=== PATIENT | male | born 1960 | race Caucasian/White ===

== ENCOUNTER 2018-09-27 20:49 | Inpatient (IN) | payer BC, OTHER ==
--- NOTE | 2018-09-27 21:46 | ED ---
Headache - HPI Summary HPI Summary: The patient is a 58 year old M transferred to [facility] from [facility] with a chief complaint of a headache that started earlier today. He stated that the headache has been getting better but is still present and is located behind his eyes. He stated that the pain is currently a 2/10 in severity. He stated that he has trouble focusing his vision. He stated that he recently has had a PICC line placed in his left arm on 09/24/18 at 0500. He stated that he is currently taking ABX for an infection on his L foot. He is currently on Eilquis. He was transferred to [facility] for further neurological evaluations and an MRI per [facility]. - History Of Current Complaint Chief Complaint: EDHeadache Stated Complaint: MRI TO RULE OUT A STROKE PER EMS Time Seen by Provider: 09/27/18 21:38 Hx Obtained From: Patient Onset/Duration: Sudden Onset, Still Present Initially Headache Was: Moderate Currently Pain Is: Current Pain Scale(0-10)= - 2/10, Mild Timing: Constant Character: Migraine Location of Headache: Frontal - pt stated that it ws behind his eyes Aggravating Factor: Nothing Allevating Factors: Nothing Associated Signs And Symptoms: Negative - CP, SOB, fevers, chills, abdominal pain, N/V, and diaphoresis., Visual Changes - trouble focusing - Allergies/Home Medications Allergies/Adverse Reactions: Allergies Allergy/AdvReac Type Severity Reaction Status Date / Time niacin Allergy Rash Verified 09/27/18 21:34 Home Medications: Home Medications Apixaban* [Eliquis*] 5 mg PO DAILY 09/28/18 [History Confirmed 09/28/18] Humalog 15 units .ROUTE ACHS 09/28/18 [History Confirmed 09/28/18] Metoprolol Tartrate TAB* 25 mg PO DAILY 09/28/18 [History Confirmed 09/28/18] Toujeo Solostar Pen (NF) 90 units .ROUTE DAILY 09/28/18 [History Confirmed 09/28] Trulicity 1.5 mg PO DAILY 09/28/18 [History Confirmed 09/28/18] dilTIAZem HCl [Diltiazem HCl] 120 mg PO BID 09/28/18 [History Confirmed 09/28/18 ] glipiZIDE [Glipizide] 5 mg PO BID 09/28/18 [History Confirmed 09/28/18] PMH/Surg Hx/FS Hx/Imm Hx Previously Healthy: No Infectious Disease History: No Infectious Disease History: Denies: Traveled Outside the [place] in Last 30 Days - Social History Alcohol Use: None Substance Use Type: Reports: None Smoking Status (MU): Never Smoked Tobacco Review of Systems Negative: Fever, Chills, Skin Diaphoresis Positive: Other - trouble focusing Negative: Chest Pain Negative: Shortness Of Breath Negative: Abdominal Pain, Vomiting, Nausea Positive: Headache - migraine, located frontl behind his eyes All Other Systems Reviewed And Are Negative: Yes Physical Exam - Summary Physical Exam Summary: VITAL SIGNS: Reviewed. GENERAL: Patient is a well-developed and nourished male who is lying comfortable in the stretcher. Patient is not in any acute respiratory distress. HEAD AND FACE: No signs of trauma. No ecchymosis, hematomas or skull depressions. No sinus tenderness. EYES: PERRLA, EOMI x 2, No injected conjunctiva, no nystagmus. EARS: Hearing grossly intact. Ear canals and tympanic membranes are within normal limits. MOUTH: Oropharynx within normal limits. NECK: Supple, trachea is midline, no adenopathy, no JVD, no carotid bruit, no c- spine tenderness, neck with full ROM CHEST: Symmetric, no tenderness at palpation LUNGS: Clear to auscultation bilaterally. No wheezing or crackles. CVS: Regular rate and rhythm, S1 and S2 present, no murmurs or gallops appreciated. ABDOMEN: Soft, non-tender. No signs of distention. No rebound no guarding, and no masses palpated. Bowel sounds are normal. EXTREMITIES: FROM in all major joints, no edema, no cyanosis or clubbing. NEURO: Alert and oriented x 3. No acute neurological deficits. Speech is normal and follows commands. He is neurologically intact. SKIN: Dry and warm, picc line in L upper arm, peripheral arm from [place] in his R hand, ulcer on his L 1st toe. Triage Information Reviewed: Yes Vital Signs On Initial Exam: Initial Vitals Temp Pulse Resp BP Pulse Ox 98.2 F 104 18 151/91 94 09/27/18 20:56 09/27/18 20:56 09/27/18 20:56 09/27/18 20:56 09/27/18 20:56 Vital Signs Reviewed: Yes Diagnostics - Vital Signs Vital Signs Temp Pulse Resp BP Pulse Ox 09/27/18 21:30 106 20 132/99 96 09/27/18 21:01 110 18 94 09/27/18 21:00 105 23 151/98 94 09/27/18 20:56 98.2 F 104 18 151/91 94 - Laboratory Result Diagrams: 09/27/18 21:52 09/27/18 21:52 Lab Statement: Any lab studies that have been ordered have been reviewed, and results considered in the medical decision making process. - Radiology CXR Radiology Interpretation Completed By: ED Physician Summary of Radiographic Findings: No acute processes. Pending official review. - CT Brain MRI CT Interpretation Completed By: Radiologist Summary of CT Findings: 1. Restricted diffusion is identified within the left cerebellar lobe,. consistent with an acute infarct. Additional foci of restricted diffusion are identified within the bilateral occipital lobes, right frontal cortex, and right thalamus, also consistent with acute infarcts. Due to the distribution of ischemic change, embolic disease is considered. 2. There are scattered additional foci of FLAIR hyperintensity within the. cerebral white matter. In a patient this age, this likely represents chronic small vessel ischemic disease. 3. Mild atrophy. 4. There is abnormal signal intensity within the left transverse venous sinus, suggestive of slow flow or thrombosis. This can be further evaluated with MRV. 5. Posterior to the right cerebellar lobe, an extra-axial fluid collection is. identified, consistent with an arachnoid cyst or yang cisterna magna variant. ED physician has reviewed this report. Neck CTA CT Interpretation Completed By: Radiologist Summary of CT Findings: 1. No stenosis or occlusion of the extracranial internal carotid arteries. bilaterally. 2. A dominant left vertebral artery is visualized. 3. Additional findings described above. ED physician has reviewed this report. Head CTA CT Interpretation Completed By: Radiologist Summary of CT Findings: 1. There is a segment of the distal V4 segment of the right vertebral artery. with absence of enhancement, consistent with occlusion. 2. A dominant left vertebral artery is identified. 3. The left transverse venous sinuses poorly visualized medially. When. correlated with the MRI from the same day, thrombosis is considered. - EKG 2144 Cardiac Rate: Tachycardia - 101 BPM EKG Rhythm: Sinus Rhythm ST Segment: Normal Summary of EKG Findings: Sinus tachycardia 101 BPM and Q waves in inferior leads. ST waves are normal. Interpreted by Dr. Colby at 2144 09/27/18. Re-Evaluation - Re-Evaluation First Eval Re-Evaluation Time: 22:12 Change: Unchanged Comment: The pts PICC line was found to be in his artery and was successfully removed under sterile conditions at 2210. After the line was removed there was some active bleeding and the pts arm was bandaged and the wound was sterilized to prepare him for an MRI. The wound was bandaged by an lyle wrap. Second Eval Re-Evaluation Time: 00:01 Change: Improved Comment: Stated that he has no headache, visual changes, or weakness. Pt has L foot drop which the pt reported as old. Headache Course/Dx - Course Course Of Treatment: The patient is a 58 year old M transferred to [facility] from [facility] with a chief complaint of a migraine headache that started earlier today. He stated that the headache has been getting better but is still present and is located behind his eyes. He stated that the pain is currently a 2 /10 in severity. Pryor stated that the pt may need an MRI of his head and further neurological evaluations. His PE shows that the pt is neurologically intact and has a picc line in L upper arm, peripheral arm from [place] in his R hand, ulcer on his L 1st toe. This pt has abnormal lab results in WBC, RBC, MCH, Absolute neuts, and Absoloute monos. His EKG showed that he has Sinus tachycardia 101 BPM and Q waves in inferior leads. ST waves are normal. The pt s PICC line was found to be in his artery and was successfully removed under sterile conditions at 2210. After the line was removed there was some active bleeding and the pts arm was bandaged and the wound was sterilized to prepare him for an MRI. The wound was bandaged by an lyle wrap. CXR showed no acute processes. His Brain MRI shows the followin. Restricted diffusion is identified within the left cerebellar lobe,. consistent with an acute infarct. Additional foci of restricted diffusion are. identified within the bilateral occipital lobes, right frontal cortex, and. right thalamus, also consistent with acute infarcts. Due to the distribution of. ischemic change, embolic disease is considered. 2. There are scattered additional foci of FLAIR hyperintensity within the. cerebral white matter. In a patient this age, this likely represents chronic. small vessel ischemic disease. 3. Mild atrophy. 4. There is abnormal signal intensity within the left transverse venous sinus, suggestive of slow flow or thrombosis. This can be further evaluated with MRV. 5. Posterior to the right cerebellar lobe, an extra-axial fluid collection is. identified, consistent with an arachnoid cyst or yang cisterna magna variant. His head CTA showed the followin. There is a segment of the distal V4 segment of the right vertebral artery. with absence of enhancement, consistent with occlusion. 2. A dominant left vertebral artery is identified. 3. The left transverse venous sinuses poorly visualized medially. When. correlated with the MRI from the same day, thrombosis is considered. His Neck CTA shows the followin. No stenosis or occlusion of the extracranial internal carotid arteries. bilaterally. 2. A dominant left vertebral artery is visualized. 3. Additional findings described above. Dr. Guillen, neurology, was contacted who stated that the pt needed a head and neck CTA. The pt should also be admitted to [facility] for further work-up. Discussed head CTA with Dr. Guillen who reviewed the findings and stated that there was no need for heparin at 0415. Dr. Cooney, Hospitalist, admitted the pt to [facility] for further evaluation at 0439 with a Dx of a CVA. - Diagnoses Differential Diagnosis/HQI/PQRI: CVA Provider Diagnoses: CVA (cerebral vascular accident) Discharge - Sign-Out/Discharge Documenting (check all that apply): Patient Departure - admitted Patient Received Moderate/Deep Sedation with Procedure: No - Discharge Plan Condition: Stable Disposition: ADMITTED TO [facility] - Attestation Statements Document Initiated by Scribe: Yes Documenting Scribe: Mio Reid Provider For Whom Beth is Documenting (Include Credential): Gladis Colby MD Scribe Attestation: Mio Snow, scribed for Gladis Colby MD on 09/28/18 at 0448. Status of Scribe Document: Ready Consult Consult: Dr. Guillen, neurology, was contacted at 0050 who stated that the pt needed a head and neck CTA. The pt should also be admitted to [facility] for further work-up. Discussed head CTA with Dr. Reynoso who reviewed the findings and stated that there was no need for heparin.
[2018-09-27 22:00] LABS: ABS Basophils 0.2 10^3/ul (0-0.2); ABS Lymphocytes 3.7 10^3/ul (1.0-4.8); ABS Neutrophils 11.9 10^3/ul (1.5-7.7); Eosinophil % 0.2 %; Hematocrit 51 % (42-52); Hemoglobin 17.6 g/dL (14.0-18.0); Mean Corpuscular HGB Conc 35 g/dL (31-36); Mean Corpuscular Hemoglobin 32 pg (27-31); Mean Corpuscular Volume 92 fL (80-94); Mean Platelet Volume 10.2 fL (7.4-10.4); Nucleated Red Blood Cells % 0.1; Platelet Count 221 10^3/uL (150-450); Red Blood Count 5.49 10^6 /uL (4.18-5.48); Red Cell Distribution Width 13 % (10-15); White Blood Count 16.7 10^3/uL (3.5-10.8)
[2018-09-27 22:10] LABS: Activated Partial Thrombo Time 34.4 seconds (26.0-38.0); INR 1.01 (0.82-1.09)
[2018-09-27 22:18] LABS: Albumin/Globulin Ratio 1.3 (1-3); BUN/Creatinine Ratio 17.6 (8-20); Calcium 9.8 mg/dL (8.6-10.3); EGFR African American 111.3 (>60); EGFR Non-African American 91.9 (>60); Potassium 3.3 mmol/L (3.5-5.0); Total Bilirubin 0.6 mg/dL (0.2-1.0)
[2018-09-27] MEDS ORDERED: Potassium Chlor TAB* 20 MEQ TAB.ER PO ONE (22:28)
[2018-09-28] MEDS ORDERED: Iodixanol* (CONTRAST) 320 MG/ML 100 ML SDV IV ONE (01:31)
--- OUTSIDE RECORDS SUMMARY | 2018-09-28 03:43 | XMS REPORT | Continuity of Care Document ---
:1960 External Reference #:[id number] Author Name Julisa Montoya M.D. Address [address] [place] [address] Care Team Providers Name Role Phone Oli Lucero MD Care Team Information Private Secretary Unavailable Oli Lucero MD Primary Care Physician Unavailable Payers Date Identification Numbers Payment Provider Subscriber Policy Number: [id number] [place] [employer] Kaleb Kc PayID: [id number] [address] [address] [place] [address] Expires: 2018 Policy Number: [id number] [employer] Kaleb Kc PayID: [id number] [address] [address] [place] [address] Problems Active Problems Provider Date Candidiasis of skin and nails Julisa Montoya M.D. Onset: 09/08/2018 Secondary polycythemia Julisa Montoya M.D. Onset: 09/08/2018 Atrial fibrillation Julisa Montoya M.D. Onset: 06/30/2018 Type 2 diabetes mellitus with ulcer Julisa Montoya M.D. Onset: 06/30/2018 Acute osteomyelitis of ankle and/or Julisa Montoya M.D. Onset: 06/30/2018 foot Type 2 diabetes mellitus Tiffany Morris, NANDA, Onset: 05/21/2012 DISPATCH SPECIALIST Benign essential hypertension Tiffany Morris, MSN, Onset: 05/21/2012 DISPATCH SPECIALIST Premature beats Tiffany Morris, MSN, Onset: 05/21/2012 DISPATCH SPECIALIST Dyspnea Tiffany Morris, MSN, Onset: 05/21/2012 DISPATCH SPECIALIST Family History Date Family Member(s) Observation Comments Father Rheumatic Fever CVAs. at 67. 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 Work Status Not Currently Working ADL's/IADL's Independent with all ADL's Drive Patient drives Tobacco Use Start: Unknown End: Former Cigarette Smoker 1984 Unknown ETOH Use Denies alcohol use Tobacco Use Start: Unknown Patient denies history of smoking Recreational Drug Use Denies Drug Use Smoking Status Reviewed: 09/08/18 Patient denies history of smoking Allergies, Adverse Reactions, Alerts Active Allergies Reaction Severity Comments Date Storm Inhibitor cough 05/21/2012 Inactive Allergies NKDA 05/21/2012 Medications Active Medications SIG Qnty Indications Ordering Date Provider Fluconazole Take 2 tabs po on 43tabs M86.172 Julisa Montoya, 08/05/2018 200mg day one the M.D. Tablets continue with one tab PO daily for 42 days. Daptomycin 6 mg/kg iv x 1 1units M86.172 Julisa Montoya, 08/04/2018 500mg dose M.D. Solution Rec Daptomycin 6 mg/kg iv x 42 6weeksupply M86.172 Julisa Montoya, 08/04/2018 500mg days M.D. Solution Rec PICC Line picc line M86.172 Julisa Montoya, 08/04/2018 Insertion Per insertion per M.D. Protocol protocol [facility] M86.172 Julisa Montoya, 08/04/2018 Agency term IV M.D. antibiotics Flagyl one by mouth three 126tabs M86.172 Julisa Montoya, 08/04/2018 500mg times a day x 42 M.D. Tablets days Toujeo Max Oli Lucero MD Solostar 300Unit/ML Solution Pen-Inject Eliquis Unknown 5mg Tablets Diltiazem HCL Oli Lucero MD 120mg Tablets Metoprolol Unknown Tartrate 25mg Tablets Trulicity Unknown 1.5mg/0.5ML Solution Pen-Inject Glipizide Unknown 5mg Tablets History Medications Glipizide 1 po bid Unknown - 06/30/2018 5mg Tablets Metformin HCL 1 po bid Unknown - 06/30/2018 850mg Tablets Humulin R sliding scale Unknown - 06/30/2018 100Unit/ML Solution Amlodipine Besylate 1 po qd 90tabs Unknown - 06/30/2018 10mg Tablets Aspir-81 1 po qd 60tabs Unknown - 06/30/[address] Fish Oil po qd 90caps Unknown - 06/30/2018 1000mg Capsules Basaglar Jose Alfredopen Unknown - 08/04/2018 100Unit/ML Solution Pen-Inject Sulfamethoxazole/Trimethoprim Unknown - 08/04/2018 DS 800-160mg Tablets Vital Signs Date Vital Result Comment 09/08/2018 2:11pm BP Systolic Sitting Right Arm 165 mmHg BP Diastolic Sitting Right Arm 105 mmHg Body Temperature 97.4 F Heart Rate 75 /min Height 75 inches 6'3" Weight 227.00 lb BMI (Body Mass Index) 28.4 kg/m2 BSA (Body Surface Area) 2.32 m2 [place] body weight in kilograms 89 kg 08/04/2018 2:28pm BP Systolic Sitting Left Arm 161 mmHg BP Diastolic Sitting Left Arm 93 mmHg Body Temperature 97.4 F Heart Rate 89 /min Height 75 inches 6'3" Weight 235.00 lb BMI (Body Mass Index) 29.4 kg/m2 BSA (Body Surface Area) 2.35 m2 [place] body weight in kilograms 89 kg 06/30/2018 1:03pm BP Systolic Sitting Left Arm 150 mmHg BP Diastolic Sitting Left Arm 96 mmHg Body Temperature 97.9 F Heart Rate 90 /min Height 75 inches 6'3" Weight 230.00 lb BMI (Body Mass Index) 28.7 kg/m2 BSA (Body Surface Area) 2.33 m2 [place] body weight in kilograms 89 kg 05/21/2012 9:16am BP Systolic Sitting Right Arm 138 mmHg BP Diastolic Sitting Right Arm 96 mmHg BP Systolic Sitting Left Arm 142 mmHg BP Diastolic Sitting Left Arm 98 mmHg Heart Rate 71 /min Respiratory Rate 16 /min Height 75 inches 6'3" Weight 229.00 lb BMI (Body Mass Index) 28.6 kg/m2 Results Test Date Facility Test Result H/L Range Note CBC 09/06/2018 [facility] White Blood 8.1 K/uL Normal 3.4-10.5 1 W/Automated [address] [place] [address] [phone] Red Blood Count 5.37 M/uL Normal 4.20-5.80 Hemoglobin 17.4 gm/dL High 12.8-17.0 Hematocrit 49.9 % High 38.0-48.0 Mean Cell Volume 92.9 fl Normal 80.0-96.0 Mean Corpuscular HGB 32.4 pg Normal 27.0-33.0 Mean Corpuscular HGB Conc 34.9 g/dL Normal 31.7-36.0 Platelet Count 218 K/uL Normal 155-360 Red Cell Distri Width SD 42.6 fl Normal 36-51 Red Cell Distri Width %CV 12.4 % Normal 11.6-15.8 Mean Platelet Volume 12.4 fl High 6.6-10.6 Neut% 55.7 % Normal 33.0-73.0 Lymph % 34.8 % Normal 20.0-42.0 [place] % 5.9 % Normal 0.0-10.0 Eo% 1.7 % Normal 0.0-6.6 Bas% 1.2 % High 0.0-1.1 Immature Grans 0.7 % Normal 0.0-5.0 NRBC % 0.0 /100WBC < 10/ 100 WBC Neut# 4.52 K/uL Normal 1.8-7.0 Lymph # 2.83 K/uL Normal 1.0-4.0 [place] # 0.48 K/uL Normal 0.0-0.8 Eos # 0.14 K/uL Normal 0.0-0.5 Baso # 0.10 K/uL Normal 0.0-0.1 Immature Grans Absolute 0.06 K/uL NRBC # 0.00 K/uL Comprehensive Metabolic 09/06/2018 [facility] Glucose 233 mg/dL High 74-[address] [place] [address] [phone] BUN 15 mg/dL Normal 7-18 Creatinine 0.8 mg/dL Normal 0.6-1.3 Glom Filtration Rate, Estimate >60 mL/min >60 If >60 mL/min >60 2 BUN/Creat 18.7 ratio Sodium 140 mmol/L Normal 136-145 Potassium 4.1 mmol/L Normal 3.5-5.1 Chloride 105 mmol/L Normal 98-107 Carbon Dioxide 27 mmol/L Normal 21-32 Anion Gap 8 mEq/L Normal 8-16 Calcium 8.7 mg/dL Normal 8.5-10.1 Total Protein 6.9 g/dL Normal 6.4-8.2 Albumin 3.4 g/dL Normal 3.4-5.0 Globulin 3.5 g/dL Normal 1.9-4.3 Alb/Glob 1.0 ratio Bilirubin,Total 0.4 mg/dL Normal 0.2-1.0 Sgot/Ast 62 U/L High 15-37 SGPT/Alt 103 U/L High 12-78 Alkaline Phosphatase 115 U/L Normal 45-117 Laboratory test finding 09/06/2018 [facility] CK 137 U/L Normal 39-308 3 [address] [place], [place] [id number] [phone] C-Reactive Protein,Quant < 3.0 mg/L <3.0 4 Laboratory test finding 08/30/2018 [facility] CK 187 U/L Normal 39-308 5, 6 [address] [place] [address] [phone] C-Reactive Protein,Quant < 3.0 mg/L <3.0 7 Comprehensive Metabolic 08/30/2018 [facility] Glucose 196 mg/dL High 74-106 Panel [address] [place] [address] [phone] BUN 16 mg/dL Normal 7-18 Creatinine 0.9 mg/dL Normal 0.6-1.3 Glom Filtration Rate, Estimate >60 mL/min >60 If >60 mL/min >60 8 BUN/Creat 17.7 ratio Sodium 141 mmol/L Normal 136-145 Potassium 4.1 mmol/L Normal 3.5-5.1 Chloride 105 mmol/L Normal 98-107 Carbon Dioxide 26 mmol/L Normal 21-32 Anion Gap 10 mEq/L Normal 8-16 Calcium 8.6 mg/dL Normal 8.5-10.1 Total Protein 6.9 g/dL Normal 6.4-8.2 Albumin 3.4 g/dL Normal 3.4-5.0 Globulin 3.5 g/dL Normal 1.9-4.3 Alb/Glob 1.0 ratio Bilirubin,Total 0.4 mg/dL Normal 0.2-1.0 Sgot/Ast 60 U/L High 15-37 SGPT/Alt 103 U/L High 12-78 Alkaline Phosphatase 100 U/L Normal 45-117 CBC W/Automated 08/30/2018 [facility] White Blood 7.8 K/uL Normal 3.4-10.[address] Count [place], [place] [id number] [phone] Red Blood Count 5.39 M/uL Normal 4.20-5.80 Hemoglobin 17.5 gm/dL High 12.8-17.0 Hematocrit 50.9 % High 38.0-48.0 Mean Cell Volume 94.4 fl Normal 80.0-96.0 Mean Corpuscular HGB 32.5 pg Normal 27.0-33.0 Mean Corpuscular HGB Conc 34.4 g/dL Normal 31.7-36.0 Platelet Count 212 K/uL Normal 155-360 Red Cell Distri Width SD 43.8 fl Normal 36-51 Red Cell Distri Width %CV 12.8 % Normal 11.6-15.8 Mean Platelet Volume 12.5 fl High 6.6-10.6 Neut% 51.7 % Normal 33.0-73.0 Lymph % 37.7 % Normal 20.0-42.0 [place] % 6.7 % Normal 0.0-10.0 Eo% 1.9 % Normal 0.0-6.6 Bas% 1.4 % High 0.0-1.1 Immature Grans 0.6 % Normal 0.0-5.0 NRBC % 0.0 /100WBC < 10/ 100 WBC Neut# 4.02 K/uL Normal 1.8-7.0 Lymph # 2.93 K/uL Normal 1.0-4.0 [place] # 0.52 K/uL Normal 0.0-0.8 Eos # 0.15 K/uL Normal 0.0-0.5 Baso # 0.11 K/uL High 0.0-0.1 Immature Grans Absolute 0.05 K/uL NRBC # 0.00 K/uL CBC W/Automated 08/23/2018 [facility] White Blood 11.0 K/uL High 3.4-10.[address] Count [place], [place] [id number] [phone] Red Blood Count 5.79 M/uL Normal 4.20-5.80 Hemoglobin 18.7 gm/dL High 12.8-17.0 Hematocrit 55.1 % High 38.0-48.0 Mean Cell Volume 95.2 fl Normal 80.0-96.0 Mean Corpuscular HGB 32.3 pg Normal 27.0-33.0 Mean Corpuscular HGB Conc 33.9 g/dL Normal 31.7-36.0 Platelet Count 227 K/uL Normal 155-360 Red Cell Distri Width SD 45.4 fl Normal 36-51 Red Cell Distri Width %CV 13.1 % Normal 11.6-15.8 Mean Platelet Volume 12.4 fl High 6.6-10.6 Neut% 62.4 % Normal 33.0-73.0 Lymph % 28.9 % Normal 20.0-42.0 [place] % 5.4 % Normal 0.0-10.0 Eo% 1.3 % Normal 0.0-6.6 Bas% 1.5 % High 0.0-1.1 Immature Grans 0.5 % Normal 0.0-5.0 NRBC % 0.0 /100WBC < 10/ 100 WBC Neut# 6.88 K/uL Normal 1.8-7.0 Lymph # 3.19 K/uL Normal 1.0-4.0 [place] # 0.59 K/uL Normal 0.0-0.8 Eos # 0.14 K/uL Normal 0.0-0.5 Baso # 0.16 K/uL High 0.0-0.1 Immature Grans Absolute 0.06 K/uL NRBC # 0.00 K/uL Laboratory test 08/23/2018 [facility] C-Reactive < 3.0 mg/L <3.0 [address] Protein,[place] [address] [phone] CK 117 U/L Normal 39-308 10 Comprehensive Metabolic 08/23/2018 [facility] Glucose 136 mg/dL High 74-[address] [place] [address] [phone] BUN 18 mg/dL Normal 7-18 Creatinine 0.9 mg/dL Normal 0.6-1.3 Glom Filtration Rate, Estimate >60 mL/min >60 If >60 mL/min >60 11 BUN/Creat 20.0 ratio Sodium 142 mmol/L Normal 136-145 Potassium 3.7 mmol/L Normal 3.5-5.1 Chloride 106 mmol/L Normal 98-107 Carbon Dioxide 25 mmol/L Normal 21-32 Anion Gap 11 mEq/L Normal 8-16 Calcium 9.0 mg/dL Normal 8.5-10.1 Total Protein 7.1 g/dL Normal 6.4-8.2 Albumin 3.6 g/dL Normal 3.4-5.0 Globulin 3.5 g/dL Normal 1.9-4.3 Alb/Glob 1.0 ratio Bilirubin,Total 0.5 mg/dL Normal 0.2-1.0 Sgot/Ast 79 U/L High 15-37 SGPT/Alt 118 U/L High 12-78 Alkaline Phosphatase 99 U/L Normal 45-117 Anaerobic Culture 07/29/2018 [facility] Gram Stain RARE GRAM 12, 13 W/ GR Stain [address] POSITI <[place] [address] NOTE> [phone] Gram Stain RARE WHITE BLOOD <SEE NOTE> 14 Anaerobic Culture NO ANAEROBES ISO <SEE NOTE> 15 Tissue Culture W/ 07/29/2018 [facility] Gram Stain RARE GRAM POSITI 16 Gram Stain [address] <SEE NOTE> [place] [address] [phone] Gram Stain RARE WHITE BLOOD <SEE NOTE> 17 Aerobic Culture NO PATHOGENS ISO <SEE NOTE> 18 Blood Culture 06/30/2018 [facility] Blood Culture NO GROWTH: 19, [address] Aerobic FINAL <[place] [address] NOTE> [phone] Blood Culture Anaerobic NO GROWTH: FINAL <SEE NOTE> 21 Protime 06/30/2018 [facility] Protime 14.5 seconds High 12.0-14.[address] [place] [address] [phone] Inr 1.1 Normal 0.9-1.1 22 Anticoagulant Therapy? Unknown Comprehensive Metabolic 06/30/2018 [facility] Glucose 284 mg/dL High 74-[address] [place] [address] [phone] BUN 21 mg/dL High 7-18 Creatinine 1.0 mg/dL Normal 0.6-1.3 Glom Filtration Rate, Estimate >60 mL/min >60 If >60 mL/min >60 23 BUN/Creat 21.0 ratio Sodium 137 mmol/L Normal 136-145 Potassium 4.2 mmol/L Normal 3.5-5.1 Chloride 107 mmol/L Normal 98-107 Carbon Dioxide 22 mmol/L Normal 21-32 Anion Gap 8 mEq/L Normal 8-16 Calcium 9.0 mg/dL Normal 8.5-10.1 Total Protein 7.2 g/dL Normal 6.4-8.2 Albumin 3.7 g/dL Normal 3.4-5.0 Globulin 3.5 g/dL Normal 1.9-4.3 Alb/Glob 1.1 ratio Bilirubin,Total 0.4 mg/dL Normal 0.2-1.0 Sgot/Ast 30 U/L Normal 15-37 SGPT/Alt 81 U/L High 12-78 Alkaline Phosphatase 124 U/L High 45-117 Laboratory test 06/30/2018 [facility] CK 160 U/L Normal 39-[address] [place] [address] [phone] CBC W/Automated 06/30/2018 [facility] White Blood 9.4 K/uL Normal 3.4-10.[address] [place] [address] [phone] Red Blood Count 5.52 M/uL Normal 4.20-5.80 Hemoglobin 17.9 gm/dL High 12.8-17.0 Hematocrit 50.7 % High 38.0-48.0 Mean Cell Volume 91.8 fl Normal 80.0-96.0 Mean Corpuscular HGB 32.4 pg Normal 27.0-33.0 Mean Corpuscular HGB Conc 35.3 g/dL Normal 31.7-36.0 Platelet Count 224 K/uL Normal 155-360 Red Cell Distri Width SD 41.4 fl Normal 36-51 Red Cell Distri Width %CV 12.3 % Normal 11.6-15.8 Mean Platelet Volume 11.6 fl High 6.6-10.6 Neut% 63.5 % Normal 33.0-73.0 Lymph % 27.1 % Normal 20.0-42.0 [place] % 6.3 % Normal 0.0-10.0 Eo% 1.3 % Normal 0.0-6.6 Bas% 1.2 % High 0.0-1.1 Immature Grans 0.6 % Normal 0.0-5.0 NRBC % 0.0 /100WBC < 10/ 100 WBC Neut# 5.94 K/uL Normal 1.8-7.0 Lymph # 2.53 K/uL Normal 1.0-4.0 [place] # 0.59 K/uL Normal 0.0-0.8 Eos # 0.12 K/uL Normal 0.0-0.5 Baso # 0.11 K/uL High 0.0-0.1 Immature Grans Absolute 0.06 K/uL NRBC # 0.00 K/uL Anticoagulant Therapy? Unknown Laboratory test 06/30/2018 [facility] C-Reactive < 3.0 mg/L <3.[address] Protein,[place] [address] [phone] Blood Culture 06/30/2018 [facility] Blood Culture NO GROWTH: [address] Aerobic FINAL <[place] [address] NOTE> [phone] Blood Culture Anaerobic NO GROWTH: FINAL <SEE NOTE> 25 1 HBO THERAPY 2 Note: Persistent reduction for 3 months or more in an eGFR <60 mL/min/1.73 m2 defines CKD. Patients with eGFR values >/=60 mL/min/1.73 m2 may also have CKD if evidence of persistent proteinuria is present. The original MDRD equation for estimated GFR is not valid for patients less than 18 years of age. Additional information may be found at [email or web address]. 3 FAX RESULTS TO HCR [phone] FAX RESULTS TO HCR [phone] 5 M86.172 6 [facility] FAX [phone] [facility] FAX [phone] Note: Persistent reduction for 3 months or more in an eGFR <60 mL/min/1.73 m2 defines CKD. Patients with eGFR values >/=60 mL/min/1.73 m2 may also have CKD if evidence of persistent proteinuria is present. The original MDRD equation for estimated GFR is not valid for patients less than 18 years of age. Additional information may be found at www.[email or web address]. 9 COPY TO BRIOVA [phone] 10 COPY TO BRIOVA [phone] Note: Persistent reduction for 3 months or more in an eGFR <60 mL/min/1.73 m2 defines CKD. Patients with eGFR values >/=60 mL/min/1.73 m2 may also have CKD if evidence of persistent proteinuria is present. The original MDRD equation for estimated GFR is not valid for patients less than 18 years of age. Additional information may be found at [email or web address]. 12 M86.172 OSTEOMYLITIS LEFT FOOT 13 RARE GRAM POSITIVE COCCI 14 RARE WHITE BLOOD CELLS 15 NO ANAEROBES ISOLATED 16 RARE GRAM POSITIVE COCCI 17 RARE WHITE BLOOD CELLS 18 NO PATHOGENS ISOLATED 19 M86.172 20 NO GROWTH: FINAL REPORT 21 NO GROWTH: FINAL REPORT 22 THERAPEUTIC INR RANGE: 2.0 - 3.0 DVT, Pulmonary embolus, prophylaxis against venous thrombosis or systemic embolization in high risk patients. 2.5 - 3.5 Mechanical heart valves 23 Note: Persistent reduction for 3 months or more in an eGFR <60 mL/min/1.73 m2 defines CKD. Patients with eGFR values >/=60 mL/min/1.73 m2 may also have CKD if evidence of persistent proteinuria is present. The original MDRD equation for estimated GFR is not valid for patients less than 18 years of age. Additional information may be found at www.[email or web address]. 24 NO GROWTH: FINAL REPORT 25 NO GROWTH: FINAL REPORT Procedures Date Code Description Status 06/14/2012 56269 ECHO Transthoracic Inc Performance Continuous Completed Electrocardio 05/21/2012 96252 EKG-Tracing And Report Completed 05/21/2012 67489 EKG-Tracing And Report Completed 02/07/2008 82776 Radiology, Hip Complete 2 Views Completed 02/07/2008 60605 Radiology, Pelvis 1 Or 2 Views Completed 12/09/2007 34247 Radiology, Hip Complete 2 Views Completed 12/09/2007 33139 Radiology, Pelvis 1 Or 2 Views Completed 10/28/2007 70068 Radiology, Hip Complete 2 Views Completed 10/28/2007 08386 Radiology, Pelvis 1 Or 2 Views Completed 09/30/2007 87172 Radiology, Hip Complete 2 Views Completed 08/24/2007 06923 Radiology, Hips Min. 2 Views, Including Pelvis Completed 05/19/2007 48600 Percutaneous skeletal fixation femoral fracture proximal Completed end,neck Encounters Type Date Location Provider Dx Diagnosis Office Visit 09/08/2018 Physical Medicine Julisa Montoya M86.172 Other acute 1:45p & Infectious M.D. osteomyelitis, Disease left ankle and foot D75.1 Secondary polycythemia I10 Essential (primary) hypertension E11.621 Type 2 diabetes mellitus with foot ulcer I48.91 Unspecified atrial fibrillation B37.2 Candidiasis of skin and nail Office Visit 08/04/2018 Physical Julisa Montoya M86.172 Other acute 2:00p Medicine & M.D. osteomyelitis, left Infectious ankle and foot Disease E11.621 Type 2 diabetes mellitus with foot ulcer I10 Essential (primary) hypertension I48.91 Unspecified atrial fibrillation Office Visit 06/30/2018 Physical Julisa Montoya M86.172 Other acute 1:00p Medicine & M.D. osteomyelitis, left Infectious ankle and foot Disease I10 Essential (primary) hypertension E11.621 Type 2 diabetes mellitus with foot ulcer I48.91 Unspecified atrial fibrillation Office Visit 05/21/2012 9:30a Cardiology Office Tiffany Morris 786.05 Shortness Of [place], MSN, Breath DISPATCH SPECIALIST 427.69 Premature Beats Other 401.1 Hypertension Benign 250.00 Diabetes Mellitus W/O Compl Type II Or Unspec Controlled Office Visit 02/07/2008 Valery Smith V67.4 Exam Follow Up 9:45a Office MD Keily Treatment Healed Fracture Office Visit 12/09/2007 Valery Smith 820.02 FX Transcervical 9:45a Office MD Keily Midcervical Section Closed Office Visit 10/28/2007 Valery Smith 820.22 FX Pertrochanteric 10:45a Office MD Keily Subtrochanteric Section Closed V67.4 Exam Follow Up Treatment Healed Fracture Office Visit 09/30/2007 Valery Smith 820.02 FX Transcervical 9:30a Office MD Keily Midcervical Section Closed V67.4 Exam Follow Up Treatment Healed Fracture Office Visit 08/24/2007 Valery Smith 820.02 FX Transcervical 8:45a Office MD Keily Midcervical Section Closed Plan of Treatment Future Appointment(s):10/06/2018 1:00 pm - Julisa Montoya M.D. at Physical Medicine & Infectious Lyzkmrt4810/26/2018 9:00 am - Ward Messina DPM at Podiatry Udpfku0809/08/2018 - Julisa Montoya M.D.M86.172 Other acute osteomyelitis, left ankle and footNew Xrays:MRI, Low Extremity, No Joint, W/O Contrast, Ordered : 09/08/18Follow up:3-4 fvebpQ62.1 Secondary polycythemiaReferral:Gayathri Jimenez DO, Hematology & FgowlgirN51 Essential (primary) axjqzsbzfbrjY81.621 Type 2 diabetes mellitus with foot qzfjfZ88.91 Unspecified atrial ftnjleuintuhZ77.2 Candidiasis of skin and nail
[2018-09-28] MEDS ORDERED: NS 0.9% 1000 ML** 1,000 ML IV SCH (06:00)
[2018-09-28] MEDS: Diltiazem TAB* 60 MG PO SCH ×2 (08:50→22:21)
[2018-09-28] MEDS ORDERED: Metoprolol Tartrate TAB* 25 MG PO SCH (09:00)
[2018-09-28] MEDS ORDERED: Insulin GLARGINE(*) 1 UNITS UNIT SUBCUT SCH ×2 (09:00→21:00)
--- NOTE | 2018-09-28 09:07 | PN ---
Subjective - Subjective Reason for Note: Progress Note History: I am Mr Kc's primary care physician and also his attending physician. He has had osteomyelitis and an ulcer of his right hallux. He has been receiving his care in [place]. He has had hyperbaric O2 therapy and parenteral antibacterials. He lives alone and had a PICC line in situ - this fell out when he was repairing his car. A new one was sited in his left brachial artery on 09/24/2018. He had x 2 infusions of antibacterials. He developed severe pain and headache. He did not take his eliquis the next 2 days. He presented with severe headache to [facility] emergency room and was transferred to our ICU. MRI scan suggested multiple areas of diffusion restriction left cerebellar lobe, both occipital lobes and right frontal cortex. His headache has receded. He is feeling much better. In particular, he is not aware of any focal neurological deficits. He has some "floaters" in both eyes - similar to what he has had with migraines. He has managed to walk to and fro the bathroom this morning. Active Problems: Active Problems Acute headache (Acute) R51 Arterial embolism (Acute) I74.9 CVA (cerebral vascular accident) (Acute) I63.9 Cerebrovascular accident (CVA) due to embolism (Acute) I63.9 On continuous oral anticoagulation (Acute) Z79.01 Osteomyelitis of toe of right foot (Acute) M86.9 PICC (peripherally inserted central catheter) removal (Acute) Z45.2 Diabetes mellitus with neuropathy (Chronic) E11.40 History of atrial fibrillation (Chronic) Z86.79 Hypertension, essential (Chronic) I10 Hypertriglyceridemia (Chronic) E78.1 Left hemiparesis (Chronic) G81.94 Poor compliance (Chronic) Z91.19 Type 2 diabetes mellitus with hyperglycemia (Chronic) E11.65 Current Medications: Current Medications Diltiazem HCl (Cardizem Tab*) 120 mg PO BID PENDING SALE TO [facility] Last Admin: 09/28/18 08:50 Dose: 120 mg Sodium Chloride (Ns 0.9% 1000 Ml) 1,000 mls @ 25 mls/hr IV PER RATE PENDING SALE TO [facility] Insulin Glargine (Lantus(*)) 72 units SUBCUT BID PENDING SALE TO [facility] Metoprolol Tartrate (Lopressor Tab*) 25 mg PO DAILY PENDING SALE TO [facility] Last Admin: 09/28/18 08:50 Dose: 25 mg - Review of Systems Pulmonary: Negative: Cough, Wheezing, Respiratory Distress Cardiology: Negative: Chest Pain, Palpitations, Swelling of Ankles Gastroenterology: Negative: Abdominal Pain, Nausea, Vomiting, Heartburn, Change in Bowel Habits Genital - Urinary: Negative: Dysuria, Polyuria Neurology: Positive: Headache, Change in Vision, Hx of Stroke\\TIA Negative: Change in Balancing, Change in Coordination, Change in Memory, Change in Speech, Change in Walking Psychiatry: Positive: Normal Home Medications: Home Medications Medication Instructions Recorded Confirmed Type Apixaban* [Eliquis*] 5 mg PO DAILY 09/28/18 09/28/18 History Humalog 15 units .ROUTE ACHS 09/28/18 09/28/18 History Metoprolol Tartrate TAB* 25 mg PO DAILY 09/28/18 09/28/18 History Toujeo Solostar Pen (NF) 90 units .ROUTE DAILY 09/28/18 09/28/18 History Trulicity 1.5 mg PO DAILY 09/28/18 09/28/18 History dilTIAZem HCl [Diltiazem HCl] 120 mg PO BID 09/28/18 09/28/18 History glipiZIDE [Glipizide] 5 mg PO BID 09/28/18 09/28/18 History Allergies: Allergies Allergy/AdvReac Type Severity Reaction Status Date / Time niacin Allergy Rash Verified 09/27/18 21:34 Objective - Vital Signs Vital Signs: Vital Signs 09/27/18 09/27/18 09/27/18 20:56 21:00 21:01 Temperature 98.2 F Pulse Rate 104 105 110 Respiratory 18 23 18 Rate Blood Pressure 151/91 151/98 (mmHg) O2 Sat by Pulse 94 94 94 Oximetry 09/27/18 09/27/18 09/27/18 21:30 22:00 22:01 Temperature Pulse Rate 106 105 101 Respiratory 20 27 24 Rate Blood Pressure 132/99 136/103 (mmHg) O2 Sat by Pulse 96 94 94 Oximetry 09/27/18 09/27/18 09/27/18 23:00 23:18 23:44 Temperature Pulse Rate 101 107 112 Respiratory 20 Rate Blood Pressure 150/111 138/99 (mmHg) O2 Sat by Pulse 94 96 93 Oximetry 09/27/18 09/28/18 09/28/18 23:59 00:01 00:14 Temperature Pulse Rate 102 103 102 Respiratory 9 14 22 Rate Blood Pressure 157/92 143/89 (mmHg) O2 Sat by Pulse 92 94 95 Oximetry 09/28/18 09/28/18 09/28/18 00:24 00:30 00:34 Temperature Pulse Rate 101 93 98 Respiratory 23 19 22 Rate Blood Pressure 147/86 145/103 147/100 (mmHg) O2 Sat by Pulse 94 95 93 Oximetry 09/28/18 09/28/18 09/28/18 00:39 00:44 00:49 Temperature Pulse Rate 103 100 102 Respiratory 18 7 16 Rate Blood Pressure 144/98 149/99 144/93 (mmHg) O2 Sat by Pulse 93 93 92 Oximetry 09/28/18 09/28/18 09/28/18 00:54 00:59 01:01 Temperature Pulse Rate 102 96 102 Respiratory 16 27 29 Rate Blood Pressure 150/95 146/101 (mmHg) O2 Sat by Pulse 93 92 92 Oximetry 09/28/18 09/28/18 09/28/18 01:04 01:09 01:14 Temperature Pulse Rate 91 103 102 Respiratory 21 22 23 Rate Blood Pressure 144/95 148/103 138/99 (mmHg) O2 Sat by Pulse 92 93 92 Oximetry 09/28/18 09/28/18 09/28/18 01:19 01:24 01:29 Temperature Pulse Rate 101 100 103 Respiratory 19 17 16 Rate Blood Pressure 135/100 155/101 138/103 (mmHg) O2 Sat by Pulse 92 94 92 Oximetry 09/28/18 09/28/18 09/28/18 01:34 01:39 02:00 Temperature Pulse Rate 100 94 Respiratory 14 15 20 Rate Blood Pressure 137/109 140/101 143/98 (mmHg) O2 Sat by Pulse 95 95 Oximetry 09/28/18 09/28/18 09/28/18 02:01 02:05 02:10 Temperature Pulse Rate 94 97 94 Respiratory 22 25 21 Rate Blood Pressure 147/85 149/95 (mmHg) O2 Sat by Pulse 94 93 94 Oximetry 09/28/18 09/28/18 09/28/18 02:15 02:20 02:25 Temperature Pulse Rate 96 97 Respiratory 21 19 21 Rate Blood Pressure 146/106 163/101 152/116 (mmHg) O2 Sat by Pulse 95 93 Oximetry 0809/28/18 09/28/18 02:30 02:35 02:40 Temperature Pulse Rate 98 98 92 Respiratory 16 23 22 Rate Blood Pressure 163/96 155/111 151/102 (mmHg) O2 Sat by Pulse 95 93 93 Oximetry 09/28/18 09/28/18 09/28/18 02:45 02:50 02:55 Temperature Pulse Rate 95 98 103 Respiratory 25 22 23 Rate Blood Pressure 146/106 142/98 148/107 (mmHg) O2 Sat by Pulse 93 93 92 Oximetry 09/28/18 09/28/18 09/28/18 03:00 03:05 03:10 Temperature Pulse Rate 100 101 106 Respiratory 21 23 18 Rate Blood Pressure 139/107 144/99 145/103 (mmHg) O2 Sat by Pulse 93 93 97 Oximetry 09/28/18 09/28/18 09/28/18 03:15 03:20 03:25 Temperature Pulse Rate 104 104 108 Respiratory 30 29 26 Rate Blood Pressure 148/102 153/101 138/103 (mmHg) O2 Sat by Pulse 96 97 99 Oximetry 09/28/18 09/28/18 09/28/18 03:30 03:36 03:40 Temperature Pulse Rate 105 Respiratory 19 16 19 Rate Blood Pressure 156/108 178/126 146/106 (mmHg) O2 Sat by Pulse 98 Oximetry 09/28/18 09/28/18 09/28/18 03:45 03:50 03:55 Temperature Pulse Rate Respiratory 20 15 21 Rate Blood Pressure 142/104 141/106 131/105 (mmHg) O2 Sat by Pulse Oximetry 09/28/18 09/28/18 09/28/18 04:00 04:05 04:10 Temperature Pulse Rate Respiratory 22 20 23 Rate Blood Pressure 143/101 141/103 145/103 (mmHg) O2 Sat by Pulse Oximetry 09/28/18 09/28/18 09/28/18 04:15 04:20 04:25 Temperature Pulse Rate Respiratory 24 23 22 Rate Blood Pressure 142/103 145/104 150/99 (mmHg) O2 Sat by Pulse Oximetry 09/28/18 09/28/18 09/28/18 04:30 04:35 04:40 Temperature Pulse Rate Respiratory 25 22 20 Rate Blood Pressure 140/106 138/100 141/110 (mmHg) O2 Sat by Pulse Oximetry 09/28/18 09/28/18 09/28/18 04:45 04:51 04:56 Temperature Pulse Rate Respiratory 21 21 Rate Blood Pressure 145/101 147/99 127/71 (mmHg) O2 Sat by Pulse Oximetry 09/28/18 09/28/18 09/28/18 05:01 05:05 05:10 Temperature Pulse Rate Respiratory Rate Blood Pressure 131/67 115/75 115/78 (mmHg) O2 Sat by Pulse Oximetry 09/28/18 09/28/18 09/28/18 05:16 05:20 05:25 Temperature Pulse Rate Respiratory Rate Blood Pressure 142/82 144/100 136/74 (mmHg) O2 Sat by Pulse Oximetry 09/28/18 09/28/18 09/28/18 06:08 06:11 06:40 Temperature 97.1 F 98.2 F Pulse Rate 101 96 96 Respiratory 16 15 19 Rate Blood Pressure 162/90 140/103 162/90 (mmHg) O2 Sat by Pulse 94 95 94 Oximetry - Intake and Output Intake and Output: Intake & Output 09/25/18 09/26/18 09/27/18 09/28/18 11:59 11:59 11:59 11:59 Weight 230 lb ADLs: Meal Record Start: 09/28/18 06: 11 Freq: ,13,18 Status: Active Protocol: Created 09/28/18 06:11 System (Rec: 09/28/18 06:11 System [id number]) Intake and Output Start: 09/27/18 21: 00 Freq: Status: Active Protocol: Created 09/27/18 21:00 System (Rec: 09/27/18 21:00 System [id number]) Intake and Output Start: 09/28/18 06: 11 Freq: Q1HR Status: Active Protocol: Created 09/28/18 06:11 System (Rec: 09/28/18 06:11 System [id number]) - Physical Exam General Physical Exam Comment: Poor hygiene/unwashed oil on hands, unkempt blake. Right hallux - mildest erythema and swelling, ulcer is closed. No other ulcers, infections or callouses on feet. Pedal pulses all present. Peripheral neuropathy. Romberg negative. General: No Cyanosis, No Anemia, No Jaundice, No Clubbing Eye Exam: bilateral: PERRLA, Normal Fundi - somewhat obscured by early cataracts , EOMI, Nystagmus - none. No internuclear ophthalmoplegia, Cataract - R>L, Vision Field - intact to confrontation, Retinopathy - I could see no retinopathy , Optic Disk - sharp Skin: Normal: Rash Lungs and Chest: Yes: Chest Expansion Full, Chest Expansion Symetrica, Percussion Note Resonant, Vessicular Breath Sounds. No: Crackles, Wheezes, Respiratory Distress Heart Rate and Rhythm: Regular JVP: Not Elevated Additional Cardiovascular: Yes: Normal Heart Sounds. No: Heart Murmur, Pedal Edema Abdominal Exam: Yes: Soft, Bowel Sounds Present. No: Distention, Abdominal Mass , Hepatomegaly, Abdominal Tenderness, Guarding, Rebound Tenderness - Extremities Cranial Nerves II-XII Intact: Yes Limbs: Normal Power, Normal Tone, Normal Coordination, Normal Sensation Reflexes: Bilateral: Plantar - downgoing - Neuro Orientation: A/O x3 Psychiatric: Normal Speech: Normal Results - Results Lab Results: Laboratory Results - last 24 hr 09/27/18 09/27/18 09/27/18 21:52 21:52 21:52 WBC 16.7 H RBC 5.49 H Hgb 17.6 Hct 51 MCV 92 MCH 32 H MCHC 35 RDW 13 Plt Count 221 MPV 10.2 Neut % (Auto) 71.0 Lymph % (Auto) 22.0 [place] % (Auto) 5.7 Eos % (Auto) 0.2 Baso % (Auto) 1.1 Absolute Neuts (auto) 11.9 H Absolute Lymphs (auto) 3.7 Absolute Monos (auto) 1.0 H Absolute Eos (auto) 0.0 Absolute Basos (auto) 0.2 Absolute Nucleated RBC 0.0 Nucleated RBC % 0.1 INR (Anticoag Therapy) 1.01 APTT 34.4 VBG pH VBG pCO2 VBG pO2 VBG HCO3 VBG O2 Saturation VBG Base Excess Sodium 137 Potassium 3.3 L Chloride 107 Carbon Dioxide 19 L Anion Gap 11 BUN 15 Creatinine 0.85 Est GFR ( Amer) 111.3 Est GFR (Non-Af Amer) 91.9 BUN/Creatinine Ratio 17.6 Glucose 89 Calcium 9.8 Total Bilirubin 0.60 AST 34 ALT 58 H Alkaline Phosphatase 83 Total Protein 7.0 Albumin 4.0 Globulin 3.0 Albumin/Globulin Ratio 1.3 09/27/18 21:58 WBC RBC Hgb Hct MCV MCH MCHC RDW Plt Count MPV Neut % (Auto) Lymph % (Auto) [place] % (Auto) Eos % (Auto) Baso % (Auto) Absolute Neuts (auto) Absolute Lymphs (auto) Absolute Monos (auto) Absolute Eos (auto) Absolute Basos (auto) Absolute Nucleated RBC Nucleated RBC % INR (Anticoag Therapy) APTT VBG pH 7.48 H VBG pCO2 27 L VBG pO2 61.0 H VBG HCO3 23.2 L VBG O2 Saturation 94.2 H VBG Base Excess -2.0 L Sodium Potassium Chloride Carbon Dioxide Anion Gap BUN Creatinine Est GFR ( Amer) Est GFR (Non-Af Amer) BUN/Creatinine Ratio Glucose Calcium Total Bilirubin AST ALT Alkaline Phosphatase Total Protein Albumin Globulin Albumin/Globulin Ratio Radiology Results: Patient Name: ULISES KC Medical Record#: [id number] Ordering Physician: Cha Colby MD Acct.#: [id number] : 1960 Age: 58 Sex: M Location: EMERGENCY DEPARTMENT Exam Date: 09/27/182139 ADM Status: REG ER Order Information: MRI BRAIN W/O Accession Number: [id number] CPT: 91947 ADDENDUM THIS REPORT CONTAINS FINDINGS THAT MAY BE CRITICAL TO PATIENT CARE. The findings were verbally communicated via telephone conference with CHA COLBY at 12:03 AM EDT on 09/28/2018. The findings were acknowledged and understood. To contact [facility] with a general question: Operations Center - [phone] For direct physician to physician contact: Physician Hotline - [phone] [facility] ([facility] Facility ID #[id number]) <Electronically signed by Raz Damian MD in OV>09/28/18 0004 Dictated by: Raz Damian MD Dictated Date/Time:09/28/18 0004 Transcribed Date/Time: Copy to: Cha Colby MD; No Primary Care Phys,NOPCP EXAM: MR Head Without Contrast EXAM DATE/TIME: 09/27/2018 10:26 PM CLINICAL HISTORY: 58 years old, male; Pain; Visual disturbance; Headache not specified; Patient HX: C/O headache and visual changes; Additional info: CVA TECHNIQUE: Imaging protocol: MR of the head without contrast. COMPARISON: CT BRAIN W/O IV CONTRAST 09/27/2018 5:54 PM FINDINGS: Brain: Restricted diffusion is identified within the left cerebellar lobe, consistent with an acute infarct. Additional foci of restricted diffusion are identified within the bilateral occipital lobes, right frontal cortex, and right thalamus, also consistent with acute infarcts. Due to the distribution of ischemic change, embolic disease is considered. FLAIR hyperintense edema is associated with the areas of restricted diffusion. There are scattered additional foci of FLAIR hyperintensity within the cerebral white matter. There is no mass effect or restricted diffusion associated with these foci. In a patient this age, this likely represents chronic small vessel ischemic disease. Posterior to the right cerebellar lobe, an extra-axial T2 hyperintense fluid collection is identified measuring 3.9 x 1.1 x 4.7 cm. This is consistent with an arachnoid cyst or yang cisterna magna variant. Ventricles: There is mild prominence of the ventricles and sulci, compatible with atrophy. [facility] Patient Name:ULISES KC MR:[id number] : 1960 Bones/joints: Unremarkable, as visualized. Soft tissues: Multiple foci of magnetic susceptibility are visualized involving the scalp. Sinuses: Normal as visualized. No acute sinusitis. Mastoid air cells: No mastoid effusion. Orbits: No acute abnormality visualized. Dural sinuses/cerebral veins: There is abnormal signal intensity within the left transverse venous sinus, suggestive of slow flow or thrombosis. IMPRESSION: 1. Restricted diffusion is identified within the left cerebellar lobe, consistent with an acute infarct. Additional foci of restricted diffusion are identified within the bilateral occipital lobes, right frontal cortex, and right thalamus, also consistent with acute infarcts. Due to the distribution of ischemic change, embolic disease is considered. 2. There are scattered additional foci of FLAIR hyperintensity within the cerebral white matter. In a patient this age, this likely represents chronic small vessel ischemic disease. 3. Mild atrophy. 4. There is abnormal signal intensity within the left transverse venous sinus, suggestive of slow flow or thrombosis. This can be further evaluated with MRV. 5. Posterior to the right cerebellar lobe, an extra-axial fluid collection is identified, consistent with an arachnoid cyst or yang cisterna magna variant. To contact [facility] with a general question: [facility] - [phone] For direct physician to physician contact: Physician Hotline - [phone] [facility] ([facility] Facility ID #[id number]) <Electronically signed by Raz Damian MD in OV> 09/27/182353 Dictated By: Raz Damian MD Dictated Date/Time: 09/27/182353 Transcribed Date/Time: Copy to: CC:Cha Colby MD; No Primary Care Phys,NOPCP Imaging - [facility] Imaging - [facility] Imaging - [place] [facility] [address] [address] ph ([phone]) ph ([phone]) ph ([phone]) Patient Name: ULISES KC Medical Record#: [id number] Ordering Physician: Cha Colby MD Acct.#: [id number] : 1960 Age: 58 Sex: M Location: EMERGENCY DEPARTMENT Exam Date: 09/28/1846 ADM Status: REG ER Order Information: CTA HEAD/NECK Accession Number: [id number] CPT: 03905 ADDENDUM THIS REPORT CONTAINS FINDINGS THAT MAY BE CRITICAL TO PATIENT CARE. The findings were verbally communicated via telephone conference with CHA COLBY at 3:17 AM EDT on 09/28/2018. The findings were acknowledged and understood. To contact [facility] with a general question: Operations Center - [phone] For direct physician to physician contact: Physician Hotline - [phone] [facility] ([facility] Facility ID #[id number]) <Electronically signed by Raz Damian MD in OV>09/28/18317 Dictated by: Raz Damian MD Dictated Date/Time:09/28/18317 Transcribed Date/Time: Copy to: Cha Colby MD; No Primary Care Phys,NOPCP EXAM: CT Angiography Head With Contrast EXAM DATE/TIME: 09/28/2018 1:52 AM CLINICAL HISTORY: 58 years old, male; Weakness; Additional info: CVA TECHNIQUE: Imaging protocol: Computed tomographic angiography images of the head with intravenous contrast using CT angiography protocol. Coronal and sagittal reformatted images were created and reviewed. 3D rendering: MIP reconstructed images were created and reviewed. Radiation optimization: All CT scans at this facility use at least one of these dose optimization techniques: automated exposure control; mA and/or kV adjustment per patient size (includes targeted exams where dose is matched to clinical indication); or iterative reconstruction. Contrast material: VISIPAQUE 320;Contrast volume: 80 ml;Contrast route: IV; COMPARISON: CT BRAIN W/O IV CONTRAST 09/27/2018 5:54 PM FINDINGS: Right internal carotid artery: Intracranial segment is patent with no significant stenosis. No aneurysm. Right anterior cerebral artery: No occlusion or significant stenosis. No aneurysm. Right middle cerebral artery: No occlusion or significant stenosis. No aneurysm. This report is only to be considered final once signed by the Provider(s) as displayed in the "<Electronically Signed by >" field (s). Absence of a signature indicates the report is in a draft status and still needs to be finalized. In the event this document was created by someone other than the signing Provider, the individual initiating the document will be listed in the "Entered by:" or "Dictated by:" king. [facility] Patient Name:ULISES KC MR: [id number] : 1960 Right posterior cerebral artery: No occlusion or significant stenosis. No aneurysm. Right vertebral artery: There is a segment of the distal V4 segment of the right vertebral artery with absence of enhancement, consistent with occlusion. Left internal carotid artery: Intracranial segment is patent with no significant stenosis. No aneurysm. Left anterior cerebral artery: No occlusion or significant stenosis. No aneurysm. Left middle cerebral artery: No occlusion or significant stenosis. No aneurysm. Left posterior cerebral artery: No occlusion or significant stenosis. No aneurysm. Left vertebral artery: A dominant left vertebral artery is identified. Basilar artery: No occlusion or significant stenosis. No aneurysm. Dural sinuses/cerebral veins: The left transverse venous sinuses poorly visualized medially. When correlated with the MRI from the same day, thrombosis is considered. IMPRESSION: 1. There is a segment of the distal V4 segment of the right vertebral artery with absence of enhancement, consistent with occlusion. 2. A dominant left vertebral artery is identified. 3. The left transverse venous sinuses poorly visualized medially. When correlated with the MRI from the same day, thrombosis is considered. EXAM: CT Angiography Neck With Contrast EXAM DATE/TIME: 09/28/2018 1:52 AM CLINICAL HISTORY: 58 years old, male; Weakness; Additional info: CVA TECHNIQUE: Imaging protocol: Axial computed tomographic angiography images of the neck with intravenous contrast using CT angiography protocol. Coronal and sagittal reformatted images were created and reviewed. 3D rendering: MIP reconstructed images were created and reviewed. Radiation optimization: All CT scans at this facility use at least one of these dose optimization techniques: automated exposure control; mA and/or kV adjustment per patient size (includes targeted exams where dose is matched to clinical indication); or iterative reconstruction. Contrast material: VISIPAQUE 320;Contrast volume: 80 ml;Contrast route: IV; COMPARISON: CT BRAIN W/O IV CONTRAST 09/27/2018 5:54 PM FINDINGS: VASCULATURE: Right common carotid artery: Artifact limits evaluation of the brachiocephalic artery and proximal right common carotid artery. No significant stenosis or occlusion of the remaining right common carotid artery. Right internal carotid artery: Extracranial segment is patent with no significant stenosis. No dissection or occlusion. Right external carotid artery: No occlusion or significant stenosis. Right vertebral artery: No significant stenosis or occlusion of the extracranial right vertebral artery. Left common carotid artery: Artifact limits evaluation of the proximal left common carotid artery. No significant stenosis or occlusion of the remaining left common carotid artery. This report is only to be considered final once signed by the Provider(s) as displayed in the "<Electronically Signed by >" field (s). Absence of a signature indicates the report is in a draft status and still needs to be finalized. In the event this document was created by someone other than the signing Provider, the individual initiating the document will be listed in the "Entered by:" or "Dictated by:" king. [facility] Patient Name:ULISES KC MR: [id number] : 1960 Left internal carotid artery: Extracranial segment is patent with no significant stenosis. No dissection or occlusion. Left external carotid artery: No occlusion or significant stenosis. Left vertebral artery: A dominant left vertebral artery is visualized. No significant stenosis or occlusion of the left vertebral artery. Subclavian arteries: Artifact limits evaluation of the right subclavian artery. The left subclavian artery is patent. NECK: Bones/joints: Spondylosis is identified within the cervical and upper thoracic spine. Soft tissues: No significant soft tissue swelling. IMPRESSION: 1. No stenosis or occlusion of the extracranial internal carotid arteries bilaterally. 2. A dominant left vertebral artery is visualized. 3. Additional findings described above. COMMENT: Reference per NASCET criteria for degree of stenosis: Mild: less than 50% stenosis. Moderate: 50-69% stenosis. Severe: 70-94% stenosis. Near occlusion: 95-99% stenosis. To contact [facility] with a general question: Operations Center - [phone] For direct physician to physician contact: Physician Hotline - [phone] [facility] ([facility] Facility ID #[id number]) <Electronically signed by Raz Damian MD in OV> 09/28/18299 Dictated By: Raz Damian MD Dictated Date/Time: 09/28/18299 Transcribed Date/Time: Copy to: Patient Name: ULISES KC Medical Record#: [id number] Ordering Physician: Cha Colby MD Acct.#: [id number] : 1960 Age: 58 Sex: M Location: INTENSIVE CARE UNIT Exam Date: 09/27/182138 ADM Status: ADM IN Order Information: CHEST AP OR PORT Accession Number: [id number] CPT: 93403 HISTORY: Picc line COMPARISONS: None relevant available at the time of dictation. VIEWS: 1: frontal AP view of the chest at 10:35 PM FINDINGS: LINES AND TUBES: None. CARDIOMEDIASTINAL SILHOUETTE: The cardiomediastinal silhouette is normal for portable technique. PLEURA: The costophrenic angles are sharp. No pleural abnormalities are noted. LUNG PARENCHYMA: The lungs are clear. ABDOMEN: The upper abdomen is clear. There is no subphrenic gas. BONES AND SOFT TISSUES: No bone or soft tissue abnormalities are noted. IMPRESSION: NO ACTIVE CARDIOPULMONARY DISEASE. NO PICC LINE IS NOTED. R0 Preliminary Imaging Read R0 <Electronically signed by Rusty Gomez MD in OV> 09/28/18800 Dictated By: Rusty Gomez MD Dictated Date/Time: 09/28/18800 Transcribed Date/Time: 09/28/18800 Copy to: CC:Cha Colby MD; Jovany Cooney MD; No Primary Care Phys,NOP Imaging - [facility] Imaging - [facility] Imaging - [facility] [address] 10 [facility] [address] [address] [address] ph [phone]) ph [phone]) ph [phone]) EKG Report: Sinus tachycardia 101 OR 163 QTc 506 Brandon 7. LVH. Long QTc Assessment - Problem List Assessment: Patient Problems Acute headache (Acute) Arterial embolism (Acute) CVA (cerebral vascular accident) (Acute) Cerebrovascular accident (CVA) due to embolism (Acute) On continuous oral anticoagulation (Acute) Osteomyelitis of toe of right foot (Acute) PICC (peripherally inserted central catheter) removal (Acute) Diabetes mellitus with neuropathy (Chronic) History of atrial fibrillation (Chronic) Hypertension, essential (Chronic) Hypertriglyceridemia (Chronic) Left hemiparesis (Chronic) Poor compliance (Chronic) Type 2 diabetes mellitus with hyperglycemia (Chronic) Plan: Acute headache (Acute)Arterial embolism (Acute) PICC (peripherally inserted central catheter) removal (Acute) CVA (cerebral vascular accident) (Acute) Cerebrovascular accident (CVA) due to embolism (Acute) He had x 2 infusions of IV antibiotic via an ectopic PICC line in his left brachial artery. He developed severe headache and some disorientation. The PICC line is removed. He has abnormal MRI scan suggesting acute multi-embolic strokes - but no physical signs. I will review this paradox with neurology/neuro-radiology. I will observe him neurologically and mobilize him On continuous oral anticoagulation (Acute) I will restore this Osteomyelitis of toe of right foot (Acute) I will find out the antibacterial and restore it. He declines another PICC line Diabetes mellitus with neuropathy (Chronic) Type 2 diabetes mellitus with hyperglycemia (Chronic) I will start him on a basal/bolus regimen in the hospital. I will check his A1c History of atrial fibrillation (Chronic) At present in sinus rhythm Hypertension, essential (Chronic) He is markedly hypertensive - I will re- introduce his antihypertensives Hypertriglyceridemia (Chronic) continue current Rx Left hemiparesis (Chronic) from prior CVA Poor compliance (Chronic) Long-term issue I discussed the above with the patient. He agrees with the management plan. He can be transferred to a regular medical bed when it is available
--- NOTE | 2018-09-28 09:15 | PN ---
Date of Service: 09/28/18 Critical Care Services: Patient with hx of KELLY on DOAC. Also, apparently hx of CVA Now, no focal JAILER deficits. No HARRISON's. No visual Complaints. No new neuro deficits. Patient without complaints. states has remote hx of Migraines when much younger. HARRISON's began after insertion of PICC line in artery. Dx'd with OM and had been taking ABX for six weeks at home. Does not know which ABX was taking. "blacked out at home"after taking aBX through PICC line. PICC line now out. Patient sent from [place] for neuro w/u. D/Case with PCP at bedside. Denies IVDA. No Tobacco hx. Unclear if compliant with DOAC Vital Signs: Temp Pulse Resp BP SpO2 FiO2 98.2 F 96 19 162/90 94 09/28/18 06:40 09/28/18 06:40 09/28/18 06:40 09/28/18 06:40 09/28/18 06:40 Physical Exam: Gen: NAD HEENT: EOMI Lungs:cTA b/l Cardiac: RRR Abdomen: +BS's, soft, NTP. No rebound or guarding Extremities: No BHAVYA's. Right toe with remnant fungal infection. no erythema, warm, no discharge from great toe. well healed lesion with good scab formation. good ROM. Neuro: No focal deficits, Motor and sensory 5/5 globally. CN II-XII intact Fluid Balance (Past 24 Hours): I= O= Net Intake & Output 09/26/18 09/27/18 09/28/18 09/29/18 06:59 06:59 06:59 06:59 Weight 230 lb ADLs: Meal Record Start: 09/28/18 06: 11 Freq: 09,13,18 Status: Active Protocol: Created 09/28/18 06:11 System (Rec: 09/28/18 06:11 System [id number]) Intake and Output Start: 09/27/18 21: 00 Freq: Status: Active Protocol: Created 09/27/18 21:00 System (Rec: 09/27/18 21:00 System [id number]) Intake and Output Start: 09/28/18 06: 11 Freq: Q1HR Status: Active Protocol: Created 09/28/18 06:11 System (Rec: 09/28/18 06:11 System [id number]) Labs: Laboratory Results - last 24 hr 09/27/18 09/27/18 09/27/18 21:52 21:52 21:52 WBC 16.7 H RBC 5.49 H Hgb 17.6 Hct 51 MCV 92 MCH 32 H MCHC 35 RDW 13 Plt Count 221 MPV 10.2 Neut % (Auto) 71.0 Lymph % (Auto) 22.0 Shackelford % (Auto) 5.7 Eos % (Auto) 0.2 Baso % (Auto) 1.1 Absolute Neuts (auto) 11.9 H Absolute Lymphs (auto) 3.7 Absolute Monos (auto) 1.0 H Absolute Eos (auto) 0.0 Absolute Basos (auto) 0.2 Absolute Nucleated RBC 0.0 Nucleated RBC % 0.1 INR (Anticoag Therapy) 1.01 APTT 34.4 VBG pH VBG pCO2 VBG pO2 VBG HCO3 VBG O2 Saturation VBG Base Excess Sodium 137 Potassium 3.3 L Chloride 107 Carbon Dioxide 19 L Anion Gap 11 BUN 15 Creatinine 0.85 Est GFR ( Amer) 111.3 Est GFR (Non-Af Amer) 91.9 BUN/Creatinine Ratio 17.6 Glucose 89 Calcium 9.8 Total Bilirubin 0.60 AST 34 ALT 58 H Alkaline Phosphatase 83 Total Protein 7.0 Albumin 4.0 Globulin 3.0 Albumin/Globulin Ratio 1.3 09/27/18 21:58 WBC RBC Hgb Hct MCV MCH MCHC RDW Plt Count MPV Neut % (Auto) Lymph % (Auto) Shackelford % (Auto) Eos % (Auto) Baso % (Auto) Absolute Neuts (auto) Absolute Lymphs (auto) Absolute Monos (auto) Absolute Eos (auto) Absolute Basos (auto) Absolute Nucleated RBC Nucleated RBC % INR (Anticoag Therapy) APTT VBG pH 7.48 H VBG pCO2 27 L VBG pO2 61.0 H VBG HCO3 23.2 L VBG O2 Saturation 94.2 H VBG Base Excess -2.0 L Sodium Potassium Chloride Carbon Dioxide Anion Gap BUN Creatinine Est GFR ( Amer) Est GFR (Non-Af Amer) BUN/Creatinine Ratio Glucose Calcium Total Bilirubin AST ALT Alkaline Phosphatase Total Protein Albumin Globulin Albumin/Globulin Ratio Studies: CT and MRI reviewed Head reviewed Impression: Embolic CVA ? without focal deficits in patient with KELLY on DOAC and with hx of CVA's DM Healed R OM great toe Hypokalemia Plan Neurology consult TTE vs NADER Another MRI pending Continue DOAC. Unclear if patient compliant with medications or had breakthrough embolic CVA? Replenish K Insulin SC would beneift to compare old MRI's or CT scans of head Plan: Critical Care Time: 45
[2018-09-28] MEDS ORDERED: Potassium Chlor TAB* 20 MEQ TAB.ER PO ONE (09:20)
[2018-09-28] MEDS ORDERED: Perflutren Lipid Microsphere* 3 ML VIAL ONE (09:25)
[2018-09-28] MEDS ORDERED: Dextrose 50% Syringe 50 ML* 25 GM/50 ML SYRINGE IV PUSH PRN (09:29)
[2018-09-28] MEDS ORDERED: Dextrose 50% VIAL 50 ml IV PUSH PRN (09:30)
--- NOTE | 2018-09-28 09:35 | HP ---
CC: Dr. Oli Lucero * ADMISSION HISTORY AND PHYSICAL: DATE OF ADMISSION: 09/28/18 PRIMARY CARE PHYSICIAN: Dr. Oli Lucero INFECTIOUS DISEASE: Dr. Dobson. HISTORY OF PRESENT ILLNESS: This is a 58-year-old gentleman with past medical history of diabetes; AFib, on Eliquis; hypertension; recently diagnosed left big toe osteomyelitis, on IV antibiotics via PICC line for the last few months being managed by Dr. Dobson. On Thursday, he had a PICC line changed from his right upper extremity to left upper extremity and ever since the PICC line change, he has been having severe migraine-type headache and felt like his vision was very foggy. He was seen by his home health nurse, who told him that the PICC line appears to be in the artery and suggested him to be evaluated for that. So, he went to [facility], where he gets most of his care primarily and he was told that he has been feeling fuzzy for the last few days, his sugars have been elevated, and his PICC line catheter was bleeding quite a bit initially. He also had some nausea along with his headache, but no vomiting. He otherwise denies any numbness, tingling or weakness. While in the [place] [facility], he had a CT head performed for his severe headache. He had a low suspicion for subarachnoid hemorrhage and meningitis and due to him being on anticoagulation, he had a CT head performed. CT brain was suggestive of a right occipital lobe hypodensity, which could be involving stroke and an MRI was requested. Since the [facility] did not have an MRI capability and [facility] being on reversion, the patient was sent to [facility] for MRI evaluation. Upon arrival to [facility], the patient was noted to be have an ABG, which was suggestive of arterial PICC line. So, this PICC line was safely removed by Dr. Colby and the patient was dressed and after which he had a chest x-ray and an MRI of the brain and hospitalist team was requested for admitting the patient for his acute stroke. PAST MEDICAL HISTORY: As mentioned, 1. History of diabetes. 2. AFib, on anticoagulation. 3. History of diabetic ulcer versus osteomyelitis of the left foot, especially the great toe, on IV antibiotics. 4. History of hypertension. PAST SURGICAL HISTORY: He states that he has had a right hip fracture, repaired with some screws in 2007, but otherwise no other surgical interventions. HOME MEDICATIONS: The patient is currently on, 1. Humalog 15 units subcu a.c. and h.s. 2. Eliquis 5 mg oral daily. 3. Toujeo 90 units subcutaneous twice a day. 4. Metoprolol 25 mg oral daily. 5. Diltiazem 120 mg p.o. b.i.d. 6. Trulicity 1.5 mg p.o. daily. 7. Glipizide 5 mg p.o. b.i.d. ALLERGIES: The patient is documented to have allergies to NIACIN which causes rash. FAMILY HISTORY: Father of stroke. He had 4 strokes in his lifetime and at age 67. Mother at age 82, had history of hypertension and diabetes , but no other coronary event or strokes in the mother. SOCIAL HISTORY: The patient quit smoking in 1983. Prior to that had 4-year history of smoking. Denies any alcohol use. 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 He is , has one child who is also his healthcare proxy. The patient is otherwise full code. REVIEW OF SYSTEMS: A 14-point review of systems did not reveal any new information other than what is stated in the HPI. PHYSICAL EXAMINATION GENERAL: In general, the patient is awake, alert, oriented x3, did not appear to be in any acute respiratory distress. VITAL SIGNS: In the ER, BP was noted to be 138/100, heart rate 99, respiration rate 22, saturating 98% on room air, temperature was documented at 98 degrees Fahrenheit. HEAD AND NECK: Atraumatic, normocephalic. Bilateral pupils were reactive. Oral mucosa was moist. Neck supple. No jugular venous distention. LUNGS: Clear to auscultation bilaterally. No wheezing or rhonchi. HEART: S1, S2. Regular rate and rhythm. ABDOMEN: Soft, nontender, nondistended. EXTREMITIES: No cyanosis, clubbing, or edema. There was some erythema on the left great toe, which was limited to the toe itself. The nail bed was removed on that left great toe. DIAGNOSTIC STUDIES/LAB DATA: CBC was showing minimally elevated white count of 16.7, hemoglobin/hematocrit stable. Platelet count was stable at 221. Coagulation profile which showed INR of 1.01. Blood gas shows pH of 7.48 via the PICC line and oxygen saturation of 94.2%, suggesting this is an arterial bleed. Comprehensive metabolic panel was unremarkable except for a minimally decreased potassium at 3.3 and LFTs within normal limits except for a minimally elevated ALT at 58. MRI of the brain was read as restricted diffusion, is identified within the left cerebellar lobe consistent with acute infarct. Additional foci of restricted diffusion are identified within the bilateral occipital lobe, right frontal cortex and right thalamus, also consistent with acute infarct due to distribution of ischemic change, embolic disease is considered. There is scattered additional foci of FLAIR hyperintensity within the cerebellar white matter in a patient of this age likely represents chronic small vessel ischemic disease, mild atrophy. There is abnormal signal intensity within the left transverse venous sinus suggestive of slow flow or thrombosis. This can be further evaluated with an MRV. Posterior to the right cerebellar lobe an extra axial fluid collection is identified consistent with arachnoid cyst or yang cisterna magna variant. EKG shows sinus tachycardia at 101 beats per minute. There was no old EKG to compare. IMPRESSION: This is a 58-year-old gentleman here due to vague neurological symptoms such as headache and vision changes without any other neurological deficit at this point with an NIH stroke scale of 0, performed both at the [facility] and here. His vision has partially recovered and the patient otherwise was doing well, was able to ambulate, was able to show good speech pattern, but MRI was consistent with multiple infarcts. This could be secondary to the PICC line being in the artery, which was removed. We will consult Neurology in the morning and in the meantime, we will get A1c, lipid panel, echocardiogram and carotid Dopplers along with MRV of the brain to rule out the possibility of left transverse venous sinus thrombosis. ASSESSMENT: 1. Multiple acute strokes likely embolic in nature. Could be secondary to arterial PICC line. We will get neuro checks q.2 hours. Echo, carotids and MRV as mentioned. Further treatment would be based on the neurological evaluation by inhouse neurologist. 2. History of diabetes. Restart home medication. 3. History of left foot possible osteomyelitis. We will try to check with Dr. Lucero regarding his home antibiotics, as the patient is unable to recollect it and we will consider restarting that. 4. History of atrial fibrillation. For now we will hold the Eliquis until Neurology is okay with restarting the Eliquis as the patient does have multiple infarcts and he is at risk of further aggravating or causing any bleeding to those. 5. History of hypertension. Restart home medication. 6. DVT prophylaxis with sequential compression device. [id number]/[facility] #: [id number] MTDD
[2018-09-28] MEDS ORDERED: Insulin LISPRO* 1 UNITS UNIT SUBCUT SCH ×2 (11:30)
[2018-09-28] MEDS ORDERED: Vancomycin per Pharmacy* NOTE FOLLOW UP PRN (11:37)
[2018-09-28] MEDS ORDERED: Vancomycin(*) 1,500 MG in NS 0.9% 250 ML* 250 ML IVPB ONE (12:00)
[2018-09-28] MEDS ORDERED: DAPTOMYCIN IVPB SCH (12:00)
[2018-09-28] MEDS ORDERED: NS 0.9% IVPB SCH (12:00)
[2018-09-28 12:07] LABS: HDL Cholesterol 22.7 mg/dL
--- NOTE | 2018-09-28 12:27 | ECHO ---
*[facility]* [place] [address] Fax #: [phone] Transthoracic Echocardiogram Patient: Kaleb Kc : 1960 Study Date: 09/28/2018 Age: 58 Gender: M HR: 94 bpm Height: 75 in /190.5 cm BSA: 2.37 m^2 Weight: 229.5 lb /104.3 kg BMI: 28.7 kg/m^2 *Certified Phlebotomy Technician: * Nikki Bethea [facility] *Referring Physician: * Jovany Cooney *Reading Physician: * Alvaro Barnard MD Indications: CVA. History: PICC line inserted into artery at another facility. Atrial fibrillation. Cerebrovascular accident. Risk factors: Diabetes mellitus. Conclusions Summary: - Left ventricle: Systolic function is hyperdynamic. The estimated ejection fraction is 60-65%. Wall motion is normal; there are no regional wall motion abnormalities. - Right ventricle: Systolic function is normal. - Atrial septum: A PFO is demonstrated by agitated saline contrast. Positive bubble study. There is a septal aneurysm. - Mitral valve: There is no significant regurgitation. - Aortic valve: There is no evidence of stenosis. - Tricuspid valve: There is no significant regurgitation. - Pericardium, extracardiac: There is no significant pericardial effusion. - Study data: No prior study is available for comparison. Study data: Transthoracic echocardiogram. Procedure: Transthoracic echocardiography was performed. Image quality was adequate. Intravenous Definity , 2 mlswas administered. A bubble study was performed. Complete 2D, spectral Doppler, and color flow Doppler. Location: ICU Patient status: Inpatient. Patient room number: 7. No prior study is available for comparison. Rhythm: Normal sinus rhythm with PVC's. Findings Left ventricle: The cavity size is normal. Wall thickness is mildly increased. Systolic function is hyperdynamic. The estimated ejection fraction is 60-65%. Wall motion is normal; there are no regional wall motion abnormalities. There is no consistent Doppler evidence of clinically significant diastolic dysfunction. Right ventricle: The cavity size is normal. Systolic function is normal. Left atrium: The atrium is normal in size. Right atrium: The atrium is normal in size. Atrial septum: A PFO is demonstrated by agitated saline contrast. Positive bubble study. There is a septal aneurysm. Mitral valve: The leaflets are normal thickness. There is no evidence of stenosis. There is no significant regurgitation. Aortic valve: The leaflets are normal thickness. There is no evidence of stenosis. There is no significant regurgitation. Tricuspid valve: The leaflets are normal thickness. There is no evidence of stenosis. There is no significant regurgitation. Pulmonic valve: Not well visualized. There is no significant regurgitation. Aorta: Aortic root: The aortic root is mildly dilated. Ascending aorta: The ascending aorta is poorly visualized. Aortic arch: The aortic arch is appears normal. Pericardium: There is no significant pericardial effusion. Pulmonary arteries: Not well visualized. Systolic pressure can not be accurately estimated. Systemic veins: Inferior vena cava: The vessel is normal in size. There is (>= 50%) respiratory change in the IVC dimension. Measurements Left ventricle Value Ref Right atrium Value Ref SHARMAINE, LAX (L) 3.6 cm 4.2 - 5.8 SI dim, ES 4.8 cm 3.4 - 5.3 ESD, LAX 3.6 cm 2.5 - 4.0 ML dim, ES, A4C 3.6 cm 2.6 - 4.4 FS, LAX (L) -1 % 25 - 43 Estimated RAP 8 mm Hg --------- PW, ED, LAX (H) 1.3 cm 0.6 - 1.0 EF (L) -3 % 52 - 72 Aortic valve Value Ref E', lat margy, TDI 13.1 cm/sec >=10.0 Margy diam, ED 2.5 cm ---- ----- E/e', lat margy, 3 Peak v, S 1.3 m/sec ------- -- TDI VTI, S 20.2 cm --------- E', med margy, TDI 7.0 cm/sec >=7.0 Mean grad, S 4.3 mm Hg ---- ----- E/e', med margy, 6 Peak grad, S 6.7 mm Hg ------- -- TDI LVOT/AV, VTI ratio 0.82 --------- E', avg, TDI 10.0 cm/sec E/e', avg, TDI 4 <=14 Mitral valve Value Ref Peak E 0.39 m/sec --------- LVOT Value Ref Peak A 0.62 m/sec --------- Peak arash, S 0.9 m/sec Decel time 116 ms --------- VTI, S 16.6 cm Peak E/A ratio 0.63 --------- Peak grad, S 3 mm Hg Mean grad, S 2 mm Hg Pulmonic valve Value Ref Peak v, S 0.55 m/sec --------- Ventricular septum Value Ref IVS, ED (H) 1.2 cm 0.6 - 1.0 Aortic root Value Ref Root diam 3.7 cm <4.4 Right ventricle Value Ref SHARMAINE, LAX 3.2 cm Aortic arch Value Ref SHARMAINE major ax, (L) 2.9 cm 5.9 - 8.3 Arch diam 2.5 cm --------- A4C Inferior vena cava Value Ref Left atrium Value Ref Diam 1.6 cm --------- AP dim, ES 3.00 cm 3.00 - 4.00 ML dim, A4C 3.5 cm SI dim, A4C 5.4 cm Vol/bsa, ES, 2-p 18 ml/m^2 16 - 34 Legend: (L) and (H) arnulfo values outside specified reference range. Prepared and electronically signed by Alvaro Barnard MD 09/28/2018 12:27
[2018-09-28] MEDS: Insulin GLARGINE(*) 1 UNITS UNIT SUBCUT SCH ×2 (13:38→22:22)
[2018-09-28] MEDS: Acetaminophen TAB* 325 MG PO PRN (13:42)
[2018-09-28] MEDS ORDERED: Insulin LISPRO* 1 UNITS UNIT SUBCUT ONE ×2 (14:00→17:00)
--- NOTE | 2018-09-28 17:06 | CONS ---
CONSULTATION REPORT: DATE OF CONSULT: 09/28/18 PATIENT OF: Dr. Lucero. HISTORY OF PRESENT ILLNESS: This is a 58-year-old right-handed man who I am asked to evaluate for abnormal MRI scan. He has a history of atrial fibrillation and in May, he was up at [facility] for what he describes as a left footdrop and they said it was not a stroke, but told him to continue the Eliquis indefinitely. From what is described, I wonder whether he had a peroneal neuropathy then, but an abnormal MRI scan. In any event, he was having IV antibiotics through PICC line in the last few months' time and on Thursday, he had a PICC line change which may have became an arterial PICC line. He had a severe migraine type of headache and very foggy vision. He notes that on both sides the vision closed and he can only see centrally and had central sparing. This lasted for a couple days' time. He has had no change in his gait or clumsiness that he detects himself. He was at [place] and he was transferred here for an MRI scan evaluation. PAST MEDICAL HISTORY: He has a history of diabetes; atrial fibrillation, on anticoagulation; history of diabetic ulcer versus osteomyelitis, on IV antibiotics; history of hypertension. PAST SURGICAL HISTORY: He is status post a right hip fracture in 2007, but no other surgeries. MEDICATIONS: Include: 1. Humalog 15 units subcu with meals and at bedtime. 2. He is on Toujeo 90 units subcu twice a day. 3. Metoprolol 25 mg daily. 4. Diltiazem 120 b.i.d. 5. Trulicity 1.5 p.o. daily. 6. Glipizide 5 mg daily. ALLERGIES: He is allergic to NIACIN, which causes a rash. FAMILY HISTORY: His father of a stroke. The father had 4 strokes in his lifetime. Mom at age 82 and had hypertension, diabetes. SOCIAL HISTORY: He quit smoking in 1983 and has a 4-year history of smoking. He does not use alcohol and he has had a 34-year history of marijuana smoking, but is clean for 6 years' time. REVIEW OF SYSTEMS: Negative in all 14 spheres other than HPI. PHYSICAL EXAM: Blood pressure 154/98, pulse 80, respirations 12, temperature 97.8. He is alert and oriented with normal speech and comprehension. He says that he has little bit of fuzzy vision all over. He could see fingers in all visual king and there was no specific area of blurring. Cranial nerves II through XII were intact including facies. Motor exam revealed normal tone and strength other than left footdrop, which is old. His gait reflected his left footdrop. [id number] was slightly clumsy on the left side as was rapid alternating movement. He is right- handed. He is not sure if this is a change , but did think it was a little bit clumsy. Sensation is decreased in glove stocking distribution to touch. Reflexes were 1 and equal. Toes were equivocal to downgoing. Chest: Clear. Cardiovascular: Irregular rate and rhythm. Abdomen is soft with positive bowel sounds. DIAGNOSTIC STUDIES/LAB DATA: I reviewed his MRI scan, which showed acute to subacute since it was seen on FLAIR as well as DWI bioccipital stroke, left cerebellar wedge-shaped stroke and a right thalamic stroke. I did not appreciate the small right frontal stroke that the radiologist read as acute. He also had numerous white matter lesions, some of them in the subcortical white matter junction. His CTA and MRA showed a right vertebral occlusion. There was some slow flow coming from the neck. He had an echo that showed a septal aneurysm and a PFO. His LDL was normal. White count 16.7, normal CBC otherwise. INR and PTT normal. Blood gas was venous. His LDL was 42. He had normal CMP other than potassium of 3.3, bicarb of 19, ALT 58. IMPRESSION AND PLAN: I discussed with Kaleb, his son and Dr. Lucero that he has had subacute stroke, which may have occurred on Thursday with bioccipital stroke with new onset of visual symptoms on both sides and this could go along with his bioccipital stroke. He has a small cerebellar stroke and I think the clumsiness on the left side which is mild may relate to this, it is harder to be sure of. The etiology of the stroke may well be cardiac given his atrial fibrillation and also his patent foramen ovale. The bulk of the stroke other than if there is right frontal would come from posterior circulation, so it is possible that the right vertebral occlusion was instead the culprit and I think that this is less likely. It is possible but unclear from the information I have that the arterial line may have played a role here. The other thing that needs to be checked which was discussed is that he has difference in pedal pulses according to the nurse and it is possible that he could have a deep venous thrombosis that could have gone through the patent foramen ovale and caused the stroke. We would not change what we did right now in terms of we would continue the Eliquis, but if he had repeated deep venous thromboses on Eliquis, especially given his patent foramen ovale, we would consider closing it. He has been on Eliquis and he is only 5 days status post stroke, but he has tolerated the Eliquis without any further bleeding. If this is from the atrial fibrillation, it would have been multiple emboli and it would be riskier to stop the Eliquis at this point than to continue it. Dr. Lay is assuming care of the neurological service beginning 5 o'clock tonight. Thank you for sharing his case. [id number]/[facility] #: [id number] MELISA
[2018-09-28] MEDS: Insulin LISPRO* 1 UNITS UNIT SUBCUT SCH ×2 (17:17→22:23)
[2018-09-28] MEDS: Vancomycin(*) 1,000 MG in NS 0.9% 250 ML* 250 ML IVPB SCH ×2 (17:23→23:09)
[2018-09-28] MEDS: Apixaban* 5 MG TAB PO SCH (22:21)
[2018-09-28] MEDS: Metoprolol Tartrate TAB* 25 MG PO SCH (22:22)
[2018-09-29] MEDS: Vancomycin(*) 1,000 MG in NS 0.9% 250 ML* 250 ML IVPB SCH ×3 (06:11→19:47)
--- NOTE | 2018-09-29 08:12 | PN ---
Subjective Length of Stay: 1 Days Interval History: No problems overnight. He feels that his headache is better, notes "0.5/10." No new neurologic deficits overnight. The patient has not walked much but feels that he could. No acute cardiac issues overnight. He feels that his clumsiness is better on the left side. Tele: Some bigeminy. RRR Studies: CXR: no acute processes. Brain MRI: --1. Restricted diffusion is identified within the left cerebellar lobe,. consistent with an acute infarct. Additional foci of restricted diffusion are. identified within the bilateral occipital lobes, right frontal cortex, and. right thalamus, also consistent with acute infarcts. Due to the distribution of. ischemic change, embolic disease is considered. --2. There are scattered additional foci of FLAIR hyperintensity within the. cerebral white matter. In a patient this age, this likely represents chronic. small vessel ischemic disease. --3. Mild atrophy. --4. There is abnormal signal intensity within the left transverse venous sinus , suggestive of slow flow or thrombosis. This can be further evaluated with MRV. --5. Posterior to the right cerebellar lobe, an extra-axial fluid collection is. identified, consistent with an arachnoid cyst or yang cisterna magna variant. MRV: Slow flow in left laroxhaaqq-zeivuhv-oxtecxy venous system, no clot appreciated Head CTA: Impression: 1. There is a segment of the distal V4 segment of the right VA with anbsence of enhancement consistent with occlusion 2. Dominant left vertebral arter is identified 3. Left transverse sinuses poorly visualized medially. When correlated with the MRI from the same day, thrombosis is considered. Neck CTA: Impression: 1. No stenosis or occlusion of the extracranial ICA bilaterally 2. Dominant left VA visualized Carotid U/S: 1. 1-49% stenosis origin of ICA bilaterally 2. Bilateral VA flow --1. No stenosis or occlusion of the extracranial internal carotid arteries. bilaterally. --2. A dominant left vertebral artery is visualized. --3. Additional findings described above. Dr. Guillen, neurology, was contacted who stated that the pt needed a head and neck CTA. TTE: Summary: --Left ventricle: EF 60-65%. Wall motion normal. --Right ventricle systolic function is normal --Atrial septum: A PFO is demonstrated by agitated saline contrast. Possible bubble study. Septal aneurysm --No significnat valvular issues LE Dopplers: Negative bilaterally for DVT Objective Active Medications: Acetaminophen (Tylenol Tab*) 650 mg PO Q4H PRN PRN Reason: PAIN - MILD Last Admin: 09/28/18 13:42 Dose: 650 mg Apixaban (Eliquis*) 5 mg PO BID [facility] Last Admin: 09/28/18 22:21 Dose: 5 mg Dextrose (Dextrose 50% Vial 50 Ml*) 25 ml IV PUSH .FOR FS < 60 - SS PRN PRN Reason: FS < 60 Diltiazem HCl (Cardizem Tab*) 120 mg PO BID [facility] Last Admin: 09/28/18 22:21 Dose: 120 mg Vancomycin HCl 1,000 mg/ (Sodium Chloride) 250 mls @ 166.667 mls/hr IVPB Q6H [facility] Last Admin: 09/29/18 06:11 Dose: 166.667 mls/hr Insulin Glargine (Lantus(*)) 60 units SUBCUT BID [facility] Last Admin: 09/28/18 22:22 Dose: 60 units Insulin Human Lispro (Humalog*) 0 units SUBCUT ACHS [facility]; Protocol Last Admin: 09/28/18 22:23 Dose: 9 units Metoprolol Tartrate (Lopressor Tab*) 25 mg PO BID [facility] Last Admin: 09/28/18 22:22 Dose: 25 mg Pharmacy Consult (Vancomycin Per Pharmacy*) 1 note FOLLOW UP . PRN PRN Reason: PER PROTOCOL Pharmacy Profile Note (Vancomycin Trough Check) 1 note FOLLOW UP ONCE ONE Stop: 09/30/18 05:31 Vital Signs 09/28/18 09/28/18 09/28/18 08:15 08:32 09:00 Temperature Pulse Rate 91 102 97 Respiratory 20 21 19 Rate Blood Pressure 150/106 137/106 176/114 (mmHg) O2 Sat by Pulse 94 92 94 Oximetry 09/28/18 09/28/18 09/28/18 09:02 09:15 09:30 Temperature Pulse Rate 98 92 91 Respiratory 20 25 21 Rate Blood Pressure 159/111 162/110 (mmHg) O2 Sat by Pulse 93 93 94 Oximetry 09/28/18 09/28/18 09/28/18 09:45 09:55 10:00 Temperature Pulse Rate 103 94 78 Respiratory 22 19 23 Rate Blood Pressure 139/110 139/110 157/114 (mmHg) O2 Sat by Pulse 94 94 93 Oximetry 09/28/18 09/28/18 09/28/18 10:01 11:00 11:18 Temperature Pulse Rate 100 Respiratory 35 20 31 Rate Blood Pressure 150/97 (mmHg) O2 Sat by Pulse 93 Oximetry 09/28/18 09/28/18 09/28/18 12:00 12:01 12:02 Temperature Pulse Rate 80 85 79 Respiratory 20 13 22 Rate Blood Pressure 148/136 154/98 (mmHg) O2 Sat by Pulse 95 93 96 Oximetry 09/28/18 09/28/18 09/28/18 13:00 14:00 15:00 Temperature Pulse Rate 93 77 95 Respiratory 23 22 28 Rate Blood Pressure 164/110 126/83 (mmHg) O2 Sat by Pulse 95 94 94 Oximetry 09/28/18 09/28/18 09/28/18 16:00 16:01 16:06 Temperature 98.9 F Pulse Rate 95 92 Respiratory 19 22 Rate Blood Pressure 158/116 (mmHg) O2 Sat by Pulse 96 96 Oximetry 09/28/18 09/28/18 09/28/18 17:01 18:01 19:07 Temperature 98.2 F Pulse Rate 76 74 98 Respiratory 20 25 16 Rate Blood Pressure 147/95 (mmHg) O2 Sat by Pulse 96 95 98 Oximetry 09/28/18 09/28/18 09/29/18 20:00 23:37 03:53 Temperature 98.7 F 98.7 F Pulse Rate 82 80 Respiratory 16 20 16 Rate Blood Pressure 132/84 141/88 (mmHg) O2 Sat by Pulse 97 95 Oximetry Intake and Output Last 24 Hours 09/27/18 09/28/18 09/29/18 09/30/18 06:59 06:59 06:59 06:59 Intake Total 1260 Output Total 0 Balance 1260 Weight 230 lb 213 lb 6.519 oz Intake: IV Fluids 126 ABX - VANCOMYCIN 12 NS (0.9%) 114 IVPB 654 ABX - VANCOMYCIN 654 Oral 480 Output: Urine 0 Other: Estimated Void Medium Oxygen Devices in Use Now: None Neurology Exam: General: Disheveled. Well-developed HEENT: Normocephalic/atraumatic, sclera anicteric, mucous membranes moist Neck: Supple. No bruits Chest: Clear to auscultation bilaterally Cardiovascular: Regular rate and rhythm without murmurs, rubs, gallops Abdomen: Soft, non-tender/non-distended Extremities: No clubbing, cyanosis, or edema. Loss of hair on the legs with some venous changes Neurological Findings: Awake, alert, and oriented to person, place, and time. Speech: fluent without dysarthria, repetition intact Cranial Nerve: PERRL, EOM intact, VFF(no peripheral deficits), no nystagmus, face symmetric bilaterally, facial sensation intact, hearing intact to finger rub bilaterally, palate elevates symmetrically, tongue midline Motor: 5/5 throughout, proximal and distal extremities x4 tone/bulk normal, no drift Sensation: Loss of LT/PP/Vib in the feet to ankles bilaterally Deep Tendon Reflex: Trace-none throughout, symmetric Finger to nose, heel to davey, rapid alternating movements intact without ataxia. Mild intention tremors bilaterally. No resting tremor Result Diagrams: 09/27/18 21:52 09/27/18 21:52 Microbiology and Other Data: Microbiology 09/29/18 03:45 Nasal Screen MRSA (PCR) - Final Nasal Mrsa Not Detected Diagnostic Imaging: CXR: no acute processes. Brain MRI: --1. Restricted diffusion is identified within the left cerebellar lobe,. consistent with an acute infarct. Additional foci of restricted diffusion are. identified within the bilateral occipital lobes, right frontal cortex, and. right thalamus, also consistent with acute infarcts. Due to the distribution of. ischemic change, embolic disease is considered. --2. There are scattered additional foci of FLAIR hyperintensity within the. cerebral white matter. In a patient this age, this likely represents chronic. small vessel ischemic disease. --3. Mild atrophy. --4. There is abnormal signal intensity within the left transverse venous sinus , suggestive of slow flow or thrombosis. This can be further evaluated with MRV. --5. Posterior to the right cerebellar lobe, an extra-axial fluid collection is. identified, consistent with an arachnoid cyst or yang cisterna magna variant. MRV: Slow flow in left ilicjpudkz-zwrfxwp-emskznk venous system, no clot appreciated Head CTA: Impression: 1. There is a segment of the distal V4 segment of the right VA with anbsence of enhancement consistent with occlusion 2. Dominant left vertebral arter is identified 3. Left transverse sinuses poorly visualized medially. When correlated with the MRI from the same day, thrombosis is considered. Neck CTA: Impression: 1. No stenosis or occlusion of the extracranial ICA bilaterally 2. Dominant left VA visualized Carotid U/S: 1. 1-49% stenosis origin of ICA bilaterally 2. Bilateral VA flow --1. No stenosis or occlusion of the extracranial internal carotid arteries. bilaterally. --2. A dominant left vertebral artery is visualized. --3. Additional findings described above. Dr. Guillen, neurology, was contacted who stated that the pt needed a head and neck CTA. TTE: Summary: --Left ventricle: EF 60-65%. Wall motion normal. --Right ventricle systolic function is normal --Atrial septum: A PFO is demonstrated by agitated saline contrast. Possible bubble study. Septal aneurysm --No significnat valvular issues LE Dopplers: Negative bilaterally for DVT Assessment/Plan 58 year old gentleman with a history of Diabetes, poorly controlled with diabetic foot ulcer vs. osteo being treated with IV Daptomycin, history of A.fib on Eliquis with possible compliance issues, may have missed several days last week, presents with a history of severe headache with vision changes, possibly some clumsiness on the left side, vision changes which began last Thursday, MRI findings as noted in the HPI with evidence of bi-occipital stroke, left cerebellar stroke, right frontal cortex and right thalamus concerning for embolic stroke. MRI also showed possible left transverse venous sinus slow flow vs. obstruction, MRV shows slow flow but notes no obstruction. TTE showed evidence of PFO with atrial septal aneurysm. LE Dopplers negative. The etiology of the patient's stroke(s) is broad but includes: 1. Embolic from cardiac source given history of A.fib on Eliquis. He may have been non-compliant. 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 --Continue Eliquis, now over 5 days out, chance of hemorrhagic conversion is low at this point. 2. Thomboembolic: possible acute thrombosis of the right vertebral with embolus. It is unclear if VA is acute or chronic --This would not explain right frontal/thalamic strokes 3. PICC line: with PFO, a thrombus around PICC line is possible with paradoxical embolus vs. intra-arterial PICC with thrombus 4. The possibility of intra-arterial PICC exists, could have been acute thrombus on the PICC line, air-embolus vs. some reaction to Dapto (vasospasm) or medication embolus 5. LE DVT could have been paradoxical source, although Dopps negative. 6. Possible vasculitis, although low suspicion: will send labs 7. Acute thromboembolic stroke distal to VA stenosis (basilar artery). Impossible to know if VA is acutely or chronically occluded. --Would not explain right frontal/thalamic stroke Plan: Given the location of the embolic strokes in multiple vascular distributions, cardioembolic or paradoxical embolic source is favored. --Check labs to rule out vasculitis and/or other causes of stroke. --I would continue his Eliquis at this point now 5+ days out, I think the risk of hemorrhagic conversion is low and the benefits are high given history of A.fib. Given the risks of bleeding, I think it is ok to hold on ASA for now in the light of no severe arterial stenosis/plaques. --Continue tight DM and Blood pressure control. LDL cholesterol 42. Given history of possible non-compliance, I think it is ok to hold statin and simplify regimen. --I spoke with radiologist and I am going to check a CT of the chest with contrast to look for more proximal causes of slow venous flow, especially in light of prior venous PICC.
[2018-09-29] MEDS: Apixaban* 5 MG TAB PO SCH ×2 (08:24→20:49)
[2018-09-29] MEDS: Insulin GLARGINE(*) 1 UNITS UNIT SUBCUT SCH ×2 (08:24→20:50)
[2018-09-29] MEDS: Metoprolol Tartrate TAB* 25 MG PO SCH ×2 (08:26→20:49)
--- NOTE | 2018-09-29 08:26 | PN ---
Subjective - Subjective Reason for Note: Progress Note History: He is feeling better today. He has no headache. His vision continues to have some abnormalities - but he is unable to explain this clearly. He can read normally. He has no other new symptoms. He is hyperglycemic. Active Problems: Active Problems Acute headache (Acute) R51 Arterial embolism (Acute) I74.9 CVA (cerebral vascular accident) (Acute) I63.9 Cerebrovascular accident (CVA) due to embolism (Acute) I63.9 Left hallux osteomyelitis (Acute) M86.9 On continuous oral anticoagulation (Acute) Z79.01 PICC (peripherally inserted central catheter) removal (Acute) Z45.2 Diabetes mellitus with neuropathy (Chronic) E11.40 History of atrial fibrillation (Chronic) Z86.79 Hypertension, essential (Chronic) I10 Hypertriglyceridemia (Chronic) E78.1 Left hemiparesis (Chronic) G81.94 Poor compliance (Chronic) Z91.19 Type 2 diabetes mellitus with hyperglycemia (Chronic) E11.65 Current Medications: Current Medications Acetaminophen (Tylenol Tab*) 650 mg PO Q4H PRN PRN Reason: PAIN - MILD Last Admin: 09/28/18 13:42 Dose: 650 mg Apixaban (Eliquis*) 5 mg PO BID [facility] Last Admin: 09/28/18 22:21 Dose: 5 mg Dextrose (Dextrose 50% Vial 50 Ml*) 25 ml IV PUSH .FOR FS < 60 - SS PRN PRN Reason: FS < 60 Diltiazem HCl (Cardizem Tab*) 120 mg PO BID [facility] Last Admin: 09/28/18 22:21 Dose: 120 mg Vancomycin HCl 1,000 mg/ (Sodium Chloride) 250 mls @ 166.667 mls/hr IVPB Q6H [facility] Last Admin: 09/29/18 06:11 Dose: 166.667 mls/hr Insulin Glargine (Lantus(*)) 60 units SUBCUT BID [facility] Last Admin: 09/28/18 22:22 Dose: 60 units Insulin Human Lispro (Humalog*) 0 units SUBCUT ACHS [facility]; Protocol Last Admin: 09/28/18 22:23 Dose: 9 units Metoprolol Tartrate (Lopressor Tab*) 25 mg PO BID [facility] Last Admin: 09/28/18 22:22 Dose: 25 mg Pharmacy Consult (Vancomycin Per Pharmacy*) 1 note FOLLOW UP . PRN PRN Reason: PER PROTOCOL Pharmacy Profile Note (Vancomycin Trough Check) 1 note FOLLOW UP ONCE ONE Stop: 09/30/18 05:31 - Review of Systems Pulmonary: Negative: Cough, Sputum, Respiratory Distress, Shortness of Breath Cardiology: Negative: Chest Pain, Palpitations Gastroenterology: Negative: Abdominal Pain, Nausea, Vomiting, Change in Bowel Habits Genital - Urinary: Negative: Dysuria Neurology: Positive: Migraines, Change in Vision, Hx of Stroke\TIA Negative: Headache, Diplopia, Dizziness, Unexplained Weakness Home Medications: Home Medications Medication Instructions Recorded Confirmed Type Apixaban* [Eliquis*] 5 mg PO DAILY 09/28/18 09/28/18 History Humalog 15 units .ROUTE ACHS 09/28/18 09/28/18 History Metoprolol Tartrate TAB* 25 mg PO DAILY 09/28/18 09/28/18 History Toujeo Solostar Pen (NF) 90 units .ROUTE DAILY 09/28/18 09/28/18 History Trulicity 1.5 mg PO DAILY 09/28/18 09/28/18 History dilTIAZem HCl [Diltiazem HCl] 120 mg PO BID 09/28/18 09/28/18 History glipiZIDE [Glipizide] 5 mg PO BID 09/28/18 09/28/18 History Allergies: Allergies Allergy/AdvReac Type Severity Reaction Status Date / Time niacin Allergy Rash Verified 09/27/18 21:34 Objective - Vital Signs Vital Signs: Vital Signs 09/28/18 09/28/18 09/28/18 08:32 09:00 09:02 Temperature Pulse Rate 102 97 98 Respiratory 21 19 20 Rate Blood Pressure 137/106 176/114 (mmHg) O2 Sat by Pulse 92 94 93 Oximetry 09/28/18 09/28/18 09/28/18 09:15 09:30 09:45 Temperature Pulse Rate 92 91 103 Respiratory 25 21 22 Rate Blood Pressure 159/111 162/110 139/110 (mmHg) O2 Sat by Pulse 93 94 94 Oximetry 09/28/18 09/28/18 09/28/18 09:55 10:00 10:01 Temperature Pulse Rate 94 78 100 Respiratory 19 23 35 Rate Blood Pressure 139/110 157/114 (mmHg) O2 Sat by Pulse 94 93 93 Oximetry 09/28/18 09/28/18 09/28/18 11:00 11:18 12:00 Temperature Pulse Rate 80 Respiratory 20 31 20 Rate Blood Pressure 150/97 (mmHg) O2 Sat by Pulse 95 Oximetry 09/28/18 09/28/18 09/28/18 12:01 12:02 13:00 Temperature Pulse Rate 85 79 93 Respiratory 13 22 23 Rate Blood Pressure 148/136 154/98 164/110 (mmHg) O2 Sat by Pulse 93 96 95 Oximetry 09/28/18 09/28/18 09/28/18 14:00 15:00 16:00 Temperature 98.9 F Pulse Rate 77 95 Respiratory 22 28 Rate Blood Pressure 126/83 (mmHg) O2 Sat by Pulse 94 94 Oximetry 09/28/18 09/28/18 09/28/18 16:01 16:06 17:01 Temperature Pulse Rate 95 92 76 Respiratory 19 22 20 Rate Blood Pressure 158/116 (mmHg) O2 Sat by Pulse 96 96 96 Oximetry 09/28/18 09/28/18 09/28/18 18:01 19:07 20:00 Temperature 98.2 F Pulse Rate 74 98 Respiratory 25 16 16 Rate Blood Pressure 147/95 (mmHg) O2 Sat by Pulse 95 98 Oximetry 09/28/18 09/29/18 23:37 03:53 Temperature 98.7 F 98.7 F Pulse Rate 82 80 Respiratory 20 16 Rate Blood Pressure 132/84 141/88 (mmHg) O2 Sat by Pulse 97 95 Oximetry - Intake and Output Intake and Output: Intake & Output 09/26/18 09/27/18 09/28/18 09/29/18 11:59 11:59 11:59 11:59 Intake Total 1260 Output Total 0 0 Balance 0 1260 Weight 213 lb 6.519 oz Intake: IV Fluids 126 ABX - VANCOMYCIN 12 NS (0.9%) 114 IVPB 654 ABX - VANCOMYCIN 654 Oral 480 Output: Urine 0 0 Other: Estimated Void Medium Medium ADLs: Meal Record Start: 09/28/18 06: 11 Freq: ,, Status: Inactive Protocol: Created 09/28/18 06:11 System (Rec: 09/28/18 06:11 System ICU-C25) Document 09/28/18 13:00 [id number] (Rec: 09/28/18 14:03 [id number] ICU-C12) Document 09/28/18 18:00 [id number] (Rec: 09/28/18 19:00 [id number] ICU-C12) ADLs: Meal Record Start: 09/28/18 20: 15 Freq: Status: Active Protocol: Created 09/28/18 20:15 [id number] (Rec: 09/28/18 20:15 [id number] TELE-C09) Document 09/28/18 21:59 [id number] (Rec: 09/28/18 22:01 [id number] TELE-C09) Intake and Output Start: 09/27/18 21: 00 Freq: Status: Active Protocol: Created 09/27/18 21:00 System (Rec: 09/27/18 21:00 System [id number]) Document 09/29/18 05:55 [id number] (Rec: 09/29/18 05:55 [id number] TELE-C05) Intake and Output Start: 09/28/18 06: 11 Freq: 06,14,2200 Status: Inactive Protocol: Created 09/28/18 06:11 System (Rec: 09/28/18 06:11 System ICU-C25) Document 09/28/18 07:00 [id number] (Rec: 09/28/18 13:59 [id number] ICU-C12) Document 09/28/18 08:00 [id number] (Rec: 09/28/18 13:59 [id number] ICU-C12) Document 09/28/18 09:00 [id number] (Rec: 09/28/18 13:59 [id number] ICU-C12) Document 09/28/18 10:00 [id number] (Rec: 09/28/18 13:59 [id number] ICU-C12) Document 09/28/18 11:00 [id number] (Rec: 09/28/18 13:59 [id number] ICU-C12) Document 09/28/18 12:00 [id number] (Rec: 09/28/18 14:00 [id number] ICU-C12) Document 09/28/18 13:00 [id number] (Rec: 09/28/18 14:00 [id number] ICU-C12) Document 09/28/18 13:59 [id number] (Rec: 09/28/18 14:00 [id number] ICU-C12) - Physical Exam General Physical Exam Comment: Warm and well perfused - in no acute distress. Left hallux mild swelling and redness, no cellulitis. General: No Cyanosis, No Anemia, No Jaundice, No Clubbing Lungs and Chest: Yes: Chest Expansion Full, Chest Expansion Symetrica, Percussion Note Resonant, Vessicular Breath Sounds. No: Crackles, Wheezes Heart Rate and Rhythm: Regular Additional Cardiovascular: Yes: Normal Heart Sounds. No: Heart Murmur, Pedal Edema Abdominal Exam: Yes: Soft, Bowel Sounds Present. No: Distention, Hepatomegaly, Abdominal Tenderness Results - Results Lab Results: Laboratory Results - last 24 hr 09/28/18 09/28/18 09/28/18 11:21 11:32 11:37 POC Glucose (mg/dL) > 444 H* > 444 H* Glucose Meter Confirm Hemoglobin A1c C-Reactive Protein Triglycerides 293 Cholesterol 123 LDL Cholesterol 42 HDL Cholesterol 22.7 09/28/18 09/28/18 09/28/18 11:42 14:54 15:07 POC Glucose (mg/dL) > 444 H* Glucose Meter Confirm 453 H 552 H* Hemoglobin A1c C-Reactive Protein Triglycerides Cholesterol LDL Cholesterol HDL Cholesterol 09/28/18 09/28/18 09/28/18 15:07 17:28 22:08 POC Glucose (mg/dL) > 444 H* 341 H 252 H Glucose Meter Confirm Hemoglobin A1c C-Reactive Protein Triglycerides Cholesterol LDL Cholesterol HDL Cholesterol 09/29/18 09/29/18 09/29/18 05:33 05:33 07:50 POC Glucose (mg/dL) 186 H Glucose Meter Confirm Hemoglobin A1c 9.8 H C-Reactive Protein 3.09 Triglycerides Cholesterol LDL Cholesterol HDL Cholesterol Radiology Results: Patient Name: ULISES MCCAIN Medical Record#: [id number] Ordering Physician: Oli Lucero MD Acct.#: [id number] : 1960 Age: 58 Sex: M Location: [address] [place] [address]/TELEMETRY Exam Date: 09/28/181843 ADM Status: ADM IN Order Information: VL LOWER EXT VEINS BILATERAL Accession Number: [id number] CPT: 35632 EXAM: US Duplex Bilateral Lower Extremity Veins EXAM DATE/TIME: 09/28/2018 8:40 PM CLINICAL HISTORY: 58 years old, male; Other: TIA, HTN, diabetic; Additional info: R/O dvt TECHNIQUE: Imaging protocol: Real-time duplex ultrasound of the Bilateral Lower Extremities with 2-D coronado scale, color Doppler flow and spectral waveform analysis with image documentation. Complete exam focused on the bilateral lower extremity veins. COMPARISON: No relevant prior studies available. FINDINGS: Right deep veins: Unremarkable. The common femoral, femoral, proximal profunda femoral and popliteal veins are patent without thrombus. Normal Doppler waveforms. Normal compressibility and/or augmentation response. The posterior tibial and peroneal veins are also patent. Right superficial veins: Saphenofemoral junction is patent without thrombus. Left deep veins: Unremarkable. The common femoral, femoral, proximal profunda femoral and popliteal veins are patent without thrombus. Normal Doppler waveforms. Normal compressibility and/or augmentation response. The posterior tibial and peroneal veins are also patent. Left superficial veins: Saphenofemoral junction is patent without thrombus. Soft tissues: Unremarkable. No popliteal cyst. IMPRESSION: No evidence of left or right lower extremity DVT. To contact [facility] with a general question: [facility] - [phone] For direct physician to physician contact: Physician Hotline - [phone] [facility] ([facility] Facility ID #[id number]) <Electronically signed by Nikki Morel MD in [place]> 09/28/182150 Dictated By: Nikki Morel MD Dictated Date/Time: 09/28/182150 Transcribed Date/Time: Patient Name: ULISES MCCAIN Medical Record#: [id number] Ordering Physician: Jovany Cooney MD Acct.#: [id number] : 1960 Age: 58 Sex: M Location: [facility] Exam Date: 09/28/18 0600 ADM Status: ADM IN Order Information: VL CAROTID BILATERAL Accession Number: [id number] CPT: 06246 INDICATION: Recent cardioembolic pattern of supratentorial infratentorial infarcts. COMPARISON: September 27, [address], head and neck CTA and brain MRI TECHNIQUE: Multiple grayscale, color and Doppler tracings of the common, internal and external carotid and vertebral arteries were obtained. Stenosis estimations reflect velocity criteria that it been correlated to angiographic stenosis calculations based on the distal internal carotid diameter. RIGHT CAROTID: There is minimal if atherosclerotic plaque near the common carotid artery bifurcation. The peak systolic velocity in the proximal right internal carotid artery is 59 cm/s and the maximum end-diastolic velocity is 72 cm/s. The peak systolic velocity in the distal right common carotid artery is 70 cm/s and the maximum end-diastolic velocity is 24 cm /s. The internal to common carotid artery ratio is 0.9. This would be consistent with a 1-49% stenosis. LEFT CAROTID: There is minimal atherosclerotic plaque near the common carotid artery bifurcation. The peak systolic velocity in the proximal left internal carotid artery is 69 cm/s and the maximum end-diastolic velocity is 34 cm/s. The peak systolic velocity in the distal left common carotid artery is 73 cm/s and the maximum end-diastolic velocity is 23 cm/s. The internal to common carotid artery ratio is 0.9. This would be consistent with a 1-49% stenosis. VERTEBRALS: There is antegrade flow in both vertebral arteries. IMPRESSION: ONLY 1-49% STENOSIS NEAR THE ORIGINS OF THE INTERNAL CAROTID ARTERIES BILATERALLY. CPT II Codes: 3100F <Electronically signed by Andrzej Hernandez MD in [place]> 09/28/18 1131 Dictated By: Andrzej Hernandez MD Dictated Date/Time: 09/28/18 1131 Transcribed Date/Time: 09/28/18 1123 Copy to: Other Results/Reports: *[facility]* [place] [address] Fax #: [phone] Transthoracic Echocardiogram Summary: - Left ventricle: Systolic function is hyperdynamic. The estimated ejection fraction is 60-65%. Wall motion is normal; there are no regional wall motion abnormalities. - Right ventricle: Systolic function is normal. - Atrial septum: A PFO is demonstrated by agitated saline contrast. Positive bubble study. There is a septal aneurysm. - Mitral valve: There is no significant regurgitation. - Aortic valve: There is no evidence of stenosis. - Tricuspid valve: There is no significant regurgitation. - Pericardium, extracardiac: There is no significant pericardial effusion. - Study data: No prior study is available for comparison. ] Assessment - Problem List Assessment: Patient Problems Acute headache (Acute) Arterial embolism (Acute) CVA (cerebral vascular accident) (Acute) Cerebrovascular accident (CVA) due to embolism (Acute) Left hallux osteomyelitis (Acute) On continuous oral anticoagulation (Acute) PICC (peripherally inserted central catheter) removal (Acute) Diabetes mellitus with neuropathy (Chronic) History of atrial fibrillation (Chronic) Hypertension, essential (Chronic) Hypertriglyceridemia (Chronic) Left hemiparesis (Chronic) Poor compliance (Chronic) Type 2 diabetes mellitus with hyperglycemia (Chronic) Plan: Acute headache (Acute)Arterial embolism (Acute)CVA (cerebral vascular accident) (Acute)Cerebrovascular accident (CVA) due to embolism (Acute) I have discussed his case with both Dr. Harris and Dr. Lay for neurology. They are exploring a number of issues. His headache has resolved. He has some visual disturbance - though he is unable to explain this clearly - he is able to read. I defer the continuing work up and evaluation of these neurological abnormalities to neurology. For PT and OT Left hallux osteomyelitis (Acute) We have substituted vancomycin for daptomycin. I wonder if he needs this at all as he has completed 6 weeks of antibacterial treatment - I will get a clear record from Dr. Dobson's office in [place]. I called them to confirm the treatment with daptomycin On continuous oral anticoagulation (Acute) I think this is important - the benefits outweigh the risks PICC (peripherally inserted central catheter) removal (Acute) Diabetes mellitus with neuropathy (Chronic) Type 2 diabetes mellitus with hyperglycemia (Chronic) His control is not perfect - but better than at home Secondary diagnoses History of atrial fibrillation (Chronic) regular pulse today Hypertension, essential (Chronic) Hypertriglyceridemia (Chronic) Left hemiparesis (Chronic) Poor compliance (Chronic) I discussed the above with the patient. He agrees with the management plan
[2018-09-29] MEDS: Diltiazem TAB* 60 MG PO SCH ×2 (08:27→20:49)
[2018-09-29] MEDS ORDERED: Dextrose 50% VIAL 50 ml IV PUSH PRN (08:32)
[2018-09-29] MEDS ORDERED: Iodixanol* (CONTRAST) 320 MG/ML 100 ML SDV IV ONE (09:02)
[2018-09-29 09:26] LABS: TSH (Thyroid Stimulating Horm) 1.97 mcIU/mL (0.34-5.60)
[2018-09-29 09:28] LABS: Free T4 0.8 ng/dL (0.61-1.12)
[2018-09-29 09:37] LABS: Folate 9.88 ng/mL (>3.99)
[2018-09-29] MEDS: Insulin LISPRO* 1 UNITS UNIT SUBCUT SCH ×6 (10:19→20:51)
[2018-09-29] MEDS: Acetaminophen TAB* 325 MG PO PRN (12:27)
[2018-09-30] MEDS: Vancomycin(*) 1,000 MG in NS 0.9% 250 ML* 250 ML IVPB SCH ×5 (01:27→23:43)
[2018-09-30] MEDS ORDERED: Vancomycin Trough Check NOTE FOLLOW UP ONE (05:30)
[2018-09-30 05:55] LABS: ABS Eosinophils 0.2 10^3/ul (0-0.6); ABS Lymphocytes 2.7 10^3/ul (1.0-4.8); ABS Monocytes 0.5 10^3/ul (0-0.8); Eosinophil % 2.4 %; Hematocrit 45 % (42-52); Hemoglobin 15.4 g/dL (14.0-18.0); Lymphocyte % 31.7 %; Mean Corpuscular HGB Conc 35 g/dL (31-36); Mean Corpuscular Hemoglobin 32 pg (27-31); Mean Corpuscular Volume 93 fL (80-94); Mean Platelet Volume 9.6 fL (7.4-10.4); Platelet Count 176 10^3/uL (150-450); Red Blood Count 4.84 10^6 /uL (4.18-5.48); Red Cell Distribution Width 14 % (10-15); White Blood Count 8.4 10^3/uL (3.5-10.8)
[2018-09-30 06:14] LABS: C Reactive Protein 1.57 mg/L (<8.01); Calcium 8.5 mg/dL (8.6-10.3); EGFR African American 128.5 (>60); EGFR Non-African American 106.2 (>60); Potassium 3.4 mmol/L (3.5-5.0)
--- NOTE | 2018-09-30 07:43 | PN ---
Subjective Date of Service: 09/30/18 Length of Stay: 2 Days Interval History: Overnight, the patient reports no new issues. He has not been walking much but states he has seen PT. He states that his headache is gone and his vision is much improved. He denies any current vision symptoms. He has a mild lower back ache but feels it is from lying in bed all this time. No new neurologic symptoms. New Studies: CT Chest: Impression: 1. Left IJ is diminutive which is likely an anatomic variant. There is no evidence of stenosis or occlusion of the left brachiocephalic vein or within the superior vena cava. 2. Ill-efined 2.9 cm low-attenuation lesion of the right lobe of the liver. This is incompletely evaluated on ecurrent exmination. Recommend consideration of further evaluation with U/S of the Abdomen Objective Active Medications: Acetaminophen (Tylenol Tab*) 650 mg PO Q4H PRN PRN Reason: PAIN - MILD Last Admin: 09/29/18 12:27 Dose: 650 mg Apixaban (Eliquis*) 5 mg PO BID [facility] Last Admin: 09/29/18 20:49 Dose: 5 mg Dextrose (Dextrose 50% Vial 50 Ml*) 25 ml IV PUSH .FOR FS < 60 - SS PRN PRN Reason: FS < 60 Diltiazem HCl (Cardizem Tab*) 120 mg PO BID [facility] Last Admin: 09/29/18 20:49 Dose: 120 mg Vancomycin HCl 1,000 mg/ (Sodium Chloride) 250 mls @ 166.667 mls/hr IVPB Q6H [facility] Last Admin: 09/30/18 01:27 Dose: 166.667 mls/hr Insulin Glargine (Lantus(*)) 60 units SUBCUT BID [facility] Last Admin: 09/29/18 20:50 Dose: 60 units Insulin Human Lispro (Humalog*) 0 units SUBCUT ACHS [facility]; Protocol Last Admin: 09/29/18 20:51 Dose: 12 units Insulin Human Lispro (Humalog*) 15 units SUBCUT AC [facility]; Protocol Last Admin: 09/29/18 17:51 Dose: 15 unit Metoprolol Tartrate (Lopressor Tab*) 25 mg PO BID [facility] Last Admin: 09/29/18 20:49 Dose: 25 mg Pharmacy Consult (Vancomycin Per Pharmacy*) 1 note FOLLOW UP . PRN PRN Reason: PER PROTOCOL Vital Signs 09/29/18 09/29/18 09/29/18 07:59 08:00 11:47 Temperature 97.3 F 97.8 F Pulse Rate 78 84 Respiratory 20 14 18 Rate Blood Pressure 120/84 119/50 (mmHg) O2 Sat by Pulse 96 97 Oximetry 09/29/18 09/29/18 09/29/18 15:13 19:44 20:00 Temperature 97.7 F 98.2 F Pulse Rate 73 87 Respiratory 16 18 18 Rate Blood Pressure 149/82 175/97 (mmHg) O2 Sat by Pulse 96 97 Oximetry 09/29/18 09/30/18 23:40 03:42 Temperature 98.2 F 98.1 F Pulse Rate 70 71 Respiratory 18 18 Rate Blood Pressure 141/74 129/63 (mmHg) O2 Sat by Pulse 96 96 Oximetry Intake and Output Last 24 Hours 09/28/18 09/29/18 09/30/18 10/01/18 06:59 06:59 06:59 06:59 Intake Total 1260 719.4 Output Total 0 Balance 1260 719.4 Weight 230 lb 213 lb 6.519 oz Intake: IV Fluids 126 56.4 ABX - VANCOMYCIN 12 56.4 NS (0.9%) 114 IVPB 654 543 ABX - VANCOMYCIN 654 543 Oral 480 120 Output: Urine 0 Other: Estimated Void Medium Oxygen Devices in Use Now: None Neurology Exam: General: Disheveled. Sitting up in bed. NAD HEENT: Normocephalic/atraumatic, sclera anicteric, mucous membranes moist Neck: Supple. Chest: Clear to auscultation bilaterally Cardiovascular: Regular rate and rhythm without murmurs, rubs, gallops Abdomen: Soft, non-tender/non-distended Extremities: No clubbing, cyanosis, or edema. Loss of hair on the legs with some venous changes, unchanged Neurological Findings: Awake, alert, and oriented to person, place, and time. Speech: fluent without dysarthria, repetition intact Cranial Nerve: PERRL, EOM intact, VFF(no deficits), no nystagmus, face symmetric bilaterally, facial sensation intact, hearing intact to finger rub bilaterally, palate elevates symmetrically, tongue midline Motor: 5/5 throughout, proximal and distal extremities x4 tone/bulk normal, no drift Sensation: Loss of LT/PP/Vib in the feet to ankles bilaterally Deep Tendon Reflex: Down throughout Finger to nose, heel to davey, rapid alternating movements intact without ataxia. No intention tremor today I did stand him today, stable, no sway with eyes open/closed Result Diagrams: 09/30/18 05:45 09/30/18 05:45 Additional Lab and Data: ANCA, Homocysteine, C3, C4 Pending Microbiology and Other Data: Microbiology 09/29/18 03:45 Nasal Screen MRSA (PCR) - Final Nasal Mrsa Not Detected Diagnostic Imaging: CXR: no acute processes. Brain MRI: --1. Restricted diffusion is identified within the left cerebellar lobe,. consistent with an acute infarct. Additional foci of restricted diffusion are. identified within the bilateral occipital lobes, right frontal cortex, and. right thalamus, also consistent with acute infarcts. Due to the distribution of. ischemic change, embolic disease is considered. --2. There are scattered additional foci of FLAIR hyperintensity within the. cerebral white matter. In a patient this age, this likely represents chronic. small vessel ischemic disease. --3. Mild atrophy. --4. There is abnormal signal intensity within the left transverse venous sinus , suggestive of slow flow or thrombosis. This can be further evaluated with MRV. --5. Posterior to the right cerebellar lobe, an extra-axial fluid collection is. identified, consistent with an arachnoid cyst or yang cisterna magna variant. MRV: Slow flow in left tswgllqoxr-ktibxuq-ujhiqqt venous system, no clot appreciated Head CTA: Impression: 1. There is a segment of the distal V4 segment of the right VA with anbsence of enhancement consistent with occlusion 2. Dominant left vertebral arter is identified 3. Left transverse sinuses poorly visualized medially. When correlated with the MRI from the same day, thrombosis is considered. Neck CTA: Impression: 1. No stenosis or occlusion of the extracranial ICA bilaterally 2. Dominant left VA visualized Carotid U/S: 1. 1-49% stenosis origin of ICA bilaterally 2. Bilateral VA flow --1. No stenosis or occlusion of the extracranial internal carotid arteries. bilaterally. --2. A dominant left vertebral artery is visualized. --3. Additional findings described above. Dr. Guillen, neurology, was contacted who stated that the pt needed a head and neck CTA. TTE: Summary: --Left ventricle: EF 60-65%. Wall motion normal. --Right ventricle systolic function is normal --Atrial septum: A PFO is demonstrated by agitated saline contrast. Possible bubble study. Septal aneurysm --No significnat valvular issues LE Dopplers: Negative bilaterally for DVT CT Chest: Impression: 1. Left IJ is diminutive which is likely an anatomic variant. There is no evidence of stenosis or occlusion of the left brachiocephalic vein or within the superior vena cava. 2. Ill-efined 2.9 cm low-attenuation lesion of the right lobe of the liver. This is incompletely evaluated on ecurrent exmination. Recommend consideration of further evaluation with U/S of the Abdomen Assessment/Plan 58 year old gentleman with a history of Diabetes, poorly controlled with diabetic foot ulcer vs. osteo being treated with IV Daptomycin, history of A.fib on Eliquis with possible compliance issues, may have missed several days last week, presents with a history of severe headache with vision changes, possibly some clumsiness on the left side, vision changes which began last Thursday, MRI findings as noted in the HPI with evidence of bi-occipital stroke, left cerebellar stroke, right frontal cortex and right thalamus concerning for embolic stroke. MRI also showed possible left transverse venous sinus slow flow vs. obstruction, MRV shows slow flow but notes no obstruction. TTE showed evidence of PFO with atrial septal aneurysm. LE Dopplers negative. The etiology of the patient's stroke(s) is broad but includes: 1. Embolic from cardiac source given history of A.fib on Eliquis. He may have been non-compliant. 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 --Continue Eliquis, now over 5 days out, chance of hemorrhagic conversion is low at this point. 2. Thomboembolic: possible acute thrombosis of the right vertebral with embolus. It is unclear if VA is acute or chronic --This would not explain right frontal/thalamic strokes 3. PICC line: with PFO, a thrombus around PICC line is possible with paradoxical embolus vs. intra-arterial PICC with thrombus 4. The possibility of intra-arterial PICC exists, could have been acute thrombus on the PICC line, air-embolus vs. some reaction to Dapto (vasospasm) or medication embolus 5. LE DVT could have been paradoxical source, although Dopps negative. 6. Possible vasculitis, although low suspicion: will send labs 7. Acute thromboembolic stroke distal to VA stenosis (basilar artery). Impossible to know if VA is acutely or chronically occluded. --Would not explain right frontal/thalamic stroke Plan: I continue to suspect cardioembolic stroke vs. paradoxical embolus --Would continue Eliquis, hold on ASA/Plavix for now given small but real risk of bleeding. He has no worrisome large vessel disease at this point --Should he have another stroke on Eliquis, I think that closure of the PFO would be warranted. I recommend outpatient appointment with Cardiology assess this. --Follow up vasculitic labs although my suspicion is very low --Continue secondary stroke risk factor reduction: Tight DM control, blood pressure control. His LDL is good. No statin for now given history of possible non-compliance, I think keeping his medication regimen as simple as possible is important --No evidence of either DVT or venous thrombosus. History of PICC line, now removed. No obvious cause for the slow flow in the transverse since but appears to be an incidental finding at this point. --Recommend continued PT/OT. --Recommend further workup of liver lesion noted on Chest CT per PCP. This can likely happen as an outpatient --Antibiotics per PCP for his ulcer/osteo. --We will plan to follow up as outpatient as well. We will sign off for now but remain available for any further concerns. Thank you for the opportunity to participate in his care.
[2018-09-30] MEDS: Acetaminophen TAB* 325 MG PO PRN (07:50)
[2018-09-30] MEDS: Insulin LISPRO* 1 UNITS UNIT SUBCUT SCH ×8 (08:21→21:07)
[2018-09-30] MEDS: Insulin GLARGINE(*) 1 UNITS UNIT SUBCUT SCH ×2 (08:26→21:06)
--- NOTE | 2018-09-30 08:26 | PN ---
Subjective - Subjective Reason for Note: Progress Note History: He continues to feel a little "fuzzy", but his headache has gone and his vision has improved. He has a few "floaties", but is able to read. He has not mobilized much and wants to do more. His left hallux has improved with antibacterial treatment. Active Problems: Active Problems Acute headache (Acute) R51 Arterial embolism (Acute) I74.9 CVA (cerebral vascular accident) (Acute) I63.9 Cerebrovascular accident (CVA) due to embolism (Acute) I63.9 Left hallux osteomyelitis (Acute) M86.9 On continuous oral anticoagulation (Acute) Z79.01 PICC (peripherally inserted central catheter) removal (Acute) Z45.2 Diabetes mellitus with neuropathy (Chronic) E11.40 History of atrial fibrillation (Chronic) Z86.79 Hypertension, essential (Chronic) I10 Hypertriglyceridemia (Chronic) E78.1 Left hemiparesis (Chronic) G81.94 Poor compliance (Chronic) Z91.19 Type 2 diabetes mellitus with hyperglycemia (Chronic) E11.65 Current Medications: Current Medications Acetaminophen (Tylenol Tab*) 650 mg PO Q4H PRN PRN Reason: PAIN - MILD Last Admin: 09/30/18 07:50 Dose: 650 mg Apixaban (Eliquis*) 5 mg PO BID [facility] Last Admin: 09/29/18 20:49 Dose: 5 mg Dextrose (Dextrose 50% Vial 50 Ml*) 25 ml IV PUSH .FOR FS < 60 - SS PRN PRN Reason: FS < 60 Diltiazem HCl (Cardizem Tab*) 120 mg PO BID [facility] Last Admin: 09/29/18 20:49 Dose: 120 mg Vancomycin HCl 1,000 mg/ (Sodium Chloride) 250 mls @ 166.667 mls/hr IVPB Q6H [facility] Last Admin: 09/30/18 07:35 Dose: 166.667 mls/hr Insulin Glargine (Lantus(*)) 60 units SUBCUT BID [facility] Last Admin: 09/29/18 20:50 Dose: 60 units Insulin Human Lispro (Humalog*) 0 units SUBCUT ACHS [facility]; Protocol Last Admin: 09/29/18 20:51 Dose: 12 units Insulin Human Lispro (Humalog*) 15 units SUBCUT AC [facility]; Protocol Last Admin: 09/29/18 17:51 Dose: 15 unit Metoprolol Tartrate (Lopressor Tab*) 25 mg PO BID [facility] Last Admin: 09/29/18 20:49 Dose: 25 mg Pharmacy Consult (Vancomycin Per Pharmacy*) 1 note FOLLOW UP . PRN PRN Reason: PER PROTOCOL Home Medications: Home Medications Medication Instructions Recorded Confirmed Type Apixaban* [Eliquis*] 5 mg PO DAILY 09/28/18 09/28/18 History Humalog 15 units .ROUTE ACHS 09/28/18 09/28/18 History Metoprolol Tartrate TAB* 25 mg PO DAILY 09/28/18 09/28/18 History Toujeo Solostar Pen (NF) 90 units .ROUTE DAILY 09/28/18 09/28/18 History Trulicity 1.5 mg PO DAILY 09/28/18 09/28/18 History dilTIAZem HCl [Diltiazem HCl] 120 mg PO BID 09/28/18 09/28/18 History glipiZIDE [Glipizide] 5 mg PO BID 09/28/18 09/28/18 History Allergies: Allergies Allergy/AdvReac Type Severity Reaction Status Date / Time niacin Allergy Rash Verified 09/27/18 21:34 Objective - Vital Signs Vital Signs: Vital Signs 09/29/18 09/29/18 09/29/18 11:47 15:13 19:44 Temperature 97.8 F 97.7 F 98.2 F Pulse Rate 84 73 87 Respiratory 18 16 18 Rate Blood Pressure 119/50 149/82 175/97 (mmHg) O2 Sat by Pulse 97 96 97 Oximetry 09/29/18 09/29/18 09/30/18 20:00 23:40 03:42 Temperature 98.2 F 98.1 F Pulse Rate 70 71 Respiratory 18 18 18 Rate Blood Pressure 141/74 129/63 (mmHg) O2 Sat by Pulse 96 96 Oximetry - Intake and Output Intake and Output: Intake & Output 09/27/18 09/28/18 09/29/18 09/30/18 11:59 11:59 11:59 11:59 Intake Total 1260 719.4 Output Total 0 0 Balance 0 1260 719.4 Weight 213 lb 6.519 oz Intake: IV Fluids 126 56.4 ABX - VANCOMYCIN 12 56.4 NS (0.9%) 114 IVPB 654 543 ABX - VANCOMYCIN 654 543 Oral 480 120 Output: Urine 0 0 Other: Estimated Void Medium Medium ADLs: Meal Record Start: 09/28/18 06: 11 Freq: ,,18 Status: Inactive Protocol: Created 09/28/18 06:11 System (Rec: 09/28/18 06:11 System [id number]) Document 09/28/18 13:00 [id number] (Rec: 09/28/18 14:03 [id number] ICU-C12) Document 09/28/18 18:00 [id number] (Rec: 09/28/18 19:00 [id number] ICU-C12) ADLs: Meal Record Start: 09/28/18 20: 15 Freq: Status: Active Protocol: Created 09/28/18 20:15 [id number] (Rec: 09/28/18 20:15 [id number] TELE-C09) Document 09/28/18 21:59 [id number] (Rec: 09/28/18 22:01 [id number] TELE-C09) Document 09/29/18 18:02 [id number] (Rec: 09/29/18 18:02 [id number] TELE-C13) Intake and Output Start: 09/27/18 21: 00 Freq: Status: Active Protocol: Created 09/27/18 21:00 System (Rec: 09/27/18 21:00 System [id number]) Document 09/29/18 05:55 [id number] (Rec: 09/29/18 05:55 [id number] TELE-C05) Intake and Output Start: 09/28/18 06: 11 Freq: 06,14,2200 Status: Inactive Protocol: Created 09/28/18 06:11 System (Rec: 09/28/18 06:11 System ICU-C25) Document 09/28/18 07:00 [id number] (Rec: 09/28/18 13:59 [id number] ICU-C12) Document 09/28/18 08:00 [id number] (Rec: 09/28/18 13:59 [id number] ICU-C12) Document 09/28/18 09:00 [id number] (Rec: 09/28/18 13:59 [id number] ICU-C12) Document 09/28/18 10:00 [id number] (Rec: 09/28/18 13:59 [id number] ICU-C12) Document 09/28/18 11:00 [id number] (Rec: 09/28/18 13:59 [id number] ICU-C12) Document 09/28/18 12:00 [id number] (Rec: 09/28/18 14:00 [id number] ICU-C12) Document 09/28/18 13:00 [id number] (Rec: 09/28/18 14:00 [id number] ICU-C12) Document 09/28/18 13:59 [id number] (Rec: 09/28/18 14:00 [id number] ICU-C12) - Physical Exam General: No Cyanosis, No Anemia, No Jaundice, No Clubbing Lungs and Chest: Yes: Chest Expansion Full, Chest Expansion Symetrica, Percussion Note Resonant, Vessicular Breath Sounds. No: Crackles, Wheezes Heart Rate and Rhythm: Regular Additional Cardiovascular: Yes: Normal Heart Sounds. No: Heart Murmur, Pedal Edema Abdominal Exam: Yes: Soft. No: Distention, Abdominal Tenderness, Bowel Sounds Present - Extremities Cranial Nerves II-XII Intact: Yes Limbs: Normal Power, Normal Tone - Neuro Orientation: A/O x3 Psychiatric: Normal Speech: Normal Results - Results Lab Results: Laboratory Results - last 24 hr 09/29/18 09/29/18 09/29/18 08:15 11:55 17:06 WBC RBC Hgb Hct MCV MCH MCHC RDW Plt Count MPV Neut % (Auto) Lymph % (Auto) [place] % (Auto) Eos % (Auto) Baso % (Auto) Absolute Neuts (auto) Absolute Lymphs (auto) Absolute Monos (auto) Absolute Eos (auto) Absolute Basos (auto) Absolute Nucleated RBC Nucleated RBC % Sodium Potassium Chloride Carbon Dioxide Anion Gap BUN Creatinine Est GFR ( Amer) Est GFR (Non-Af Amer) BUN/Creatinine Ratio Glucose POC Glucose (mg/dL) 326 H 224 H Calcium C-Reactive Protein Vitamin B12 530 Folate 9.88 TSH 1.97 Free T4 0.80 Vancomycin Trough 09/29/18 09/30/18 09/30/18 20:01 05:45 05:45 WBC 8.4 RBC 4.84 Hgb 15.4 Hct 45 MCV 93 MCH 32 H MCHC 35 RDW 14 Plt Count 176 MPV 9.6 Neut % (Auto) 59.3 Lymph % (Auto) 31.7 [place] % (Auto) 6.1 Eos % (Auto) 2.4 Baso % (Auto) 0.5 Absolute Neuts (auto) 5.0 Absolute Lymphs (auto) 2.7 Absolute Monos (auto) 0.5 Absolute Eos (auto) 0.2 Absolute Basos (auto) 0.0 Absolute Nucleated RBC 0.0 Nucleated RBC % 0.0 Sodium Potassium Chloride Carbon Dioxide Anion Gap BUN Creatinine Est GFR ( Amer) Est GFR (Non-Af Amer) BUN/Creatinine Ratio Glucose POC Glucose (mg/dL) 302 H Calcium C-Reactive Protein Vitamin B12 Folate TSH Free T4 Vancomycin Trough 16.0 09/30/18 05:45 WBC RBC Hgb Hct MCV MCH MCHC RDW Plt Count MPV Neut % (Auto) Lymph % (Auto) [place] % (Auto) Eos % (Auto) Baso % (Auto) Absolute Neuts (auto) Absolute Lymphs (auto) Absolute Monos (auto) Absolute Eos (auto) Absolute Basos (auto) Absolute Nucleated RBC Nucleated RBC % Sodium 139 Potassium 3.4 L Chloride 111 Carbon Dioxide 23 Anion Gap 5 BUN 15 Creatinine 0.75 Est GFR ( Amer) 128.5 Est GFR (Non-Af Amer) 106.2 BUN/Creatinine Ratio 20.0 Glucose 84 POC Glucose (mg/dL) Calcium 8.5 L C-Reactive Protein 1.57 Vitamin B12 Folate TSH Free T4 Vancomycin Trough Radiology Results: Patient Name: ULISES MCCAIN Medical Record#: [id number] Ordering Physician: Carlos Lay MD Acct.#: [id number] : 1960 Age: 58 Sex: M Location: [address] [place] [address]/TELEMETRY Exam Date: 09/29/18 0853 ADM Status: ADM IN Order Information: CT CHEST W Accession Number: [id number] CPT: 22206 HISTORY: R/O venous stenosis. Spoke with Dr. Gomez COMPARISONS: MRV dated September 28, 2018 TECHNIQUE: Multiple contiguous axial CT scans of the chest were obtained with intravenous contrast. Coronal and sagittal multiplanar reformations are also submitted for review. FINDINGS: NECK AND THYROID: The lower neck and thyroid are unremarkable. CHEST WALL: There is no lower cervical, axillary, or supraclavicular lymphadenopathy by size criteria. HEART AND PERICARDIUM: The heart is unremarkable. AORTA AND PULMONARY VASCULATURE: The aorta and pulmonary vasculature are normal. The left internal jugular vein is diminutive, though this may be an anatomic variant. There is mixing artifact in the left brachiocephalic vein without evidence of stenosis or occlusion. MEDIASTINUM: There is no mediastinal lymphadenopathy by size criteria. RADHA: There is no hilar lymphadenopathy by size criteria. AIRWAY AND ESOPHAGUS: The airway is unremarkable, without endobronchial filling defect. The esophagus is grossly normal. LUNG PARENCHYMA: The lungs are clear. PLEURA: No pleural abnormalities are noted. UPPER ABDOMEN: There is ill-defined low-attenuation lesion of the right lobe of liver measuring 2.9 cm in size. BONES AND SOFT TISSUES: Mild degenerative changes are noted. OTHER: None. IMPRESSION: 1. 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 THERE IS NO EVIDENCE OF STENOSIS OR OCCLUSION OF THE LEFT BRACHIOCEPHALIC VEIN OR WITHIN THE SUPERIOR VENA CAVA. 2. THERE IS AN ILL-DEFINED 2.9 CM LOW-ATTENUATION LESION OF THE RIGHT LOBE OF LIVER. THIS IS INCOMPLETELY EVALUATED ON THE CURRENT EXAMINATION. RECOMMEND CONSIDERATION OF FURTHER EVALUATION WITH ULTRASOUND OF THE ABDOMEN. <Electronically signed by Rusty Gomez MD in OV> 09/29/18953 Dictated By: Rusty Gomez MD Dictated Date/Time: 09/29/18953 Transcribed Date/Time: 09/29/18941 This report is only to be considered final once signed by the Provider(s) as displayed in the "<Electronically Signed by >" field (s). Absence of a signature indicates the report is in a draft status and still needs to be finalized. In the event this document was created by someone other than the signing Provider, the individual initiating the document will be listed in the "Entered by:" or "Dictated by:" king. 1 of 2 Assessment - Problem List Assessment: Patient Problems Acute headache (Acute) Arterial embolism (Acute) CVA (cerebral vascular accident) (Acute) Cerebrovascular accident (CVA) due to embolism (Acute) Left hallux osteomyelitis (Acute) On continuous oral anticoagulation (Acute) PICC (peripherally inserted central catheter) removal (Acute) Diabetes mellitus with neuropathy (Chronic) History of atrial fibrillation (Chronic) Hypertension, essential (Chronic) Hypertriglyceridemia (Chronic) Left hemiparesis (Chronic) Poor compliance (Chronic) Type 2 diabetes mellitus with hyperglycemia (Chronic) Plan: Arterial embolism (Acute) CVA (cerebral vascular accident) (Acute) Cerebrovascular accident (CVA) due to embolism (Acute)Acute headache (Acute) He has improved greatly - he has no further headache, his vision is improved. He feels a little "fuzzy". I spoke with Dr. Lay - he feels the work up is complete. We are not sure of the pathophysiology of this multiterritorial stroke - it clearly is embolic. He had not taken eliquis for 2 days. It may be due to the effect of daptomycin delivered into his subclavian artery Left hallux osteomyelitis (Acute) I obtained records from Dr. Julisa Dobson , his infectious disease child welfare consultant. She prescribed daptomycin and metronidazole on 08/04/2018 and according to her notes and the patient's recollection, it started August 16, 2018. His last IV dose via the PICC was 2018. Hence he completed 40/42 days of planned therapy. He also completed the metronidazole to that date. Together with the vancomycin in the hospital he has completed 42 days. I will obtain an MRI of his left hallux - it this is resolved, then I will stop antibacterials (this was planned by Dr. Dobson). I will consider oral therapy with linezolid and metronidazole otherwise. On continuous oral anticoagulation (Acute) ongoing Type 2 diabetes mellitus with hyperglycemia (Chronic) - he has labile glycemic control - continue current Rx secondary diagnoses PICC (peripherally inserted central catheter) removal (Acute) Diabetes mellitus with neuropathy (Chronic) History of atrial fibrillation (Chronic) Hypertension, essential (Chronic) Hypertriglyceridemia (Chronic) Left hemiparesis (Chronic) Poor compliance (Chronic) I discussed the above with the patient and he agrees with this management plan.
[2018-09-30] MEDS: Diltiazem TAB* 60 MG PO SCH ×2 (08:33→21:05)
[2018-09-30] MEDS: Apixaban* 5 MG TAB PO SCH ×2 (08:33→21:05)
[2018-09-30] MEDS: Metoprolol Tartrate TAB* 25 MG PO SCH ×2 (08:34→21:05)
[2018-09-30] MEDS: metroNIDAZOLE TAB* 250 MG PO SCH ×3 (08:53→21:05)
[2018-09-30] MEDS ORDERED: Gadoteridol* (CONTRAST) 279.3 MG/ML 10 ML IV ONE (10:50)
[2018-09-30 11:58] LABS: Complement C3 127 mg/dL (75 - 175)
[2018-10-01 06:39] LABS: ABS Basophils 0.1 10^3/ul (0-0.2); ABS Eosinophils 0.2 10^3/ul (0-0.6); ABS Lymphocytes 2.1 10^3/ul (1.0-4.8); ABS Monocytes 0.4 10^3/ul (0-0.8); Eosinophil % 2.5 %; Hematocrit 44 % (42-52); Hemoglobin 15.5 g/dL (14.0-18.0); Lymphocyte % 30.7 %; Mean Corpuscular HGB Conc 36 g/dL (31-36); Mean Corpuscular Hemoglobin 33 pg (27-31); Mean Corpuscular Volume 93 fL (80-94); Mean Platelet Volume 10.3 fL (7.4-10.4); Nucleated Red Blood Cells % 0.1; Platelet Count 170 10^3/uL (150-450); Red Blood Count 4.69 10^6 /uL (4.18-5.48); Red Cell Distribution Width 13 % (10-15); White Blood Count 6.7 10^3/uL (3.5-10.8)
[2018-10-01 06:52] LABS: Anion Gap 7 mmol/L (2-11); CO2 Carbon Dioxide 22 mmol/L (22-32); Chloride 110 mmol/L (101-111); Potassium 3.7 mmol/L (3.5-5.0); Sodium 139 mmol/L (135-145)
[2018-10-01 06:57] LABS: BUN/Creatinine Ratio 14.9 (8-20); Blood Urea Nitrogen 11 mg/dL (6-24); C Reactive Protein < 1.00 mg/L (<8.01); EGFR African American 130.5 (>60); EGFR Non-African American 107.9 (>60); Glucose 164 mg/dL (70-100)
[2018-10-01] MEDS: Vancomycin(*) 1,000 MG in NS 0.9% 250 ML* 250 ML IVPB SCH (07:30)
[2018-10-01 07:31] VITALS: BP 144/84
--- NOTE | 2018-10-01 08:19 | PN ---
Subjective - Subjective Reason for Note: Discharge Note History: Discharge Summary He is feeling close to baseline this morning. He has no headache and his visual deficit is minimal. He has no pain in his left hallux. He has no adverse effects from the antibacterial - in particular no diarrhea. Active Problems: Active Problems Acute headache (Acute) R51 Arterial embolism (Acute) I74.9 CVA (cerebral vascular accident) (Acute) I63.9 Cerebrovascular accident (CVA) due to embolism (Acute) I63.9 Left hallux osteomyelitis (Acute) M86.9 On continuous oral anticoagulation (Acute) Z79.01 PICC (peripherally inserted central catheter) removal (Acute) Z45.2 Diabetes mellitus with neuropathy (Chronic) E11.40 History of atrial fibrillation (Chronic) Z86.79 Hypertension, essential (Chronic) I10 Hypertriglyceridemia (Chronic) E78.1 Left hemiparesis (Chronic) G81.94 Poor compliance (Chronic) Z91.19 Type 2 diabetes mellitus with hyperglycemia (Chronic) E11.65 Current Medications: Current Medications Acetaminophen (Tylenol Tab*) 650 mg PO Q4H PRN PRN Reason: PAIN - MILD Last Admin: 09/30/18 07:50 Dose: 650 mg Apixaban (Eliquis*) 5 mg PO BID [facility] Last Admin: 09/30/18 21:05 Dose: 5 mg Dextrose (Dextrose 50% Vial 50 Ml*) 25 ml IV PUSH .FOR FS < 60 - SS PRN PRN Reason: FS < 60 Diltiazem HCl (Cardizem Tab*) 120 mg PO BID [facility] Last Admin: 09/30/18 21:05 Dose: 120 mg Vancomycin HCl 1,000 mg/ (Sodium Chloride) 250 mls @ 166.667 mls/hr IVPB Q6H [facility] Last Admin: 10/01/18 07:30 Dose: 166.667 mls/hr Insulin Glargine (Lantus(*)) 60 units SUBCUT BID [facility] Last Admin: 09/30/18 21:06 Dose: 60 units Insulin Human Lispro (Humalog*) 0 units SUBCUT ACHS [facility]; Protocol Last Admin: 09/30/18 21:07 Dose: 6 units Insulin Human Lispro (Humalog*) 20 units SUBCUT AC [facility]; Protocol Last Admin: 09/30/18 17:40 Dose: 20 units Metoprolol Tartrate (Lopressor Tab*) 25 mg PO BID [facility] Last Admin: 09/30/18 21:05 Dose: 25 mg Metronidazole (Flagyl Tab*) 500 mg PO TID [facility] Last Admin: 09/30/18 21:05 Dose: 500 mg Pharmacy Consult (Vancomycin Per Pharmacy*) 1 note FOLLOW UP . PRN PRN Reason: PER PROTOCOL Home Medications: Home Medications Medication Instructions Recorded Confirmed Type Apixaban* [Eliquis*] 5 mg PO DAILY 09/28/18 09/28/18 History Humalog 15 units .ROUTE ACHS 09/28/18 09/28/18 History Metoprolol Tartrate TAB* 25 mg PO DAILY 09/28/18 09/28/18 History Toujeo Solostar Pen (NF) 90 units .ROUTE DAILY 09/28/18 09/28/18 History Trulicity 1.5 mg PO DAILY 09/28/18 09/28/18 History dilTIAZem HCl [Diltiazem HCl] 120 mg PO BID 09/28/18 09/28/18 History Linezolid TAB* [Zyvox 600 MG TAB*] 600 mg PO BID #60 tab 10/01/18 Rx metroNIDAZOLE TAB* [Flagyl 250 mg 500 mg PO TID tab 10/01/18 Rx TAB*] Allergies: Allergies Allergy/AdvReac Type Severity Reaction Status Date / Time niacin Allergy Rash Verified 09/27/18 21:34 Objective - Vital Signs Vital Signs: Vital Signs 09/30/18 09/30/18 09/30/18 08:37 11:44 12:51 Temperature 97.7 F 97.7 F Pulse Rate 90 71 Respiratory 16 16 Rate Blood Pressure 153/82 167/108 138/82 (mmHg) O2 Sat by Pulse 98 97 Oximetry 09/30/18 09/30/18 09/30/18 15:42 20:00 23:15 Temperature 98.1 F 98 F 97.1 F Pulse Rate 74 74 69 Respiratory 18 18 18 Rate Blood Pressure 147/80 140/82 138/64 (mmHg) O2 Sat by Pulse 98 97 96 Oximetry 10/01/18 10/01/18 03:32 07:30 Temperature 98.4 F 97.9 F Pulse Rate 69 71 Respiratory 18 16 Rate Blood Pressure 142/71 144/84 (mmHg) O2 Sat by Pulse 96 98 Oximetry - Intake and Output Intake and Output: Intake & Output 09/28/18 09/29/18 09/30/18 10/01/18 11:59 11:59 11:59 11:59 Intake Total 1260 719.4 1996 Output Total 0 0 Balance 0 1260 719.4 1996 Weight 213 lb 6.519 oz Intake: IV Fluids 126 56.4 60 ABX - VANCOMYCIN 12 56.4 60 NS (0.9%) 114 IVPB 654 543 510 ABX - VANCOMYCIN 654 543 510 Oral 549 649 4588 Output: Urine 0 0 Other: Estimated Void Medium Medium ADLs: Meal Record Start: 09/28/18 06: 11 Freq: ,,18 Status: Inactive Protocol: Created 09/28/18 06:11 System (Rec: 09/28/18 06:11 System ICU-C25) Document 09/28/18 13:00 [id number] (Rec: 09/28/18 14:03 [id number] ICU-C12) Document 09/28/18 18:00 [id number] (Rec: 09/28/18 19:00 [id number] ICU-C12) ADLs: Meal Record Start: 09/28/18 20: 15 Freq: Status: Active Protocol: Created 09/28/18 20:15 [id number] (Rec: 09/28/18 20:15 [id number] TELE-C09) Document 09/28/18 21:59 [id number] (Rec: 09/28/18 22:01 [id number] TELE-C09) Document 09/29/18 18:02 [id number] (Rec: 09/29/18 18:02 [id number] TELE-C13) Document 09/30/18 15:03 [id number] (Rec: 09/30/18 15:04 [id number] TELE-C01) Document 09/30/18 20:31 [id number] (Rec: 09/30/18 20:32 [id number] TELE-C11) Intake and Output Start: 09/27/18 21: 00 Freq: Status: Active Protocol: Created 09/27/18 21:00 System (Rec: 09/27/18 21:00 System [id number]) Document 09/29/18 05:55 [id number] (Rec: 09/29/18 05:55 [id number] TELE-C05) Document 09/30/18 15:04 [id number] (Rec: 09/30/18 15:04 [id number] TELE-C01) Intake and Output Start: 09/28/18 06: 11 Freq: 06,14,2200 Status: Inactive Protocol: Created 09/28/18 06:11 System (Rec: 09/28/18 06:11 System ICU-C25) Document 09/28/18 07:00 [id number] (Rec: 09/28/18 13:59 [id number] ICU-C12) Document 09/28/18 08:00 [id number] (Rec: 09/28/18 13:59 [id number] ICU-C12) Document 09/28/18 09:00 [id number] (Rec: 09/28/18 13:59 [id number] ICU-C12) Document 09/28/18 10:00 [id number] (Rec: 09/28/18 13:59 [id number] ICU-C12) Document 09/28/18 11:00 [id number] (Rec: 09/28/18 13:59 [id number] ICU-C12) Document 09/28/18 12:00 [id number] (Rec: 09/28/18 14:00 [id number] ICU-C12) Document 09/28/18 13:00 [id number] (Rec: 09/28/18 14:00 [id number] ICU-C12) Document 09/28/18 13:59 [id number] (Rec: 09/28/18 14:00 [id number] ICU-C12) - Physical Exam General Physical Exam Comment: Left great toe, mild swelling. See clinical photos take today. No cellulitis General: No Cyanosis, No Anemia, No Jaundice, No Clubbing Eye Exam: bilateral: EOMI - full, Nystagmus - one, Vision Field - full Skin: Normal: Rash Lungs and Chest: Yes: Chest Expansion Full, Chest Expansion Symetrica, Percussion Note Resonant, Vessicular Breath Sounds. No: Crackles, Wheezes Heart Rate and Rhythm: Regular JVP: Not Elevated Additional Cardiovascular: Yes: Normal Heart Sounds, Present Pedal Pulse. No: Heart Murmur, Pedal Edema Abdominal Exam: Yes: Soft, Bowel Sounds Present. No: Distention, Abdominal Tenderness - Extremities Cranial Nerves II-XII Intact: Yes Limbs: Normal Tone, Normal Coordination - finger-nose/heel-davey, Abnormal Power - subtle left hemiparesis (old) - Neuro Orientation: A/O x3 Psychiatric: Normal Speech: Normal Results - Results Lab Results: Laboratory Results - last 24 hr 09/29/18 09/29/18 09/30/18 08:15 08:15 08:19 WBC RBC Hgb Hct MCV MCH MCHC RDW Plt Count MPV Neut % (Auto) Lymph % (Auto) Toole % (Auto) Eos % (Auto) Baso % (Auto) Absolute Neuts (auto) Absolute Lymphs (auto) Absolute Monos (auto) Absolute Eos (auto) Absolute Basos (auto) Absolute Nucleated RBC Nucleated RBC % Sodium Potassium Chloride Carbon Dioxide Anion Gap BUN Creatinine Est GFR ( Amer) Est GFR (Non-Af Amer) BUN/Creatinine Ratio Glucose POC Glucose (mg/dL) 91 Glucose Meter Confirm Calcium C-Reactive Protein Anti-Nuclear Antibody 0.4 Proteinase 3 (PR3) 0.2 Myeloperoxidase Ab < 0.2 Complement C3 127 Complement C4 24 09/30/18 09/30/18 09/30/18 12:35 16:11 20:08 WBC RBC Hgb Hct MCV MCH MCHC RDW Plt Count MPV Neut % (Auto) Lymph % (Auto) Toole % (Auto) Eos % (Auto) Baso % (Auto) Absolute Neuts (auto) Absolute Lymphs (auto) Absolute Monos (auto) Absolute Eos (auto) Absolute Basos (auto) Absolute Nucleated RBC Nucleated RBC % Sodium Potassium Chloride Carbon Dioxide Anion Gap BUN Creatinine Est GFR ( Amer) Est GFR (Non-Af Amer) BUN/Creatinine Ratio Glucose POC Glucose (mg/dL) 251 H 212 H Glucose Meter Confirm 314 H Calcium C-Reactive Protein Anti-Nuclear Antibody Proteinase 3 (PR3) Myeloperoxidase Ab Complement C3 Complement C4 10/01/18 10/01/18 10/01/18 06:16 06:16 07:34 WBC 6.7 RBC 4.69 Hgb 15.5 Hct 44 MCV 93 MCH 33 H MCHC 36 RDW 13 Plt Count 170 MPV 10.3 Neut % (Auto) 58.9 Lymph % (Auto) 30.7 Toole % (Auto) 5.8 Eos % (Auto) 2.5 Baso % (Auto) 2.1 Absolute Neuts (auto) 4.0 Absolute Lymphs (auto) 2.1 Absolute Monos (auto) 0.4 Absolute Eos (auto) 0.2 Absolute Basos (auto) 0.1 Absolute Nucleated RBC 0.0 Nucleated RBC % 0.1 Sodium 139 Potassium 3.7 Chloride 110 Carbon Dioxide 22 Anion Gap 7 BUN 11 Creatinine 0.74 Est GFR ( Amer) 130.5 Est GFR (Non-Af Amer) 107.9 BUN/Creatinine Ratio 14.9 Glucose 164 H POC Glucose (mg/dL) 161 H Glucose Meter Confirm Calcium 8.0 L C-Reactive Protein < 1.00 Anti-Nuclear Antibody Proteinase 3 (PR3) Myeloperoxidase Ab Complement C3 Complement C4 Radiology Results: Patient Name: ULISES MCCAIN Medical Record#: [id number] Ordering Physician: Oli Lucero MD Acct.#: [id number] : 1960 Age: 58 Sex: M Location: [address] [place] [address]/TELEMETRY Exam Date: 09/30/18825 ADM Status: ADM IN Order Information: MRI LOWER EXTREMITY LEFT W/WO Accession Number: [id number] CPT: 88260 Indication: Osteoarthritis LEFT great toe. Post course of IV antibiotics. Pre and postcontrast MRI requested to assess for persistence and extent of disease. Comparison: June 16, 2018 radiographs. Technique: [employer] [place] 1.5 Nella [id number]. Pre and postcontrast MRI LEFT great toe. 20 mL ProHance contrast administered IV. Report: There is bone marrow edema at the distal phalanx of the great toe with suha osteolysis at the tuft. The bone marrow edema extends to the base of the distal phalanx. Corresponding partial loss of normal T1 marrow intensity in the same distribution. Corresponding mild osseous enhancement at the distal phalanx. Bone marrow signal is otherwise normal throughout the [id number]. Surrounding soft tissue inflammatory change without evidence for a loculated abscess collection. IMPRESSION: #. Osteomyelitis involving the distal phalanx of the great toe with suha osteolysis at the tuft. Surrounding soft tissue inflammatory change without evidence for a loculated abscess collection. Exam reviewed with Dr. Lucero 09/30/2018 12:49 PM EDT <Electronically signed by Torito Zamora MD in OV> 09/30/18 1253 Dictated By: Torito Zamora MD Dictated Date/Time: 09/30/18 1253 Transcribed Date/Time: 09/30/18 1206 Copy to: CC:Oli Lucero MD; Tim Cobos MD; Jovany Cooney MD; Carlos Lay MD; Diogo Harris MD; Fer Parsons MD; Blaine Euceda MSN,IS SUPPORT ANALYST,DAIRY PROCESSING EQUIPMENT OPERATOR-C; Kory Youngblood MD; Ward Ramos MD; Lorrie Donis MD; Kaden Mallory RISK CONTROL CONSULTANT; Juan Soliz MD; Carrie Henley RISK CONTROL CONSULTANT; Branden Robles MD; Branden Zavala MD; Aryan Carrion MD; Preston Belle MD; Abraham Cade MD; Nikki Fountain RISK CONTROL CONSULTANT; Nikki Alarcon MD; Juaquin Lo MD Imaging - [facility] - [facility] This report is only to be considered final once signed by the Provider(s) as displayed in the "<Electronically Signed by >" field (s). Absence of a signature indicates the report is in a draft status and still needs to be finalized. In the event this document was created by someone other than the signing Provider, the individual initiating the document will be listed in the "Entered by:" or "Dictated by:" king. 1 of 2 Other Results/Reports: Assessment - Problem List Assessment: Patient Problems Acute headache (Acute) Arterial embolism (Acute) CVA (cerebral vascular accident) (Acute) Cerebrovascular accident (CVA) due to embolism (Acute) Left hallux osteomyelitis (Acute) On continuous oral anticoagulation (Acute) PICC (peripherally inserted central catheter) removal (Acute) Diabetes mellitus with neuropathy (Chronic) History of atrial fibrillation (Chronic) Hypertension, essential (Chronic) Hypertriglyceridemia (Chronic) Left hemiparesis (Chronic) Poor compliance (Chronic) Type 2 diabetes mellitus with hyperglycemia (Chronic) Plan: Acute headache (Acute)Arterial embolism (Acute)CVA (cerebral vascular accident) (Acute) Cerebrovascular accident (CVA) due to embolism (Acute) He has multiple territory strokes. He has minimal clinical signs from this. He can manage his activities of daily living. He will follow with me as an outpatient. He has restarted his eliquis. Left hallux osteomyelitis (Acute) His MRI suggests ongoing inflammation in the left hallux, but whether it is infected is difficult to tell. His CRP is not elevated. He has received 42 days of IV daptomycin and 3 days of IV vancomycin. I have switched him to oral linezolid 600 mg bid and continued his metronidazole 500 mg tid. Linezolid has excellent tissue penetration, metronidazole - not particularly. He knows not to drink ethanol. He will follow with Dr. Julisa Dobson, his infectious disease consultat, next week ( he has an ongoing appt). On continuous oral anticoagulation (Acute) continue PICC (peripherally inserted central catheter) removal (Acute) This was ectopically placed (subclavian artery), he declines PICC line Diabetes mellitus with neuropathy (Chronic)Type 2 diabetes mellitus with hyperglycemia (Chronic) He will take lantus and admelog insulin. He will restart his Freestyle Alphonso glucometer secondary diagnoses: History of atrial fibrillation (Chronic) Hypertension, essential (Chronic) Hypertriglyceridemia (Chronic) Left hemiparesis (Chronic) Poor compliance (Chronic) Disposition: Home Condition: Fair.' Discharge medication: 1. Linezolid TAB* [Zyvox 600 MG TAB*] Oli Lucero MD 600 mg oral twice daily Last Taken: New Rx 2. metroNIDAZOLE TAB* [Flagyl 250 mg TAB*] Oli Lucero MD 500 mg oral three times daily Last Taken: 09/30/18 21:05 500 mg 3. dilTIAZem HCl [Diltiazem HCl] 120 mg oral twice daily Last Taken: 09/30/18 21:05 120 mg 4. Trulicity 1.5 mg oral every day Last Taken: Unknown 5. Toujeo Solostar Pen (NF) 60 units twice daily subcut Last Taken: 09/30/18 21:06 60 units 6. Metoprolol Tartrate TAB* 25 mg oral every day Last Taken: 09/30/18 21:05 25 mg 7. Humalog/Admelog 20 units route before meals and at bedtime Last Taken: Unknown 8. Apixaban* [Eliquis*] 5 mg oral every day Last Taken: Unknown
[2018-10-01] MEDS: Insulin GLARGINE(*) 1 UNITS UNIT SUBCUT SCH (08:40)
[2018-10-01] MEDS: Metoprolol Tartrate TAB* 25 MG PO SCH (08:41)
[2018-10-01] MEDS: metroNIDAZOLE TAB* 250 MG PO SCH (08:41)
[2018-10-01] MEDS: Diltiazem TAB* 60 MG PO SCH (08:41)
[2018-10-01] MEDS: Insulin LISPRO* 1 UNITS UNIT SUBCUT SCH ×4 (08:41→12:33)
[2018-10-01] MEDS: Apixaban* 5 MG TAB PO SCH (08:41)
[2018-10-01] MEDS: Acetaminophen TAB* 325 MG PO PRN (08:53)
--- NOTE | 2018-10-02 13:13 | DS ---
CC: Dr. Carlos Lay DISCHARGE SUMMARY: DATE OF ADMISSION: DATE OF DISCHARGE: DISCHARGE DIAGNOSES: 1. Multiple territory acute cerebrovascular accident. 2. Ectopic placement of PICC line in left subclavian artery with x2 IV infusions of daptomycin. 3. Osteomyelitis of left hallux, on parenteral treatment with daptomycin and metronidazole also unique vicente received x10 treatments with hyperbaric oxygen. 4. Acute comorbidities of severe headache, visual disturbances. SECONDARY DIAGNOSES: 1. Type 2 diabetes mellitus with chronic poor control. 2. History of peripheral neuropathy. 3. Atrial fibrillation. 4. Essential hypertension. 5. Hypertriglyceridemia. 6. Prior right-sided cerebrovascular accident with subtle remaining left hemiparesis, chronic poor c ompliance with psychosocial barriers. DISPOSITION: Home. CONDITION AT DISCHARGE: Fair. HISTORY: Kaleb Kc is a 58-year-old right-handed white male. His presentation is documented in Hugo Cooney's admitting history and physical. In short, he has been treated for 40 days with IV a ntibiotics and 10 treatments with hyperbaric oxygen for osteomyelitis of a left hallux. He has been using daptomycin and this has been managed by Dr. Julisa Dobson. He commenced the IV daptomycin o n 08/16/18. On 09/24/18, he was working on his truck and the PICC line came out. He had a new one p laced and he developed blinding headache and some disorientation and visual changes. He gave himself 2 doses of daptomycin. Visiting nurse on a day of admission noted arterial pulsations in the PICC l ine and sent him to the emergency room. Apparently, the PICC line was removed from his subclavian ar coreen and he was transferred to the [facility] with a diagnosis of cerebrovascular accident . PHYSICAL EXAMINATION: At admission, blood pressure was 138/100, heart rate 99, respiratory rate 22, saturation 98% on room air, temperature 98 degrees Fahrenheit. He had a benign examination. INITIAL DIAGNOSTIC STUDIES: White count 16.7, hemoglobin 17.6, hematocrit 51, platelets 221, normal differential, INR 1.01, APTT 34.4. Chemistry at presentation, abnormals; potassium 3.3, CO2 of 19, g lucose greater than 444, ALT 58. VBGs; pH 7.48, pCO2 of 27, pO2 of 61, base excess -2. Imaging: Chest x-ray; no active cardiopulmonary disease, no PICC line. Brain MRI; restricted diffus ion left cerebellar lobe consistent with acute infarct, additional foci of restricted diffusion, bila teral occipital lobes, right frontal lobe, right thalamus, also consistent with acute infarction, emb olic disease was considered due to distribution of changes in both the anterior and posterior circula tions. INITIAL IMPRESSION: Multiple strokes, embolic in nature, perhaps due to arterial PICC line for neuro logical evaluation, medication to be restarted; osteomyelitis, consider further treatment; atrial fib rillation, holding Eliquis until seen by Neurology. CONSULTATIONS: On 09/28/18, Dr. Diogo Harris from Neurology. Subacute stroke, etiology possibility is cardiac due to atrial fibrillation, patent foramen ovale, arterial PICC line may have had a role. FURTHER IMAGING STUDIES: Carotid duplex on 09/28/18, only 1% to 49% stenosis near the origins of the internal carotids bilaterally. Venous Doppler study, no evidence of left or right lower extremity d eep venous thrombosis. Chest CAT scan on 09/29/18, left internal jugular vein diminutive, likely an anatomic variant. No evidence of stenosis or occlusion of left brachiocephalic vein within the super ior vena cava. A 2.9 low attenuation lesion in right lobe of the liver. On 09/30/18, MRI of left leg osteomyelitis involving distal phalanx of the great toe with suha osteo lysis of the tuft surrounding soft tissue inflammatory change, no evidence of abscess collection. OTHER LAB TESTS: On 09/28/18, triglycerides 293, cholesterol 123, LDL 42, HDL 22.7, vitamin B12 of 5 30, TSH 1.97, free T4 of 0.8, homocysteine 7. C-reactive protein on 09/29/18 of 3.09, on 09/30/18 of 1.57 and on 10/01/18 less than 1. IMMUNOLOGY: GARRETT 0.4, proteinase 3 of 0.2, myeloperoxidase less than 0.2, C3 and C4 within normal colbert its. HOSPITAL COURSE: Kaleb Kc presented with a severe headache, this improved during the course of h is hospital stay and was gone by the day of discharge. He had problems with his vision, which he marlyn cribed as "floaties," these improved also over the course of his hospitalization. He noted that his thinking was a little fuzzy. Other than that, he had remarkably few symptoms or signs of his multipl e territory strokes. His neurological state was stable during his hospitalization. I restarted his E liquis on the basis of his high risk of embolic disease. I got his type 2 diabetes under control. H is long-term control was poor. His A1c was 9.8%. On the day of discharge, he was feeling well, still slightly fuzzy headed, no other focal symptoms of neurological nature. He had tolerated the vancomycin during the hospitalization substituted for the daptomycin he was receiving as an outpatient. He also tolerated reintroduction of the metronidazole. He had no pain in his left hallux. He had no diarrhea. He was eating and drinking well. PHYSICAL EXAMINATION: Vital Signs: Temperature 97.9 degrees Fahrenheit, pulse 71, respirations 16, blood pressure 144/84, oxygen saturation on room air 98%. He had no cyanosis, anemia, jaundice, or c lubbing. His left great toe had some mild swelling. I took a clinical photograph of the ulcer on th e plantar surface, was closed. Cardiovascular System: Pulse regular. Normal character and volume. Venous pressure not elevated. Heart sounds normal. No added sounds or murmurs. No pedal edema. Ped al pulses present. Respiratory System: His chest was clear. Abdomen: No distention, masses, tender ness, or organomegaly. Nervous System: He was alert and oriented x3, walking independently. He had conjugate eye movements. Visual king are full to confrontation. He had no internuclear ophthalmop legia. Cranial nerves II through XII intact. Speech was intact. Arms and legs, slight subtle left h emiparesis, which is chronic. No other focal deficits. His finger-to- nose test was normal. ASSESSMENT AND PLAN: 1. Multiple territory cerebrovascular accident. The exact pathogenesis of the stroke is not clear, it involves both the anterior and posterior circulations. My own suspicion is that he had an ectopic ally placed PICC line in his left subclavian artery. He had given himself manually by injection 2 do ses as an outpatient of daptomycin which was associated with severe headache, I suspect this caused a rterial spasm and that the susceptible territories underwent infarction; however, this is supposition . There are other possibilities, which have been mentioned by Neurology, which include the fact that he did not take his Eliquis for 2 days after this PICC line was replaced, this may have led to an em bolic strokes, which could have been from his left atrium. He also has a PFO on echocardiogram and t his may have led to paradoxical emboli, though there was no evidence of deep venous thrombosis. I no te that his carotids were more or less clear, making embolism from there less likely. He has had a g ood recovery from this both in terms of his headache and functionally, he appears to have no new jakub r deficits, perhaps some subtle changes in his vision and cognition. He is fit and safe to go home w here he lives independently and will follow up with me as an outpatient as I am his primary care prov ider and his in home nanny. 2. Osteomyelitis, left great toe. I placed him on linezolid 600 mg twice daily and metronidazole 50 0 mg t.i.d. Linezolid has excellent penetration of bone and is close to the equivalence of an IV britt khris. He will follow up with Dr. Dobson as an outpatient. I reviewed the left hallux with Radiolog y. They did not have a comparison film from prior to the treatment; however, it is consistent with o ngoing osteomyelitis and he may still end up with an amputation. The patient understands this. 3. Uncontrolled type 2 diabetes mellitus. In the hospital, we established that he needs higher dose s of both bolus insulin and perhaps slightly lower doses of basal insulin. I discussed the changes w ith the patient for his outpatient management. 4. Oral anticoagulation. He is now back on his Eliquis. 5. Atrial fibrillation. His rate is controlled. 6. Essential hypertension. This is controlled. 7. He has mild hypertriglyceridemia, will remain on his lipid treatment. 8. History of cerebrovascular accident with mild left hemiparesis. This is stable. 9. Poor compliance. He has been part of care coordination by [facility] and as an outpatient, we will jamison tablish this. He is to have a transition of care visit at my office within a week. DISCHARGE MEDICATIONS: 1. Linezolid 600 mg p.o. b.i.d. 2. Metronidazole 500 mg t.i.d. 3. Diltiazem 120 mg daily. 4. Trulicity (dulaglutide) 1.5 mg every weekly. 5. Toujeo 90 units daily. 6. Metoprolol 25 mg daily. 7. Humalog 20 units a.c. 8. Apixaban 5 mg twice daily. He has an outpatient transition of care visit that is booked. [id number]/[facility] #: [id number]
== END 2018-10-01 12:58 | disposition home or self-care (01) | DRG 45 ==
LOC: ED 20:49 → ICU 09-28 05:46 → MEDTELE 09-28 19:00
PROVIDERS: ADMIT Internal Medicine; ATTEND Internal Medicine
DX: I63.9 Cerebral infarction, unspecified (principal); M86.172 Other acute osteomyelitis, left ankle and foot; I69.954 Hemiplegia and hemiparesis following unspecified cerebrovascular disease affecting left non-dominant side; Q21.1 Atrial septal defect; R51 Headache; E11.42 Type 2 diabetes mellitus with diabetic polyneuropathy; I10 Essential (primary) hypertension; E78.1 Pure hyperglyceridemia; R41.0 Disorientation, unspecified; I65.23 Occlusion and stenosis of bilateral carotid arteries; K76.89 Other specified diseases of liver; E11.65 Type 2 diabetes mellitus with hyperglycemia; M21.372 Foot drop, left foot; H53.9 Unspecified visual disturbance; I48.2 Chronic atrial fibrillation; E87.6 Hypokalemia; R00.8 Other abnormalities of heart beat; Z91.19 Patient's noncompliance with other medical treatment and regimen; Z82.3 Family history of stroke; Z82.49 Family history of ischemic heart disease and other diseases of the circulatory system; Z88.8 Allergy status to other drugs, medicaments and biological substances; Z83.3 Family history of diabetes mellitus; Z53.20 Procedure and treatment not carried out because of patient's decision for unspecified reasons; Z87.891 Personal history of nicotine dependence
CPT/HCPCS: 36415; 70496; 70498; 70544; 70551; 71045; 71260; 80048; 80053; 80061; 80202; 82607; 82746; 82803; 82947; 83036; 83090; 83516; 84439; 84443; 85025; 85610; 85730; 86038; 86140; 86160; 87641; 93005; 93306; 93880; 93970; 99285; A9270-GY; A9579; C8929; G8978-GP-CH; G8979-GP-CH; G8980-GP-CH; J3370; Q9967

== ENCOUNTER 2020-08-25 12:07 | Inpatient (IN) ==
[2020-08-25] MEDS ORDERED: Vancomycin 1,000 MG in NS 0.9% 250 ml 250 ML IVPB ONE ×2 (16:48→20:51)
[2020-08-25] MEDS ORDERED: Piperacillin/Tazobac ADVAN 3.375 GM in NS 0.9% 100 ml BAG 100 ML IVPB ONE (16:48)
[2020-08-25] MEDS ORDERED: NS 0.9% 1000 ml BAG 1,000 ML IV ONE (16:49)
[2020-08-25 17:02] LABS: ABS Basophils 0.1 10^3/ul (0-0.2); ABS Lymphocytes 2.1 10^3/ul (1.0-4.8); ABS Monocytes 0.7 10^3/ul (0-0.8); ABS Neutrophils 10.8 10^3/ul (1.5-7.7); Eosinophil % 0.3 %; Hematocrit 47 % (42-52); Lymphocyte % 15.4 %; Mean Corpuscular HGB Conc 34 g/dL (31-36); Mean Corpuscular Hemoglobin 32 pg (27-31); Mean Corpuscular Volume 94 fL (80-94); Mean Platelet Volume 8.7 fL (7.4-10.4); Nucleated Red Blood Cells % 0.1; Platelet Count 473 10^3/uL (150-450); Red Blood Count 5.04 10^6 /uL (4.18-5.48); Red Cell Distribution Width 13 % (10-15); White Blood Count 13.7 10^3/uL (3.5-10.8)
[2020-08-25 17:19] LABS: Albumin 3.7 g/dL (3.2-5.2); Albumin/Globulin Ratio 0.7 (1-3); C Reactive Protein 68.23 mg/L (<8.01); Calcium 10.1 mg/dL (8.6-10.3); EGFR African American 103.5 (>60); EGFR Non-African American 85.5 (>60); Potassium 4.1 mmol/L (3.5-5.0); Total Bilirubin 0.5 mg/dL (0.2-1.0); Total Protein 8.7 g/dL (6.4-8.9); Troponin I 0.01 ng/mL (<0.03)
[2020-08-25 17:20] LABS: Activated Partial Thrombo Time 36.7 seconds (26.0-38.0); INR 1.4 (0.86-1.15)
[2020-08-25] MEDS: Lactated Ringers 1000 ml BAG 1,000 ML IV SCH ×2 (19:20→20:28)
[2020-08-25] MEDS ORDERED: Dextrose 50% Syringe 50 ml 25 GM/50 ML SYRINGE IV PUSH PRN ×2 (20:48→21:25)
[2020-08-25] MEDS ORDERED: Vancomycin per Pharmacy 1 EA NOTE FOLLOW UP SCH (21:00)
[2020-08-25 21:30] LABS: Urine Appearance Clear; Urine Bilirubin Negative (Negative); Urine Blood 3+ (Negative); Urine Color Yellow; Urine Glucose 3+(>=500 mg/dL) (Negative); Urine Ketones Trace (Negative); Urine Nitrite Negative (Negative); Urine Protein 2+(100 mg/dL) (Negative); Urine Specific Gravity 1.025 (1.002-1.030); Urine Urobilinogen Negative (Negative)
[2020-08-25 21:32] LABS: Urine Bacteria Absent (Absent); Urine Red Blood Cell 2+(6-10/hpf) (Absent); Urine Squamous Epithelial Cell Present (Absent); Urine White Blood Cell Trace(0-5/hpf) (Absent)
[2020-08-25] MEDS ORDERED: Cefepime 2 GM IV - ED ONCE IV ONE (22:00)
[2020-08-25] MEDS ORDERED: Vancomycin 500 MG in NS 0.9% 250 ML IVPB ONE (22:30)
[2020-08-26 06:49] LABS: ABS Basophils 0.1 10^3/ul (0-0.2); ABS Eosinophils 0.1 10^3/ul (0-0.6); ABS Lymphocytes 2.1 10^3/ul (1.0-4.8); ABS Monocytes 0.7 10^3/ul (0-0.8); ABS Neutrophils 8.5 10^3/ul (1.5-7.7); Eosinophil % 0.6 %; Hematocrit 37 % (42-52); Hemoglobin 12.9 g/dL (14.0-18.0); Lymphocyte % 18.4 %; Mean Corpuscular HGB Conc 35 g/dL (31-36); Mean Corpuscular Hemoglobin 32 pg (27-31); Mean Corpuscular Volume 92 fL (80-94); Mean Platelet Volume 8.7 fL (7.4-10.4); Platelet Count 343 10^3/uL (150-450); Red Blood Count 4.03 10^6 /uL (4.18-5.48); Red Cell Distribution Width 13 % (10-15); White Blood Count 11.5 10^3/uL (3.5-10.8)
[2020-08-26 07:03] LABS: Calcium 8.6 mg/dL (8.6-10.3); EGFR African American 138.3 (>60); EGFR Non-African American 114.3 (>60); Potassium 3.6 mmol/L (3.5-5.0)
[2020-08-26] MEDS: Vancomycin 1,250 MG in NS 0.9% 250 ml 250 ML IVPB SCH ×2 (08:48→20:40)
[2020-08-26] MEDS: Insulin GLARGINE 100 un/ml 10 ml VIAL SUBCUT SCH (08:50)
[2020-08-26] MEDS: Cefepime 2 GM in Dextrose 2 GM/50 ML BAG IV SCH (12:16)
[2020-08-27] MEDS: Cefepime 2 GM in Dextrose 2 GM/50 ML BAG IV SCH ×2 (00:02→12:43)
[2020-08-27 05:59] LABS: ABS Basophils 0.1 10^3/ul (0-0.2); ABS Eosinophils 0.1 10^3/ul (0-0.6); ABS Lymphocytes 1.9 10^3/ul (1.0-4.8); ABS Monocytes 0.6 10^3/ul (0-0.8); ABS Neutrophils 7.2 10^3/ul (1.5-7.7); Hematocrit 39 % (42-52); Hemoglobin 13.5 g/dL (14.0-18.0); Lymphocyte % 19.4 %; Mean Corpuscular HGB Conc 34 g/dL (31-36); Mean Corpuscular Hemoglobin 32 pg (27-31); Mean Corpuscular Volume 94 fL (80-94); Mean Platelet Volume 8.9 fL (7.4-10.4); Platelet Count 337 10^3/uL (150-450); Red Cell Distribution Width 13 % (10-15); White Blood Count 9.8 10^3/uL (3.5-10.8)
[2020-08-27 06:14] LABS: Calcium 8.9 mg/dL (8.6-10.3); EGFR African American 171.8 (>60); Potassium 3.6 mmol/L (3.5-5.0)
[2020-08-27] MEDS ORDERED: Vancomycin Trough Check NOTE FOLLOW UP ONE (08:30)
[2020-08-27] MEDS: Insulin GLARGINE 100 un/ml 10 ml VIAL SUBCUT SCH (09:00)
[2020-08-27] MEDS: Vancomycin 1,250 MG in NS 0.9% 250 ml 250 ML IVPB SCH ×2 (11:50→17:26)
[2020-08-28] MEDS: Vancomycin 1,250 MG in NS 0.9% 250 ml 250 ML IVPB SCH ×3 (02:01→18:04)
[2020-08-28] MEDS: Insulin GLARGINE 100 un/ml 10 ml VIAL SUBCUT SCH (09:09)
[2020-08-28 12:02] LABS: C Reactive Protein 19.58 mg/L (<8.01)
[2020-08-28] MEDS ORDERED: Gadoteridol (CONTRAST) 279.3 MG/ML 10 ML IV ONE (17:44)
[2020-08-28] MEDS: Enoxaparin 80 MG/0.8 ML SYR SUBCUT SCH (20:04)
[2020-08-29] MEDS: Vancomycin 1,250 MG in NS 0.9% 250 ml 250 ML IVPB SCH ×2 (02:38→12:00)
[2020-08-29] MEDS ORDERED: Senna TAB 8.6 mg TAB PO PRN (07:11)
[2020-08-29] MEDS ORDERED: Vancomycin Trough Check NOTE FOLLOW UP ONE (09:30)
[2020-08-29] MEDS ORDERED: Morphine 2 MG/ML SYRINGE ONE (09:32)
[2020-08-29] MEDS: Insulin GLARGINE 100 un/ml 10 ml VIAL SUBCUT SCH (10:24)
[2020-08-29 10:38] LABS: EGFR African American 153.3 (>60); EGFR Non-African American 126.7 (>60)
[2020-08-29 11:01] LABS: Vancomycin Trough 15.5 mcg/mL
[2020-08-29] MEDS: Vancomycin 1000 MG in NS 0.9% 250 ML IVPB SCH ×3 (12:10→19:47)
[2020-08-29 13:31] LABS: Body Fluid Source Synovial Fluid
[2020-08-29 16:45] LABS: Body Fluid Appearance Bloody; Body Fluid Mono 5 %; Body Fluid Total Cells Counted 200
[2020-08-29 16:46] LABS: Body Fluid Color Pink
[2020-08-29 17:02] LABS: Body Fluid WBC 698 /mcL
[2020-08-29] MEDS: Enoxaparin 80 MG/0.8 ML SYR SUBCUT SCH (19:47)
[2020-08-30] MEDS: Vancomycin 1000 MG in NS 0.9% 250 ML IVPB SCH ×3 (04:48→21:13)
[2020-08-30 06:22] LABS: ABS Basophils 0.1 10^3/ul (0-0.2); ABS Monocytes 0.5 10^3/ul (0-0.8); ABS Neutrophils 5.7 10^3/ul (1.5-7.7); Eosinophil % 0.5 %; Hematocrit 39 % (42-52); Hemoglobin 13.7 g/dL (14.0-18.0); Mean Corpuscular HGB Conc 35 g/dL (31-36); Mean Corpuscular Hemoglobin 33 pg (27-31); Mean Corpuscular Volume 93 fL (80-94); Platelet Count 300 10^3/uL (150-450); Red Blood Count 4.16 10^6 /uL (4.18-5.48); Red Cell Distribution Width 13 % (10-15); White Blood Count 8.4 10^3/uL (3.5-10.8)
[2020-08-30 06:34] LABS: Calcium 8.5 mg/dL (8.6-10.3); EGFR African American 162.1 (>60); EGFR Non-African American 133.9 (>60); Potassium 3.9 mmol/L (3.5-5.0)
[2020-08-30] MEDS: Insulin GLARGINE 100 un/ml 10 ml VIAL SUBCUT SCH (07:19)
[2020-08-30] MEDS ORDERED: Insulin GLARGINE 100 un/ml 10 ml VIAL SUBCUT ONE (09:59)
[2020-08-30] MEDS ORDERED: Lidocaine 2% PF 5 ML VIAL ONE (15:32)
[2020-08-30] MEDS ORDERED: Propofol 10 MG/ML 20 ML BTL ONE (15:32)
[2020-08-30] MEDS ORDERED: Rocuronium 50 mg VIAL 10 mg/ml 5 ml VIAL (50 mg) ONE ×2 (15:51→17:14)
[2020-08-30] MEDS ORDERED: fentaNYL 250 mcg/5 ml 50 MCG/ML 5 ml VIAL (250 MCG) ONE (15:54)
[2020-08-30] MEDS ORDERED: Bupivacaine 0.5% SDV PF 30ML VIAL ONE (16:56)
[2020-08-30] MEDS ORDERED: Ondansetron 4 mg VIAL 2 MG/ML 2 ml VIAL ONE (17:15)
[2020-08-30] MEDS ORDERED: fentaNYL 100 mcg/2 ml 50 MCG/ML VIAL IV PRN (17:38)
[2020-08-30] MEDS ORDERED: DiMENhydriNATE IV 50 mg/ml 1 ml VIAL IV PUSH PRN (17:38)
[2020-08-30] MEDS ORDERED: diPHENhydraMINE IV 50 MG/ML 1 ml VIAL (BENADRYL) IV PRN (17:38)
[2020-08-30] MEDS ORDERED: Naloxone 0.4 mg VIAL 0.4 mg/ml 1 ml VIAL IV PRN ×2 (17:38→18:57)
[2020-08-30] MEDS ORDERED: fentaNYL 100 mcg/2 ml 50 MCG/ML VIAL ONE (19:00)
[2020-08-30] MEDS: fentaNYL 100 mcg/2 ml 50 MCG/ML VIAL IV PRN ×3 (19:02→19:18)
[2020-08-31] MEDS: Vancomycin 1000 MG in NS 0.9% 250 ML IVPB SCH ×3 (04:15→20:04)
[2020-08-31 06:47] LABS: ABS Basophils 0.1 10^3/ul (0-0.2); ABS Monocytes 0.7 10^3/ul (0-0.8); ABS Neutrophils 10.2 10^3/ul (1.5-7.7); Eosinophil % 0.2 %; Hematocrit 38 % (42-52); Lymphocyte % 15.4 %; Mean Corpuscular HGB Conc 34 g/dL (31-36); Mean Corpuscular Hemoglobin 32 pg (27-31); Mean Corpuscular Volume 93 fL (80-94); Mean Platelet Volume 8.8 fL (7.4-10.4); Platelet Count 330 10^3/uL (150-450); Red Blood Count 4.11 10^6 /uL (4.18-5.48); Red Cell Distribution Width 13 % (10-15); White Blood Count 13.1 10^3/uL (3.5-10.8)
[2020-08-31 07:03] LABS: C Reactive Protein 17.2 mg/L (<8.01); Calcium 8.2 mg/dL (8.6-10.3); EGFR African American 150.6 (>60); EGFR Non-African American 124.5 (>60); Magnesium 1.6 mg/dL (1.9-2.7); Potassium 3.6 mmol/L (3.5-5.0)
[2020-08-31] MEDS: Insulin GLARGINE 100 un/ml 10 ml VIAL SUBCUT SCH (10:50)
[2020-08-31] MEDS ORDERED: Vancomycin Trough Check NOTE FOLLOW UP ONE (12:00)
[2020-09-01] MEDS: Vancomycin 1000 MG in NS 0.9% 250 ML IVPB SCH ×3 (04:21→19:44)
[2020-09-01 06:16] LABS: ABS Basophils 0.1 10^3/ul (0-0.2); ABS Lymphocytes 2.1 10^3/ul (1.0-4.8); ABS Monocytes 0.9 10^3/ul (0-0.8); ABS Neutrophils 7.7 10^3/ul (1.5-7.7); Eosinophil % 0.5 %; Hematocrit 35 % (42-52); Hemoglobin 12.3 g/dL (14.0-18.0); Lymphocyte % 19.4 %; Mean Corpuscular HGB Conc 35 g/dL (31-36); Mean Corpuscular Hemoglobin 32 pg (27-31); Mean Corpuscular Volume 93 fL (80-94); Mean Platelet Volume 9.2 fL (7.4-10.4); Platelet Count 284 10^3/uL (150-450); Red Blood Count 3.79 10^6 /uL (4.18-5.48); Red Cell Distribution Width 13 % (10-15); White Blood Count 10.8 10^3/uL (3.5-10.8)
[2020-09-01 06:34] LABS: C Reactive Protein 82.33 mg/L (<8.01); Calcium 8.4 mg/dL (8.6-10.3); EGFR African American 162.1 (>60); EGFR Non-African American 133.9 (>60); Potassium 3.4 mmol/L (3.5-5.0)
[2020-09-01 07:27] LABS: Magnesium 1.6 mg/dL (1.9-2.7)
[2020-09-01] MEDS: Insulin GLARGINE 100 un/ml 10 ml VIAL SUBCUT SCH (08:34)
[2020-09-01] MEDS ORDERED: Potassium Chlor 20 meq TAB.ER PO ONE (13:15)
[2020-09-01] MEDS ORDERED: Insulin GLARGINE 100 un/ml 10 ml VIAL SUBCUT ONE (15:35)
[2020-09-02] MEDS: Vancomycin 1000 MG in NS 0.9% 250 ML IVPB SCH ×3 (04:15→20:05)
[2020-09-02] MEDS ORDERED: Insulin GLARGINE 100 un/ml 10 ml VIAL SUBCUT SCH (09:00)
[2020-09-02] MEDS ORDERED: Magnesium Sulfate 2 gm BAG 2 GM/50 ML BAG IVPB ONE (09:31)
[2020-09-03] MEDS: Vancomycin 1000 MG in NS 0.9% 250 ML IVPB SCH ×4 (03:58→23:44)
[2020-09-03 04:37] LABS: ABS Basophils 0.1 10^3/ul (0-0.2); ABS Eosinophils 0.1 10^3/ul (0-0.6); ABS Lymphocytes 2.1 10^3/ul (1.0-4.8); ABS Monocytes 0.5 10^3/ul (0-0.8); ABS Neutrophils 5.7 10^3/ul (1.5-7.7); Eosinophil % 1.2 %; Hematocrit 37 % (42-52); Hemoglobin 12.4 g/dL (14.0-18.0); Lymphocyte % 24.9 %; Mean Corpuscular HGB Conc 34 g/dL (31-36); Mean Corpuscular Hemoglobin 32 pg (27-31); Mean Corpuscular Volume 94 fL (80-94); Mean Platelet Volume 8.7 fL (7.4-10.4); Platelet Count 297 10^3/uL (150-450); Red Blood Count 3.93 10^6 /uL (4.18-5.48); Red Cell Distribution Width 13 % (10-15); White Blood Count 8.5 10^3/uL (3.5-10.8)
[2020-09-03 04:51] LABS: Calcium 8.3 mg/dL (8.6-10.3); EGFR African American 175.3 (>60); EGFR Non-African American 144.8 (>60); Magnesium 1.8 mg/dL (1.9-2.7); Potassium 3.4 mmol/L (3.5-5.0)
[2020-09-03] MEDS ORDERED: Potassium Chlor 20 meq TAB.ER PO ONE (07:22)
[2020-09-03] MEDS ORDERED: Magnesium Sulfate 2 gm BAG 2 GM/50 ML BAG IVPB ONE (07:22)
[2020-09-03] MEDS: Insulin GLARGINE 100 un/ml 10 ml VIAL SUBCUT SCH (08:38)
[2020-09-03] MEDS ORDERED: Vancomycin Trough Check NOTE FOLLOW UP ONE (11:30)
[2020-09-04] MEDS: Insulin GLARGINE 100 un/ml 10 ml VIAL SUBCUT SCH (08:28)
[2020-09-04] MEDS: Vancomycin 1000 MG in NS 0.9% 250 ML IVPB SCH ×3 (08:28→23:47)
[2020-09-05 06:23] LABS: Calcium 8.6 mg/dL (8.6-10.3); Potassium 3.6 mmol/L (3.5-5.0)
[2020-09-05 06:28] LABS: EGFR African American 159.1 (>60); EGFR Non-African American 131.5 (>60)
[2020-09-05 06:47] LABS: ABS Basophils 0.1 10^3/ul (0-0.2); ABS Eosinophils 0.1 10^3/ul (0-0.6); ABS Lymphocytes 2.4 10^3/ul (1.0-4.8); ABS Monocytes 0.5 10^3/ul (0-0.8); ABS Neutrophils 5.6 10^3/ul (1.5-7.7); Eosinophil % 1.2 %; Hematocrit 37 % (42-52); Hemoglobin 12.6 g/dL (14.0-18.0); Lymphocyte % 27.3 %; Mean Corpuscular HGB Conc 34 g/dL (31-36); Mean Corpuscular Hemoglobin 33 pg (27-31); Mean Corpuscular Volume 95 fL (80-94); Mean Platelet Volume 8.9 fL (7.4-10.4); Platelet Count 304 10^3/uL (150-450); Red Blood Count 3.89 10^6 /uL (4.18-5.48); Red Cell Distribution Width 13 % (10-15); White Blood Count 8.8 10^3/uL (3.5-10.8)
[2020-09-05] MEDS ORDERED: Dextrose 50% Syringe 50 ml 25 GM/50 ML SYRINGE IV PUSH PRN (07:51)
[2020-09-05] MEDS: Vancomycin 1000 MG in NS 0.9% 250 ML IVPB SCH (08:06)
[2020-09-05] MEDS: Insulin GLARGINE 100 un/ml 10 ml VIAL SUBCUT SCH (08:07)
[2020-09-05] MEDS: Vancomycin 1,250 MG in NS 0.9% 250 ml 250 ML IVPB SCH (16:30)
[2020-09-06] MEDS: Vancomycin 1,250 MG in NS 0.9% 250 ml 250 ML IVPB SCH ×3 (00:29→16:34)
[2020-09-06] MEDS: Insulin GLARGINE 100 un/ml 10 ml VIAL SUBCUT SCH (10:07)
[2020-09-07] MEDS: Vancomycin 1,250 MG in NS 0.9% 250 ml 250 ML IVPB SCH ×3 (00:52→16:31)
[2020-09-07] MEDS ORDERED: Vancomycin Trough Check NOTE FOLLOW UP ONE (07:30)
[2020-09-07 07:53] LABS: EGFR Non-African American 118.2 (>60)
[2020-09-07 08:21] LABS: Vancomycin Trough 18.3 mcg/mL
[2020-09-07] MEDS: Insulin GLARGINE 100 un/ml 10 ml VIAL SUBCUT SCH (09:29)
[2020-09-08] MEDS: Vancomycin 1,250 MG in NS 0.9% 250 ml 250 ML IVPB SCH ×3 (00:13→16:46)
[2020-09-08] MEDS: Insulin GLARGINE 100 un/ml 10 ml VIAL SUBCUT SCH (08:48)
[2020-09-09] MEDS: Vancomycin 1,250 MG in NS 0.9% 250 ml 250 ML IVPB SCH ×2 (00:33→09:05)
[2020-09-09 05:36] LABS: Calcium 9.2 mg/dL (8.6-10.3); EGFR African American 140.6 (>60); EGFR Non-African American 116.2 (>60); Potassium 3.7 mmol/L (3.5-5.0)
[2020-09-09] MEDS ORDERED: Vancomycin Trough Check NOTE FOLLOW UP ONE (07:30)
[2020-09-09 08:04] LABS: EGFR African American 145.4 (>60); EGFR Non-African American 120.2 (>60)
[2020-09-09 08:23] LABS: Vancomycin Trough 21.3 mcg/mL
[2020-09-09] MEDS: Vancomycin 1000 MG in NS 0.9% 250 ML IVPB SCH ×2 (08:33→16:29)
[2020-09-09] MEDS: Insulin GLARGINE 100 un/ml 10 ml VIAL SUBCUT SCH (09:39)
[2020-09-10] MEDS: Vancomycin 1000 MG in NS 0.9% 250 ML IVPB SCH ×3 (00:21→16:37)
[2020-09-10 06:48] LABS: Calcium 9.2 mg/dL (8.6-10.3); EGFR African American 129.7 (>60); EGFR Non-African American 107.2 (>60); Potassium 3.7 mmol/L (3.5-5.0)
[2020-09-10] MEDS: Insulin GLARGINE 100 un/ml 10 ml VIAL SUBCUT SCH (08:33)
[2020-09-10 11:19] VITALS: BP 136/72
[2020-09-11] MEDS ORDERED: Vancomycin Trough Check NOTE FOLLOW UP ONE (08:00)
[2020-09-11 08:12] LABS: C Reactive Protein 4.31 mg/L (<8.01)
== END 2020-09-10 18:28 | disposition home or self-care (01) | DRG 710 ==
LOC: ED 12:07 → SSU 22:29
PROVIDERS: ADMIT Internal Medicine; ATTEND Student in an Organized Health Care Education/Training Program

== ENCOUNTER 2020-09-11 19:30 | Observation (INO) ==
[2020-09-12 02:52] LABS: Rapid COVID-19 Molecular Undetected (Undetected)
[2020-09-12] MEDS ORDERED: Dextrose 50% Syringe 50 ml 25 GM/50 ML SYRINGE IV PUSH PRN ×2 (02:56→07:43)
[2020-09-12] MEDS ORDERED: Alteplase (CATHFLO) 2 MG VIAL IV ONE (05:34)
[2020-09-12 08:13] LABS: Hematocrit 36 % (42-52); Hemoglobin 12.2 g/dL (14.0-18.0); Mean Corpuscular HGB Conc 34 g/dL (31-36); Mean Corpuscular Hemoglobin 33 pg (27-31); Mean Corpuscular Volume 95 fL (80-94); Mean Platelet Volume 8.3 fL (7.4-10.4); Platelet Count 270 10^3/uL (150-450); Red Blood Count 3.76 10^6 /uL (4.18-5.48); Red Cell Distribution Width 14 % (10-15)
[2020-09-12 08:28] LABS: Calcium 8.8 mg/dL (8.6-10.3); EGFR African American 125.8 (>60); EGFR Non-African American 103.9 (>60); Magnesium 1.8 mg/dL (1.9-2.7); Potassium 4.1 mmol/L (3.5-5.0)
[2020-09-12] MEDS ORDERED: DAPTOmycin SDV 500 MG in NS 0.9% 50 ML 50 ML IVPB SCH (09:00)
[2020-09-12] MEDS: Insulin GLARGINE 100 un/ml 10 ml VIAL SUBCUT SCH (09:04)
[2020-09-12] MEDS ORDERED: Vancomycin per Pharmacy 1 EA NOTE FOLLOW UP PRN (10:37)
[2020-09-12] MEDS: Vancomycin 1000 MG in NS 0.9% 250 ML IVPB SCH (22:11)
[2020-09-13] MEDS: Vancomycin 1000 MG in NS 0.9% 250 ML IVPB SCH ×3 (05:40→21:16)
[2020-09-13 05:59] LABS: ABS Basophils 0.1 10^3/ul (0-0.2); ABS Eosinophils 0.2 10^3/ul (0-0.6); ABS Lymphocytes 2.6 10^3/ul (1.0-4.8); ABS Monocytes 0.4 10^3/ul (0-0.8); ABS Neutrophils 3.8 10^3/ul (1.5-7.7); Eosinophil % 2.8 %; Hematocrit 36 % (42-52); Hemoglobin 12.7 g/dL (14.0-18.0); Lymphocyte % 36.4 %; Mean Corpuscular HGB Conc 35 g/dL (31-36); Mean Corpuscular Hemoglobin 33 pg (27-31); Mean Corpuscular Volume 94 fL (80-94); Mean Platelet Volume 8.5 fL (7.4-10.4); Platelet Count 283 10^3/uL (150-450); Red Blood Count 3.89 10^6 /uL (4.18-5.48); Red Cell Distribution Width 14 % (10-15); White Blood Count 7.2 10^3/uL (3.5-10.8)
[2020-09-13 06:08] LABS: Albumin 3.3 g/dL (3.2-5.2); Albumin/Globulin Ratio 0.9 (1-3); C Reactive Protein 8.8 mg/L (<8.01); Direct Bilirubin 0.1 mg/dL (0.03-0.18); EGFR Non-African American 118.2 (>60); Globulin 3.5 g/dL (2-4); Indirect Bilirubin 0.3 mg/dL (0.3-1.0); Potassium 3.7 mmol/L (3.5-5.0); Total Bilirubin 0.4 mg/dL (0.2-1.0); Total Protein 6.8 g/dL (6.4-8.9)
[2020-09-13] MEDS: Insulin GLARGINE 100 un/ml 10 ml VIAL SUBCUT SCH (08:13)
[2020-09-14] MEDS ORDERED: Vancomycin Trough Check NOTE FOLLOW UP ONE (05:30)
[2020-09-14 06:23] LABS: ABS Basophils 0.1 10^3/ul (0-0.2); ABS Eosinophils 0.2 10^3/ul (0-0.6); ABS Lymphocytes 2.5 10^3/ul (1.0-4.8); ABS Monocytes 0.5 10^3/ul (0-0.8); ABS Neutrophils 4.9 10^3/ul (1.5-7.7); Eosinophil % 2.1 %; Hematocrit 37 % (42-52); Hemoglobin 12.9 g/dL (14.0-18.0); Lymphocyte % 30.2 %; Mean Corpuscular HGB Conc 35 g/dL (31-36); Mean Corpuscular Hemoglobin 33 pg (27-31); Mean Corpuscular Volume 95 fL (80-94); Mean Platelet Volume 8.8 fL (7.4-10.4); Platelet Count 297 10^3/uL (150-450); Red Blood Count 3.92 10^6 /uL (4.18-5.48); Red Cell Distribution Width 14 % (10-15); White Blood Count 8.2 10^3/uL (3.5-10.8)
[2020-09-14 06:42] LABS: C Reactive Protein 4.62 mg/L (<8.01); EGFR African American 133.8 (>60); EGFR Non-African American 110.6 (>60)
[2020-09-14 07:02] LABS: Vancomycin Trough 12.2 mcg/mL
[2020-09-14] MEDS: Vancomycin 1000 MG in NS 0.9% 250 ML IVPB SCH (07:22)
[2020-09-14] MEDS: Insulin GLARGINE 100 un/ml 10 ml VIAL SUBCUT SCH (08:53)
[2020-09-14 11:16] VITALS: BP 137/79
[2020-09-14] MEDS ORDERED: Vancomycin 1,500 MG in NS 0.9% 250 ml 250 ML IVPB ONE (14:00)
[2020-09-15] MEDS ORDERED: Vancomycin 1,500 MG in NS 0.9% 250 ml 250 ML IVPB SCH (06:00)
== END 2020-09-14 12:00 | disposition swing bed (61) ==
LOC: ED 19:30 → INTOOBSV 09-12 02:31 → SSU 09-12 02:31
PROVIDERS: ADMIT Internal Medicine; ATTEND Hospitalist

== ENCOUNTER 2020-09-14 11:49 | Inpatient (IN) ==
[2020-09-14] MEDS ORDERED: Vancomycin per Pharmacy 1 EA NOTE FOLLOW UP PRN (13:31)
[2020-09-14] MEDS ORDERED: Vancomycin 1,000 MG in NS 0.9% 250 ml 250 ML IVPB SCH (14:00)
[2020-09-14] MEDS ORDERED: Vancomycin 1,500 MG in NS 0.9% 250 ml 250 ML IVPB ONE (14:00)
[2020-09-15] MEDS: Vancomycin 1,500 MG in NS 0.9% 250 ml 250 ML IVPB SCH ×2 (05:30→17:52)
[2020-09-15] MEDS: Insulin GLARGINE 100 un/ml 10 ml VIAL SUBCUT SCH (08:12)
[2020-09-16] MEDS: Vancomycin 1,500 MG in NS 0.9% 250 ml 250 ML IVPB SCH ×2 (06:05→17:57)
[2020-09-16] MEDS: Insulin GLARGINE 100 un/ml 10 ml VIAL SUBCUT SCH (09:12)
[2020-09-17] MEDS ORDERED: Vancomycin Trough Check NOTE FOLLOW UP ONE (05:30)
[2020-09-17 06:48] LABS: EGFR African American 131.7 (>60); EGFR Non-African American 108.9 (>60)
[2020-09-17 07:01] LABS: Vancomycin Trough 13.4 mcg/mL
[2020-09-17] MEDS: Vancomycin 1,500 MG in NS 0.9% 250 ml 250 ML IVPB SCH ×2 (08:17→17:13)
[2020-09-17] MEDS: Insulin GLARGINE 100 un/ml 10 ml VIAL SUBCUT SCH (09:23)
[2020-09-18] MEDS: Vancomycin 1,500 MG in NS 0.9% 250 ml 250 ML IVPB SCH ×2 (05:52→17:14)
[2020-09-18] MEDS: Insulin GLARGINE 100 un/ml 10 ml VIAL SUBCUT SCH (08:27)
[2020-09-19] MEDS: Vancomycin 1,500 MG in NS 0.9% 250 ml 250 ML IVPB SCH ×2 (05:33→20:58)
[2020-09-19] MEDS: Insulin GLARGINE 100 un/ml 10 ml VIAL SUBCUT SCH (09:02)
[2020-09-19] MEDS ORDERED: Alteplase (CATHFLO) 2 MG VIAL IV ONE (17:14)
[2020-09-20] MEDS: Vancomycin 1,500 MG in NS 0.9% 250 ml 250 ML IVPB SCH ×2 (08:23→20:42)
[2020-09-20] MEDS: Insulin GLARGINE 100 un/ml 10 ml VIAL SUBCUT SCH (08:25)
[2020-09-21] MEDS: Vancomycin 1,500 MG in NS 0.9% 250 ml 250 ML IVPB SCH ×2 (08:48→21:25)
[2020-09-21] MEDS: Insulin GLARGINE 100 un/ml 10 ml VIAL SUBCUT SCH (08:51)
[2020-09-22 05:00] LABS: ABS Basophils 0.1 10^3/ul (0-0.2); ABS Eosinophils 0.2 10^3/ul (0-0.6); ABS Lymphocytes 2.3 10^3/ul (1.0-4.8); ABS Monocytes 0.7 10^3/ul (0-0.8); ABS Neutrophils 6.2 10^3/ul (1.5-7.7); Eosinophil % 2.2 %; Hematocrit 38 % (42-52); Hemoglobin 12.7 g/dL (14.0-18.0); Lymphocyte % 24.4 %; Mean Corpuscular HGB Conc 34 g/dL (31-36); Mean Corpuscular Hemoglobin 33 pg (27-31); Mean Corpuscular Volume 97 fL (80-94); Mean Platelet Volume 9.4 fL (7.4-10.4); Platelet Count 278 10^3/uL (150-450); Red Blood Count 3.89 10^6 /uL (4.18-5.48); Red Cell Distribution Width 15 % (10-15); White Blood Count 9.6 10^3/uL (3.5-10.8)
[2020-09-22 05:18] LABS: Albumin 3.4 g/dL (3.2-5.2); C Reactive Protein 5.83 mg/L (<8.01); Calcium 8.7 mg/dL (8.6-10.3); EGFR Non-African American 90.1 (>60); Globulin 3.3 g/dL (2-4); Total Bilirubin 0.3 mg/dL (0.2-1.0); Total Protein 6.7 g/dL (6.4-8.9)
[2020-09-22] MEDS: Vancomycin 1,500 MG in NS 0.9% 250 ml 250 ML IVPB SCH (08:14)
[2020-09-22] MEDS ORDERED: Vancomycin Trough Check NOTE FOLLOW UP ONE (09:00)
[2020-09-22] MEDS: Insulin GLARGINE 100 un/ml 10 ml VIAL SUBCUT SCH (09:25)
[2020-09-22 11:32] VITALS: BP 165/81
== END 2020-09-22 15:50 | disposition swing bed (61) | DRG 344 ==
LOC: SSU 12:30
PROVIDERS: ADMIT Hospitalist; ATTEND Orthopaedic Surgery

== ENCOUNTER 2021-11-07 14:39 | Inpatient (IN) ==
[2021-11-07 20:23] LABS: ABS Basophils 0.1 10^3/ul (0-0.2); ABS Eosinophils 0.1 10^3/ul (0-0.6); ABS Lymphocytes 3.1 10^3/ul (1.0-4.8); ABS Monocytes 0.8 10^3/ul (0-0.8); ABS Neutrophils 8.4 10^3/ul (1.5-7.7); Eosinophil % 0.8 %; Hematocrit 45 % (42-52); Hemoglobin 15.1 g/dL (14.0-18.0); Lymphocyte % 24.4 %; Mean Corpuscular HGB Conc 33 g/dL (31-36); Mean Corpuscular Hemoglobin 31 pg (27-31); Mean Corpuscular Volume 94 fL (80-94); Mean Platelet Volume 9.5 fL (7.4-10.4); Platelet Count 296 10^3/uL (150-450); Red Blood Count 4.82 10^6 /uL (4.18-5.48); Red Cell Distribution Width 13 % (10-15); White Blood Count 12.5 10^3/uL (3.5-10.8)
[2021-11-07 20:31] LABS: Activated Partial Thrombo Time 35.9 seconds (26.0-38.0); INR 1.1 (0.89-1.11)
[2021-11-07 20:54] LABS: Albumin 3.9 g/dL (3.2-5.2); Albumin/Globulin Ratio 1.2 (1-3); C Reactive Protein 9.25 mg/L (<8.01); Calcium 9.3 mg/dL (8.6-10.3); Globulin 3.2 g/dL (2-4); Potassium 4.1 mmol/L (3.5-5.0); Total Bilirubin 0.5 mg/dL (0.2-1.0); Total Protein 7.1 g/dL (6.4-8.9); eGFR CKD-EPI 98.3 (>60)
[2021-11-07] MEDS ORDERED: Cefepime 2 GM in Dextrose 2 GM/50 ML BAG IV ONE (21:28)
[2021-11-07] MEDS ORDERED: metroNIDAZOLE IV 500 MG/100ML 500 MG/100 ML BAG IVPB ONE (21:28)
[2021-11-07] MEDS ORDERED: Vancomycin 1,250 MG in NS 0.9% 250 ml 250 ML IVPB SCH (22:00)
[2021-11-07] MEDS ORDERED: Ondansetron 4 mg VIAL 2 MG/ML 2 ml VIAL IV PRN (23:09)
[2021-11-07] MEDS ORDERED: Vancomycin per Pharmacy 1 EA NOTE FOLLOW UP SCH (23:45)
[2021-11-07] MEDS ORDERED: Dextrose 50% Syringe 50 ml 25 GM/50 ML SYRINGE IV PUSH PRN (23:55)
[2021-11-08] MEDS ORDERED: Vancomycin 1,750 MG in NS 0.9% 500 ml BAG 500 ML IVPB ONE (02:00)
[2021-11-08 06:05] LABS: ABS Lymphocytes 0.6 10^3/ul (1.0-4.8); ABS Monocytes 0.1 10^3/ul (0-0.8); ABS Neutrophils 2.9 10^3/ul (1.5-7.7); Eosinophil % 0.4 %; Hematocrit 26 % (42-52); Hemoglobin 8.4 g/dL (14.0-18.0); Lymphocyte % 15.8 %; Mean Corpuscular HGB Conc 32 g/dL (31-36); Mean Corpuscular Hemoglobin 33 pg (27-31); Mean Corpuscular Volume 103 fL (80-94); Mean Platelet Volume 7.9 fL (7.4-10.4); Platelet Count 159 10^3/uL (150-450); Red Blood Count 2.58 10^6 /uL (4.18-5.48); Red Cell Distribution Width 17 % (10-15); White Blood Count 3.6 10^3/uL (3.5-10.8)
[2021-11-08 07:02] LABS: Calcium 7.9 mg/dL (8.6-10.3); Potassium 4.1 mmol/L (3.5-5.0); eGFR CKD-EPI 113.3 (>60)
[2021-11-08] MEDS: Insulin GLARGINE 100 un/ml 10 ml VIAL SUBCUT SCH ×2 (07:52→20:24)
[2021-11-08] MEDS: Cefepime 2 GM in Dextrose 2 GM/50 ML BAG IV SCH ×2 (10:33→21:16)
[2021-11-08] MEDS ORDERED: Gadoteridol (CONTRAST) 279.3 MG/ML 10 ML IV ONE (16:41)
[2021-11-08] MEDS: Vancomycin 1,500 MG in NS 0.9% 250 ml 250 ML IVPB SCH (18:09)
[2021-11-09] MEDS: Vancomycin 1,500 MG in NS 0.9% 250 ml 250 ML IVPB SCH ×2 (05:12→17:11)
[2021-11-09 06:40] LABS: ABS Basophils 0.1 10^3/ul (0-0.2); ABS Eosinophils 0.1 10^3/ul (0-0.6); ABS Lymphocytes 1.8 10^3/ul (1.0-4.8); ABS Monocytes 0.5 10^3/ul (0-0.8); ABS Neutrophils 5.6 10^3/ul (1.5-7.7); Eosinophil % 1.4 %; Hematocrit 43 % (42-52); Hemoglobin 14.5 g/dL (14.0-18.0); Lymphocyte % 21.9 %; Mean Corpuscular HGB Conc 34 g/dL (31-36); Mean Corpuscular Hemoglobin 32 pg (27-31); Mean Corpuscular Volume 93 fL (80-94); Nucleated Red Blood Cells % 0.1; Platelet Count 227 10^3/uL (150-450); Red Blood Count 4.58 10^6 /uL (4.18-5.48); Red Cell Distribution Width 13 % (10-15); White Blood Count 8.2 10^3/uL (3.5-10.8)
[2021-11-09 07:08] LABS: Calcium 8.9 mg/dL (8.6-10.3); Magnesium 1.7 mg/dL (1.9-2.7); eGFR CKD-EPI 102.2 (>60)
[2021-11-09] MEDS: Insulin GLARGINE 100 un/ml 10 ml VIAL SUBCUT SCH ×2 (08:35→21:34)
[2021-11-09] MEDS: Cefepime 2 GM in Dextrose 2 GM/50 ML BAG IV SCH ×2 (12:32→21:59)
[2021-11-10] MEDS ORDERED: Vancomycin Trough Check NOTE FOLLOW UP ONE (05:30)
[2021-11-10 07:24] LABS: ABS Basophils 0.1 10^3/ul (0-0.2); ABS Eosinophils 0.1 10^3/ul (0-0.6); ABS Lymphocytes 2.1 10^3/ul (1.0-4.8); ABS Monocytes 0.6 10^3/ul (0-0.8); ABS Neutrophils 6.2 10^3/ul (1.5-7.7); Eosinophil % 1.3 %; Hematocrit 43 % (42-52); Hemoglobin 14.7 g/dL (14.0-18.0); Lymphocyte % 22.9 %; Mean Corpuscular HGB Conc 34 g/dL (31-36); Mean Corpuscular Hemoglobin 32 pg (27-31); Mean Corpuscular Volume 93 fL (80-94); Platelet Count 224 10^3/uL (150-450); Red Blood Count 4.61 10^6 /uL (4.18-5.48); Red Cell Distribution Width 13 % (10-15); White Blood Count 9.1 10^3/uL (3.5-10.8)
[2021-11-10 07:38] LABS: Calcium 8.9 mg/dL (8.6-10.3); Magnesium 1.7 mg/dL (1.9-2.7); eGFR CKD-EPI 107.4 (>60)
[2021-11-10 07:44] LABS: Vancomycin Trough 9.3 mcg/mL; eGFR CKD-EPI 107.4 (>60)
[2021-11-10] MEDS ORDERED: Magnesium Sulfate 2 gm BAG 2 GM/50 ML BAG IVPB ONE (07:56)
[2021-11-10] MEDS: Insulin GLARGINE 100 un/ml 10 ml VIAL SUBCUT SCH ×2 (08:20→20:04)
[2021-11-10] MEDS: Vancomycin 1,500 MG in NS 0.9% 250 ml 250 ML IVPB SCH (08:30)
[2021-11-10] MEDS: Vancomycin 1,250 MG in NS 0.9% 250 ml 250 ML IVPB SCH ×2 (09:56→16:56)
[2021-11-10] MEDS: Cefepime 2 GM in Dextrose 2 GM/50 ML BAG IV SCH ×2 (11:47→22:34)
[2021-11-11] MEDS: Vancomycin 1,250 MG in NS 0.9% 250 ml 250 ML IVPB SCH ×2 (01:04→09:57)
[2021-11-11] MEDS: Insulin GLARGINE 100 un/ml 10 ml VIAL SUBCUT SCH ×2 (08:26→21:33)
[2021-11-11] MEDS ORDERED: Vancomycin Trough Check NOTE FOLLOW UP ONE (08:30)
[2021-11-11 08:39] LABS: ABS Basophils 0.1 10^3/ul (0-0.2); ABS Lymphocytes 2.4 10^3/ul (1.0-4.8); ABS Monocytes 0.6 10^3/ul (0-0.8); ABS Neutrophils 8.5 10^3/ul (1.5-7.7); Eosinophil % 0.4 %; Hematocrit 48 % (42-52); Hemoglobin 16.1 g/dL (14.0-18.0); Lymphocyte % 20.9 %; Mean Corpuscular HGB Conc 34 g/dL (31-36); Mean Corpuscular Hemoglobin 31 pg (27-31); Mean Corpuscular Volume 93 fL (80-94); Mean Platelet Volume 9.7 fL (7.4-10.4); Nucleated Red Blood Cells % 0.2; Platelet Count 257 10^3/uL (150-450); Red Blood Count 5.17 10^6 /uL (4.18-5.48); Red Cell Distribution Width 13 % (10-15); White Blood Count 11.7 10^3/uL (3.5-10.8)
[2021-11-11 09:23] LABS: C Reactive Protein 3.03 mg/L (<8.01); Calcium 9.1 mg/dL (8.6-10.3); Potassium 4.2 mmol/L (3.5-5.0); eGFR CKD-EPI 102.2 (>60)
[2021-11-11 09:24] LABS: Vancomycin Trough 15.1 mcg/mL
[2021-11-11] MEDS: Cefepime 2 GM in Dextrose 2 GM/50 ML BAG IV SCH (12:27)
[2021-11-12] MEDS: Insulin GLARGINE 100 un/ml 10 ml VIAL SUBCUT SCH (08:24)
[2021-11-12] MEDS ORDERED: cefTRIAXone 2 gm/50 mL D5W 2 GM/50 ML BAG IV SCH (09:00)
[2021-11-12 09:15] LABS: eGFR CKD-EPI 104.9 (>60)
[2021-11-12 11:17] VITALS: BP 137/74
== END 2021-11-12 16:45 | disposition home or self-care (01) | DRG 344 ==
LOC: EDHOLD 14:39 → ED 14:39 → SUATTDRO 23:09 → MEDTELE 11-08 02:52 → MED 11-10 03:15
PROVIDERS: ADMIT Student in an Organized Health Care Education/Training Program; ATTEND Pediatrics